=== PATIENT | male | born 1935 | race Caucasian/White ===

== ENCOUNTER → 2019-02-02 06:35 | Outpatient (CLI) | payer MEDICARE, BC, SELFPAY | PROVIDERS: Family Provider Family Medicine; PCP Family Medicine; Referring Provider Family Medicine; Visit Provider Family Medicine | DX: R06.01 Orthopnea (principal); R06.02 Shortness of breath | CPT/HCPCS: 78452; 93017; A9500; A4216; J2785 ==

== ENCOUNTER → 2019-02-24 11:10 | Outpatient (CLI) | payer MEDICARE, BC, SELFPAY ==
[2019-02-24 07:36] VITALS: BMI 23.9
--- NOTE | 2019-02-24 11:17 | RAD_ITS ---
STUDY: X-RAY CHEST REASON FOR EXAM: Male, 83 years old. Chest pain, shortness of breath. TECHNIQUE: PA and lateral views of the chest. COMPARISON: 03/28/2017 FINDINGS: Status post median sternotomy. The lungs are clear and expanded. There is no demonstrated pleural abnormality. Normal size heart. Normal mediastinum and jesus. Normal visualized pulmonary arteries. Normal visualized aortic arch and descending thoracic aorta. Normal visualized thoracic spine. Normal visualized ribs, clavicles, and shoulders. There is no demonstrated abnormality of the visualized soft tissue structures of the upper abdomen. RAD/Chest PA and Lateral IMPRESSION: No active disease. Electronically Signed: Gilles Gaona MD at 9:10 EDT Tel , Service support ,
[2019-02-24 11:47] LABS: Absolute Lymphocyte Count 2.16 X10^3/uL (0.83-4.51); Absolute Neutrophil Count 3.7 X10^3/uL (2.0-7.7); Basophil# 0.05 X10^3/uL; Basophil% 0.8 % (0-1); Eosinophil# 0.22 X10^3/uL; Eosinophils% 3.3 % (0-5); Hematocrit 40.4 % (40-54); Hemoglobin 13.2 g/dL (13.0-16.5); Lymphocyte # 2.16 X10^3/ul (4.0); Lymphocyte % 32.8 % (19-41); Mean Corp Hgb Conc 32.7 g/dL (32-36); Mean Corpuscular Hgb 30.2 pg (27.0-32.0); Mean Corpuscular Volume 92.4 fL (80-94); Mean Platelet Vol. 9.7 fl (6.2-12.0); Monocyte# 0.45 X10^3/uL; Monocyte% 6.8 % (0-10); NRBC Flagged by Analyzer 0 % (0-5); Neutrophil # 3.67 X10^3/uL (2.7-7.7); Neutrophil % 55.8 % (47-70); Platelet Count 213 K/mm3 (150-450); RBC Distribution Width CV 13.6 % (11.6-14.6); RBC Distribution Width SD 46.4 fl (35.1-43.9); Red Blood Count 4.37 M/mm3 (4.6-6.2); White Blood Count 6.6 K/mm3 (4.4-11.0)
[2019-02-24 12:06] LABS: Anion Gap 5 (5-15); BUN 23 mg/dL (7-18); BUN/Creat Ratio 20.7 RATIO (10-20); Calcium,Total 9.1 mg/dL (8.5-10.1); Chloride 104 mmol/L (98-107); Creatinine, Serum 1.11 mg/dL (0.70-1.30); EST Glomerular Filtration Rate 68 mL/min (>60); Est Glom Filt Rate - Afr Amer 82 mL/min (>60); Glucose 120 mg/dL (74-106); Potassium 3.8 mmol/L (3.5-5.1); Sodium Level 139 mmol/L (136-145)
== END ==
PROVIDERS: Family Provider Family Medicine; PCP Family Medicine; Referring Provider Internal Medicine Cardiovascular Disease; Visit Provider Internal Medicine Cardiovascular Disease
DX: Z95.1 Presence of aortocoronary bypass graft (principal); I25.709 Atherosclerosis of coronary artery bypass graft(s), unspecified, with unspecified angina pectoris; I49.3 Ventricular premature depolarization; I10 Essential (primary) hypertension; E78.5 Hyperlipidemia, unspecified; Z95.5 Presence of coronary angioplasty implant and graft
CPT/HCPCS: 36415; 71046; 80048; 85025

== ENCOUNTER 2019-03-01 07:34 | Day surgery (SDC) | payer MEDICARE, BC, SELFPAY ==
[2019-02-24 07:36] VITALS: BMI 23.9
[2019-03-01 07:59] VITALS: BMI 21.7
--- NOTE | 2019-03-11 09:58 | CL.D_ITS ---
Patient Name: RONALD RIVERS Study Date: 03/01/2019 Performing: Dakota Correa MD Ht: 71 inches 180.34 cm : 1935 Wt: 147.69 lbs 66.99 kg Age: 83 Gender: male BSA: 1.85 PROCEDURE(S) PERFORMED [id number]/COR/LV/CABG CLINICAL PROFILE AND INDICATIONS Indications: Suspected CAD Heart Failure: None Stress/Imaging Date: 02/02/19Stress Test with SPECT MPI: Positive Low Risk CAD Presentations: Unstable angina. CONCLUSIONS Patent left internal mammary artery to the left anterior descending artery, sequential saphenous vein graft to the diagonal branch, obtuse marginal branch 1 and 2, are noted to be patent, and the previo usly stented right coronary artery is noted to be patent. RECOMMENDATIONS Medical therapy DESCRIPTION OF PROCEDURE The patient arrived to the procedure lab. The risks and benefits of the procedure as well as a full d escription of our services here and current unavailability of surgical backup were fully explained to the patient and/or their significant other prior to the catheterization. The Timeout was completed, verifying the correct patient and procedure. The patient's procedural site was prepped and draped in the usual fashion. Local anesthetic was given subcutaneously to right groin region with Lidocaine 2%. Using a modified Seldinger technique, arterial access was obtained via the right femoral artery, a 5 Fr sheath was inserted. Left Coronary Artery selective angiography was performed in multiple views u sing a 5 Fr. JL4 catheter. Saphenous Vein graft to the DIAG and om sequential selective angiography was performed in multiple views using a 5 Fr. 3DRC (Kee) catheter. Left internal mammary artery graft to the LAD selective angiography was performed in multiple views using a 5 Fr. 3DRC (Kee) catheter. Right Coronary Artery selective angiography was then performed in multiple views using a 5 Fr. 3DRC (Kee) catheter. Left Ventriculography was performed in ROJAS projection using a 5 Fr. Pigtail catheter. LV to AO pullback pressures were then recorded.Contrast was injected throug h the sheath and the Right Iliac and Femoral artery were assessed for possible closure device.The art erial sheath was pulled and a Mynx closure device was deployed for hemostasis CORONARY ANGIOGRAPHY DOMINANCE: Right Dominant LEFT HEART ASSESSMENT Left Ventricular Ejection Fraction: by LV Gram 60 % Normal LV wall motion Normal Left Ventricular systolic function LEFT MAIN: 40 % Stenosis LEFT ANTERIOR DESCENDING ARTERY: PROX LAD: is occluded CIRCUMFLEX ARTERY: Mild luminal irregularities less than 30% RIGHT CORONARY ARTERY: Previously placed stent is patent GRAFTS: Sequential graft to the Sequential to the diagonal branch, first obtuse and second obtuse marginal b ranch is noted to be patent. DE LA CRUZ graft to the Mid LAD is patent COMPLICATIONS No Complications PROCEDURE MEDICATIONS Versed 1 mg IV Oxygen: 2 L/min via nasal cannula Baby Aspirin (81mg) 1 Tabs PO @ 03/01/2019 08:17:58 SUMMARY OF HEMODYNAMIC DATA Time AIR REST ECG 08:08:18 AO 130/57 (84) SA 11:10:06 LV 99/-9, 3 11:20:44 LV 100/-9, 3 11:20:50 LV 90/-9, -6 11:21:57 LV 95/-6, -2 11:22:04 LVp 88/-6, -4 11:22:09 AOp 93/39 (57) 11:22:15 Signed By Dakota Correa MD On 03/01/2019 11:37:07 AM Dakota Correa MD
== END 2019-03-01 14:46 | disposition home or self-care (01) ==
LOC: CLSP 07:36
PROVIDERS: Family Provider Family Medicine; PCP Family Medicine; Referring Provider Internal Medicine Cardiovascular Disease; Visit Provider Internal Medicine Cardiovascular Disease
DX: I25.709 Atherosclerosis of coronary artery bypass graft(s), unspecified, with unspecified angina pectoris (principal); I49.3 Ventricular premature depolarization; I10 Essential (primary) hypertension; E78.5 Hyperlipidemia, unspecified; Z95.1 Presence of aortocoronary bypass graft; Z95.5 Presence of coronary angioplasty implant and graft; Z79.82 Long term (current) use of aspirin; Z79.899 Other long term (current) drug therapy
CPT/HCPCS: 93459; 99152; 99153; C1760; J7040; C1769; Q9967

== ENCOUNTER → 2019-08-12 09:44 | Outpatient (CLI) | payer MEDICARE, BC, SELFPAY ==
[2019-08-04 13:24] VITALS: BMI 22.7
--- NOTE | 2019-08-12 09:45 | CDU_ITS ---
Reason For Study: Carotid bruit Rt. Velocities/BP Lt. Velocities/BP Prox CCA 114.7/18.2 cm/sec. Prox CCA 100.9/18.8 cm/sec. Mid CCA 113.8/18.8 cm/sec. Mid CCA 88.1/24.3 cm/sec. Dist CCA 112/22.5 cm/sec. Dist CCA 69.9/17 cm/sec. Prox ICA 63/12.6 cm/sec. Prox ICA 130.1/46.7 cm/sec. Mid ICA 76.5/32.3 cm/sec. Mid ICA 138.9/18.2 cm/sec. Dist ICA 94.9/39.7 cm/sec. Dist ICA 81.4/29.8 cm/sec. Rt. ICA/CCA = 0.8. Lt. ICA/CCA = 1.6. Prox ECA 91.2/7.7 cm/sec. Prox ECA 117.3/11.5 cm/sec. Rt. Vert. 47.5/15.4 cm/sec. Lt. Vert. 67.9/20 cm/sec. Right Extracranial There is intimal thickening but no significant atherosclerotic plaque noted in the right common carotid artery. There is heterogeneous, smooth atherosclerotic plaque noted in the right internal carotid artery. There is intimal thickening but no significant atherosclerotic plaque noted in the right external carotid artery. Antegrade flow is noted in the right vertebral artery. Left Extracranial There is intimal thickening but no significant atherosclerotic plaque noted in the left common carotid artery. There is heterogeneous, irregular atherosclerotic plaque noted in the left internal carotid artery. There is intimal thickening but no significant atherosclerotic plaque noted in the left external carotid artery. Antegrade flow is noted in the left vertebral artery. Procedure Carotid Duplex 78834. Exam performed in department. Interpretation Summary Smooth plague at the proximal right internal carotid with <50% stenosis <50% stenosis right external carotid Calcific plague with shadowing distal left common carotid and proximal left internal carotid and external carotid arteries 50-69% stenosis left internal carotid <50% stenosis left external carotid Patent, antegrade vertebrals bilaterally Ordering Physician: Katerin Rodriguez Referring Physician: Aries Chaudhary Performed By: Alberta Santiago RVT
== END ==
PROVIDERS: PCP Family Medicine; Referring Provider Physician Assistant Medical; Visit Provider Physician Assistant Medical
DX: R09.89 Other specified symptoms and signs involving the circulatory and respiratory systems (principal)
CPT/HCPCS: 93880

== ENCOUNTER → 2020-10-23 12:37 | Outpatient (CLI) | payer MEDICARE, BC, SELFPAY ==
[2020-10-23 11:51] VITALS: BMI 22.1
[2020-10-23 13:02] LABS: Absolute Lymphocyte Count 2.38 X10^3/uL (0.83-4.51); Absolute Neutrophil Count 3.4 X10^3/uL (2.0-7.7); Basophil# 0.06 X10^3/uL; Basophil% 0.9 % (0-1); Eosinophil# 0.14 X10^3/uL; Eosinophils% 2.2 % (0-5); Hematocrit 39.4 % (40-54); Hemoglobin 13.1 g/dL (13.0-16.5); Lymphocyte # 2.38 X10^3/ul (0.83-4.51); Lymphocyte % 37.4 % (19-41); Mean Corp Hgb Conc 33.2 g/dL (32-36); Mean Corpuscular Hgb 30.8 pg (27.0-32.0); Mean Corpuscular Volume 92.7 fL (80-94); Mean Platelet Vol. 9.2 fl (6.2-12.0); Monocyte# 0.34 X10^3/uL; Monocyte% 5.3 % (0-10); NRBC Flagged by Analyzer 0 % (0-5); Neutrophil # 3.44 X10^3/uL (2.7-7.7); Platelet Count 301 K/mm3 (150-450); RBC Distribution Width CV 12.9 % (11.6-14.6); RBC Distribution Width SD 43.7 fl (35.1-43.9); Red Blood Count 4.25 M/mm3 (4.6-6.2); White Blood Count 6.4 K/mm3 (4.4-11.0)
[2020-10-23 14:20] LABS: BNP,B-Type NATRIURETIC PEPTIDE 142.6 pg/mL (0-100)
[2020-10-23 14:23] LABS: Anion Gap 5 (5-15); BUN 20 mg/dL (7-18); Calcium,Total 9.6 mg/dL (8.5-10.1); Chloride 101 mmol/L (98-107); Creatinine, Serum 0.95 mg/dL (0.70-1.30); EST Glomerular Filtration Rate 80 mL/min (>60); Est Glom Filt Rate - Afr Amer 97 mL/min (>60); Glucose 104 mg/dL (74-106); Magnesium 2.5 mg/dL (1.6-2.6); Potassium 3.8 mmol/L (3.5-5.1); Sodium Level 136 mmol/L (136-145)
== END ==
PROVIDERS: PCP Family Medicine; Referring Provider Nurse Practitioner Family; Visit Provider Nurse Practitioner Family
DX: E78.5 Hyperlipidemia, unspecified (principal); I25.709 Atherosclerosis of coronary artery bypass graft(s), unspecified, with unspecified angina pectoris; I10 Essential (primary) hypertension; R06.00 Dyspnea, unspecified; Z95.1 Presence of aortocoronary bypass graft; Z95.5 Presence of coronary angioplasty implant and graft
CPT/HCPCS: 36415; 80048; 83735; 83880; 85025

== ENCOUNTER → 2020-11-23 08:43 | Outpatient (CLI) | payer MEDICARE, BC, SELFPAY ==
[2020-11-14 15:00] VITALS: BMI 22.1
[2020-11-15 11:25] VITALS: BMI 22.1
--- NOTE | 2020-11-23 08:47 | CDU_ITS ---
Reason For Study: Carotid stenosis Rt. Velocities/BP Lt. Velocities/BP Prox CCA 123.5/23 cm/sec. Prox CCA 141.8/36.4 cm/sec. Mid CCA 77.8/13.9 cm/sec. Mid CCA 103.4/23 cm/sec. Dist CCA 127.1/21.2 cm/sec. Dist CCA 80.6/15.5 cm/sec. Prox ICA 51.1/12.7 cm/sec. Prox ICA 130.2/44.4 cm/sec. Mid ICA 72.1/30.2 cm/sec. Mid ICA 137.5/24.3 cm/sec. Dist ICA 86.3/28.1 cm/sec. Dist ICA 80.2/23.7 cm/sec. Rt. ICA/CCA = 0.70. Lt. ICA/CCA = 1.33. Prox ECA 101.6/12.1 cm/sec. Prox ECA 109.4/5.3 cm/sec. Rt. Vert. 42.4/14.7 cm/sec. Lt. Vert. 53.8/16.9 cm/sec. Right Extracranial There is intimal thickening but no significant atherosclerotic plaque noted in the right common carotid artery. There is homogeneous, smooth atherosclerotic plaque noted in the right internal carotid artery. There is intimal thickening but no significant atherosclerotic plaque noted in the right external carotid artery. Antegrade flow is noted in the right vertebral artery. Left Extracranial There is intimal thickening but no significant atherosclerotic plaque noted in the left common carotid artery. There is heterogeneous, irregular atherosclerotic plaque noted in the left internal carotid artery. There is intimal thickening but no significant atherosclerotic plaque noted in the left external carotid artery. Antegrade flow is noted in the left vertebral artery. Procedure Carotid Duplex 22794. This is a Carotid Duplex examination using B-mode, color flow and specral Doppler. Exam performed in department. VL/Carotid Duplex Ultrasound Interpretation Summary Smooth plaque within the right common carotid and internal carotid artery with less than 50% stenosis of the internal carotid artery Less than 50% stenosis right external carotid artery Calcific plaque with shadowing at the proximal left internal carotid artery wit h 50 to 69% stenosis. Less than 50% stenosis left external carotid artery Patent and antegrade vertebral arteries bilaterally No change from the previous examination of August 12, 2019 Ordering Physician: Dom Garcia Referring Physician: Aries Chaudhary Performed By: Alberta Santiago RVT and Student
== END ==
PROVIDERS: PCP Family Medicine; Referring Provider Surgery; Visit Provider Surgery
DX: I65.23 Occlusion and stenosis of bilateral carotid arteries (principal)
CPT/HCPCS: 93880

== ENCOUNTER 2020-11-27 05:16 | Day surgery (SDC) | payer MEDICARE, BC, SELFPAY ==
[2020-11-14 15:00] VITALS: BMI 22.1
[2020-11-15 11:25] VITALS: BMI 22.1
[2020-11-27] VITALS (7 sets, daily range): BP systolic 94–141; BP diastolic 53–89; PULSE 64–84; RESP 16; TEMP 36.1–36.6; O2SAT 96–100; BMI 22.6
--- NOTE | 2020-11-27 | GASB_PTH ---
PATIENT: RONALD RIVERS LOC: EN U#:[id number] AGE/SX: 85/M ROOM: RE11/27/[address]: Dr. Dom Garcia MD : 1935 BED: DIS: 11/27/2020 SPEC #: [id number] RECD: 11/27/20 07:11 STATUS: TRANG WILLINGHAMYovany #: [id number] HANNAH: 11/27/20 00:[address]: Dom Garcia DEPT: SURGICAL PATHOLOGY RECD BY: Fabiano Schmitz ENTERED: 11/27/20 09:50 SP TYPE: Gastric Bx OTHR DR: Dr. Aries Chaudhary MD Tissues: A - Gastric mucous membrane B - Gastric mucous membrane C - Esophageal mucous membrane D - Esophageal mucous membrane Procedures: Special Stain Group I Surgery Specimen Level IV GMS Stain (control) HEADER OPERATION: EGD (MAC), possible dilatation PRE-OP DIAGNOSIS: History of esophageal stricture TISSUE SUBMITTED: A - Duodenum biopsy, B - Antrum biopsy for H. pylori and path, C - Distal esophagus biopsy, D - Mid esophagus biopsy MICROSCOPIC DIAGNOSIS A. Duodenum, biopsy: Minimal nonspecific chronic inflammation. B. Gastric antrum, biopsy: Minimal chronic inflammation. See comment. C. Distal esophagus, biopsy: Focal changes of reflux. D. Mid esophagus, biopsy: Focal acute inflammation. Negative for fungal organisms. See comment. AM:brandi 11/28/2020 COMMENT B. The results of immunohistochemistry for Helicobacter pylori will be reported separately ([id number]). D. GMS stain with matched control was used in the evaluation of this case. MICROSCOPIC DESCRIPTION Slides are reviewed. GROSS DESCRIPTION A - Received in fixative is one container labeled with the patient's name and designated duodenum biopsy. The specimen consists of one irregular fragment of light florence soft tissue that measures 0.6 x 0.2 x 0.1 cm. The specimen is totally submitted in one cassette. B - Received in fixative is one container labeled with the patient's name and designated antrum biopsy. The specimen consists of one irregular fragment of light florence soft tissue that measures 0.4 x 0.2 x 0.1 cm. The specimen is totally submitted in one cassette. C - Received in fixative is one container labeled with the patient's name and designated distal esophagus biopsy. The specimen consists of two irregular fragments of light florence soft tissue that in aggregate measure 0.4 x 0.2 x 0.1 cm. The specimen is totally submitted in one cassette. D - Received in fixative is one container labeled with the patient's name and designated mid esophagus biopsy. The specimen consists of one irregular fragment of light florence soft tissue that measures 0.6 x 0.3 x 0.1 cm. The specimen is totally submitted in one cassette. / SJ:rg 11/28/2020 TC:2 CPT: 56875 x4, 84295
--- NOTE | 2020-11-27 05:43 | PCM.HP.BLA ---
History and Physical Date of Admission: 11/27/20 November 23, 2020 Reason For Study: Carotid stenosis Rt. Velocities/BP Lt. Velocities/BP Prox CCA 123.5/23 cm/sec. Prox CCA 141.8/36.4 cm/sec. Mid CCA 77.8/13.9 cm/sec. Mid CCA 103.4/23 cm/sec. Dist CCA 127.1/21.2 cm/sec. Dist CCA 80.6/15.5 cm/sec. Prox ICA 51.1/12.7 cm/sec. Prox ICA 130.2/44.4 cm/sec. Mid ICA 72.1/30.2 cm/sec. Mid ICA 137.5/24.3 cm/sec. Dist ICA 86.3/28.1 cm/sec. Dist ICA 80.2/23.7 cm/sec. Rt. ICA/CCA = 0.70. Lt. ICA/CCA = 1.33. Prox ECA 101.6/12.1 cm/sec. Prox ECA 109.4/5.3 cm/sec. Rt. Vert. 42.4/14.7 cm/sec. Lt. Vert. 53.8/16.9 cm/sec. Right Extracranial There is intimal thickening but no significant atherosclerotic plaque noted in the right common carotid artery. There is homogeneous, smooth atherosclerotic plaque noted in the right internal carotid artery. There is intimal thickening but no significant atherosclerotic plaque noted in the right external carotid artery. Antegrade flow is noted in the right vertebral artery. Left Extracranial There is intimal thickening but no significant atherosclerotic plaque noted in the left common carotid artery. There is heterogeneous, irregular atherosclerotic plaque noted in the left internal carotid artery. There is intimal thickening but no significant atherosclerotic plaque noted in the left external carotid artery. Antegrade flow is noted in the left vertebral artery. Procedure Carotid Duplex 06814. This is a Carotid Duplex examination using B-mode, color flow and specral Doppler. Exam performed in department. VL/Carotid Duplex Ultrasound Interpretation Summary Smooth plaque within the right common carotid and internal carotid artery with less than 50% stenosis of the internal carotid artery Less than 50% stenosis right external carotid artery Calcific plaque with shadowing at the proximal left internal carotid artery with 50 to 69% stenosis. Less than 50% stenosis left external carotid artery Patent and antegrade vertebral arteries bilaterally No change from the previous examination of August 12, 2019 Ordering Physician: Dom Garcia Referring Physician: Aries Chaudhary Performed By: Alberta Santiago RVT and Student Intake Visit Reasons: Esophagogastroduodenoscopy Chief Complaint: pain/burning frequent urinary Rodeo Clown Required: No Is patient in pain?: No Allergies codeine Adverse Reaction (Verified 11/14/20 14:59) Unknown Dgxekbf-Nfp-Pxo Reductase Inhibitor Adverse Reaction (Verified 11/14/20 14:59) myalgias Medications ascorbic acid (vitamin C) 500 mg PO DAILY@0800 04/09/15 [History Confirmed 11/14/20] cod liver oil 1 ea PO DAILY 04/09/15 [History Confirmed 11/14/20] glucosam mensah rqd-ywbaizbvw-O-Mn 1 ea PO DAILY 04/09/15 [History Confirmed 11/14/20] tamsulosin 0.4 cap PO DAILY 04/09/15 [History Confirmed 11/14/20] aspirin 81 mg PO DAILY@0800 04/11/15 [History Confirmed 11/14/20] amlodipine 5 mg tablet 5 mg PO DAILY 02/16/19 [History Confirmed 11/14/20] rosuvastatin 10 mg tablet 10 mg PO QWEEK #14 tab 09/14/19 [Rx Confirmed 11/14/20] metoprolol succinate 25 mg tablet,extended release 24 hr 25 mg PO DAILY #90 tab 12/02/19 [Rx Confirmed 11/14/20] lisinopril 20 mg tablet 20 mg PO DAILY #90 tab 04/21/20 [Rx Confirmed 11/14/20] famotidine 40 mg tablet 40 mg PO BID tab 10/23/20 [History Confirmed 11/14/20] nitroglycerin 0.4 mg sublingual tablet 0.4 mg SUBLINGUAL Q5-15M PRN 10/23/20 [History Confirmed 11/14/20] vitamin E (dl, acetate) 90 mg (200 unit) capsule 200 unit PO DAILY 10/23/20 [History Confirmed 11/14/20] hydrochlorothiazide 25 mg tablet 25 mg PO DAILY tab 10/26/20 [History Confirmed 11/14/20] PFSH Medical History 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 Bilateral carotid artery stenosis Essential (primary) hypertension Glaucoma History of esophageal stricture Hyperlipidemia Premature ventricular contractions Prostate cancer Secondary pulmonary arterial hypertension Stenosis of left carotid artery Surgical History H/O coronary artery bypass surgery (11/09/02) History of coronary artery stent placement (07/22/12) History of esophageal dilatation History of left heart catheterization (03/01/19) History of spinal fusion Social History Smoking Status: Never smoker alcohol intake: never substance use type: does not use caffeine: No HPI HPI HPI: RONALD RIVERS, is a 85 M who presents to the office today for surgical consultation potential treatment for esophageal dysphagia and known esophageal stricture. The patient's primary care physician is Dr. Chaudhary. His toll line inspector is Dr. Dakota Correa. The patient has had a long-term history of esophageal strictures. His most recent upper endoscopy was February 23, [address] Hong Kim. Benign appearing esophageal stenosis was identified. There were rings of esophagus suspicious for eosinophilic esophagitis in the mid esophagus but biopsies proved just to find inflammatory tissue. The stenosis that was identified was mildly severe and dilated to 20 mm with a 18 1920 mm balloon. It is of note that previously April 07, [address] Hong Kim an upper endoscopy was performed at that time as well. At that point maximum dilatation was performed to 18 mm. Again 1 stenosis was identified. The location of the stenosis not clarified in either of those 2 notes[address] Prior to that Dr. Vik Cantu performed an upper endoscopy January 29, 2013. There was a benign-appearing stricture found at the GE junction. That was dilated to 18 mm at that time. Small hiatal hernia was identified. It is of note that the patient has been on famotidine 40 mg twice daily. Neither he nor his thinks that he is ever been on a proton pump inhibitor. The patient does have atherosclerotic coronary vascular disease. In 2002 had coronary bypass grafting x5. June 2009 he had a drug-eluting stent placed in the right coronary. 2012 he had a drug-eluting stent placed in the proximal right coronary artery. In January 2019 he had a abnormal stress test and had cardiac catheterization which apparently did not demonstrate any new disease. He is not currently on any clopidogrel. He is managed with fish oil and low-dose aspirin. He has symptoms where repetitively meat boluses and bread will get stuck. He has to drink hot water with his meals to help dilate his esophagus. He has to use Coca-Cola to help dislodge frequent episodes of partial obstruction. ROS General General: Yes fatigue; No weight change, appetite, colon cancer, breast cancer or weakness HEENT HEENT: Yes difficulty swallowing and swollen glands; No eye injury, eye surgery or hoarseness Endo Endocrine: No thyroid disease, diabetes mellitus, thyroid cancer, Hair loss, heat intolerance or cold intolerance Skin Skin: No rash or changing moles Breast Breast: No left breast lump, right breast lump, nipple discharge, breast pain, abnormal mammogram, abnormal US or breast enlargement Musc Musculoskeletal: Yes arthritis; No back problems, rheumatoid arthritis, gout or joint pain Cardio Cardiovascular: Yes heart disease, high blood pressure, heart attack and heart stent; No murmur, pacemaker, atrial fibrillation, palpitations, shortness of breat with exertion or chest pain Psych Psychiatric: No depression, anxiety or hearing voices Resp Respiratory: Yes shortness of breath, No sleep apnea, Yes cough, No COPD, No asthma, No emphysema and No wheezing Gastro Gastrointestinal: No abdominal pain, No nausea or vomiting, No diarrhea, No constipation, No blood in stool, Yes acid reflux, No hemorrhoids, No ulcers, No gallbladder problem and No black,tarry stools Paul Hematologic: No blood thinners, No blood disorders, No bleeding, No anemia and No blood clots Neuro Neurologic: No system reviewed and no additional complaints, except as documented, No as per HPI, No abnormal gait, No abnormal hearing, No abnormal movements, No abnormal speech, No behavioral changes, No burning sensations, No confusion, No convulsions, No disequilibrium, No dizziness, No localized weakness, No frequent falls, No headache(s), No lack of coordination, No loss of vision, No memory loss, Yes numbness, No other visual disturbances, No radicular pain, No restless legs, No sensory deficit, No syncope, Yes tingling, No tremor(s), No weakness and No other Exam Const General: cooperative, healthy appearing, comfortable and no acute distress [facility] Head: normal to inspection Eyes General: appearance normal, both eyes and all related structures Neck Carotids: normal carotid upstroke and no bruits Chest Chest palpation & inspection: normal inspection of the chest Resp Effort & Inspection: normal respiratory effort Auscultation: clear to auscultation bilaterally Cardio Rhythm: regular rhythm GI Palpation: soft and no hepatosplenomegaly Auscultation: normal bowel sounds Skin General: no rashes or lesions noted Extrem General: normal to inspection Psych Thought Content: normal Assessment and Plan Assessment and Plan (1) History of esophageal stricture: Status: Chronic (2) H/O coronary artery bypass surgery: Status: Resolved Comment: CABG x 5 DE LA CRUZ-LAD, Sequential SVG-D1, OM1, OM2, SVG-RPDA, 11/09/2002 (3) Stenosis of left carotid artery: Status: Chronic Orders: Orders: Carotid Duplex Ultrasound Today Plan Details Additional Comments: 85-year-old gentleman. Has had repetitive episodes of esophageal stricturing. He is managed with H2 haven famotidine 40 mg twice daily. By his report he has never been on a PPI. He is not on any anticoagulation other than fish oil and aspirin. We will have him hold that temporarily preprocedure. It may be a strong indication to place him on a PPI post procedure. As previously careful inspection for possible eosinophilic esophagitis will be pursued. We will also be checking for H. pylori. The patient's had a history of carotid stenosis. He has not had an updated carotid duplex exam. I do not detect a carotid bruit but certainly recommend pursuing repeat examination. The patient has not had COVID-19. Neither he nor his have been vaccinated. I did briefly discuss with them risk benefit of the Covid vaccine vaccination. I believe that this patient is at increased risk based upon his reflux disease and esophageal stricturing and coronary artery disease. He states that he will discuss that at his cardiology appointment tomorrow. I appreciate the opportunity of assisting with surgical care. We will pursue carotid duplex imaging and we will schedule him for a esophagogastroduodenoscopy with anticipated biopsy and distal esophageal dilatation. I anticipate this will be a mouabgi-cum-abwgf procedure. He is well aware of the potential risk of esophageal tearing or injury. We will have him hold his fish oil and aspirin preprocedure in hopes of limiting risk of bleeding. Copy: Dr. Aries Chaudhary and Dr. Dakota Correa and Forrest sims, MARCELLO Garcia M.D., F.A.C.S. Coding Level of Care Code Off vis,new,level 3 Diagnoses History of esophageal stricture Z87.19 H/O coronary artery bypass surgery Z95.1 Stenosis of left carotid artery I65.22 I have re-examined the patient. There are no clinical changes since date of exam.
[2020-11-27] MEDS: Lactated Ringers 1,000 ML 100 ML IV (05:59)
--- NOTE | 2020-11-27 06:30 | IMM_PTH ---
PATIENT: RONALD RIVERS LOC: EN U#:[id number] AGE/SX: 85/M ROOM: RE11/27/[address]: Dr. Dom Garica MD : 1935 BED: DIS: 11/27/2020 SPEC #: [id number] RECD: 11/27/20 09:12 STATUS: TRANG REYovany #: [id number] HANNAH: 11/27/20 06:[address]: Dom Garcia DEPT: IMMUNOHISTOCHEMISTRY RECD BY: Sandra Ramos ENTERED: 11/27/20 09:13 SP TYPE: IMMUNO OTHR DR: Dr. Aries Chaudhary MD Tissues: B - Stomach, NOS Procedures: H Pylori (initial) PHYSICIAN & INSTITUTION [place] [address] SPECIMEN INFORMATION: Tissue Source: B ? Antrum biopsy Clinical Info: Esophageal stricture Specimen Number: [id number] CPT code: 53771 METHODOLOGY: Deparaffinized sections of prefer/formalin-fixed tissue or PAP/DQ stained slides are incubated with monoclonal/polyclonal antibodies/oligonucleotide probes. Localization is made via biotin free immunoperoxidase method. Appropriate controls are performed and reacted as expected. Results on target cell population are indicated in the following table: RESULTS: ANTIBODY / CLONE RESULT Block B H Pylori (polyclonal) negative These tests were developed and their performance characteristics determined by [facility]. They may not have been cleared or approved by the U.[place]. Food and Drug Administration. The FDA has determined that such clearance or approval is not necessary. INTERPRETATION: B. Antrum, biopsy: Negative for Helicobacter pylori organisms. AM:brandi 11/28/2020
--- NOTE | 2020-11-27 06:30 | IMM_PTH ---
PATIENT: RONALD RIVERS LOC: EN U#:[id number] AGE/SX: 85/M ROOM: RE11/27/[address]: Dr. Dom Garcia MD : 1935 BED: DIS: 11/27/2020 SPEC #: [id number] RECD: 11/27/20 09:12 STATUS: TRANG REYovany #: [id number] HANNAH: 11/27/20 06:[address]: Dom Garcia DEPT: IMMUNOHISTOCHEMISTRY RECD BY: Sandra Ramos ENTERED: 11/27/20 09:13 SP TYPE: IMMUNO OTHR DR: Dr. Aries Chaudhary MD Tissues: B - Stomach, NOS Procedures: H Pylori (initial) PHYSICIAN & INSTITUTION [place] [id number] SPECIMEN INFORMATION: Tissue Source: B ? Antrum biopsy Clinical Info: Esophageal stricture Specimen Number: [id number] CPT code: 22115 METHODOLOGY: Deparaffinized sections of prefer/formalin-fixed tissue or PAP/DQ stained slides are incubated with monoclonal/polyclonal antibodies/oligonucleotide probes. Localization is made via biotin free immunoperoxidase method. Appropriate controls are performed and reacted as expected. Results on target cell population are indicated in the following table: RESULTS: ANTIBODY / CLONE RESULT Block B H Pylori (polyclonal) negative These tests were developed and their performance characteristics determined by [facility]. They may not have been cleared or approved by the U.S. Food and Drug Administration. The FDA has determined that such clearance or approval is not necessary. INTERPRETATION: B. Antrum, biopsy: Negative for Helicobacter pylori organisms. AM:brandi 11/27/2020
--- NOTE | 2020-11-27 07:04 | OP.CCLET_ITS ---
11/27/2020 Aries Chaudhary Re : Upper GI endoscopy procedure for Wade Carter Neena This procedure was performed on Friday, November 27, 2020. My impressions and recommendations are as follows: Impressions : - Z-line irregular, 40 cm from the incisors. - Benign-appearing esophageal stenosis. Dilated. - LA Grade A reflux esophagitis. Biopsied. - Medium-sized hiatal hernia. - Normal stomach. Biopsied. - Normal examined duodenum. Biopsied. - Normal middle third of esophagus. Biopsied. Recommendations : - Discharge patient to home. - Resume previous diet. - Continue present medications. - Return to my office in 10 days. My findings are described in the full procedure note, which is enclosed. If I can be of further assistance, please feel free to contact me at Doctor phone number(s): Work: . Sincerely, Dom Garcia MD 11/27/2020 7:03:38 AM This report has been signed electronically.
--- NOTE | 2020-11-27 07:04 | OP.EGD_ITS ---
Patient Name: Wade Myles Procedure Date: 11/27/2020 6:11 AM Date of : 1935 Age: 85 Procedure: Upper GI endoscopy Indications: Dysphagia Providers: Dom Garcia MD Referring MD: Dom Garcia MD Medicines: See the Anesthesia note for documentation of the administered medications Complications: No immediate complications. Procedure: Pre-Anesthesia Assessment: - Prior to the procedure, a History and Physical was performed, and patient medications and allergies were reviewed. The patient's tolerance of previous anesthesia was also reviewed. The risks and benefits of the procedure and the sedation options and risks were discussed with the patient. All questions were answered, and informed consent was obtained. Prior Anticoagulants: The patient has taken no previous anticoagulant or antiplatelet agents. ASA Grade Assessment: II - A patient with mild systemic disease. After reviewing the risks and benefits, the patient was deemed in satisfactory condition to undergo the procedure. After obtaining informed consent, the endoscope was passed under direct vision. Throughout the procedure, the patient's blood pressure, pulse, and oxygen saturations were monitored continuously. The Endoscope was introduced through the mouth, and advanced to the second part of duodenum. The upper GI endoscopy was accomplished without difficulty. The patient tolerated the procedure well. Scope In: 6:34:29 AM Scope Out: 6:48:30 AM Total Procedure Duration Time 0 hours 14 minutes 1 second Findings: The Z-line was irregular and was found 40 cm from the incisors. One benign-appearing, intrinsic stenosis was found 40 cm from the incisors. This stenosis was moderately severe and. The stenosis was traversed. A TTS dilator was passed through the scope. Dilation with an 18-19-20 mm balloon dilator was performed to 20 mm. The dilation site was examined following endoscope reinsertion and showed moderate improvement in luminal narrowing. Estimated blood loss was minimal. LA Grade A (one or more mucosal breaks less than 5 mm, not extending between tops of 2 mucosal folds) esophagitis with no bleeding was found 40 cm from the incisors. Biopsies were taken with a cold forceps for histology. A medium-sized hiatal hernia was present. The entire examined stomach was normal. Biopsies were taken with a cold forceps for histology. The examined duodenum was normal. Biopsies were taken with a cold forceps for histology. The middle third of the esophagus was normal. Biopsies were taken with a cold forceps for histology. Impression: - Z-line irregular, 40 cm from the incisors. - Benign-appearing esophageal stenosis. Dilated. - LA Grade A reflux esophagitis. Biopsied. - Medium-sized hiatal hernia. - Normal stomach. Biopsied. - Normal examined duodenum. Biopsied. - Normal middle third of esophagus. Biopsied. Recommendation: - Discharge patient to home. - Resume previous diet. - Continue present medications. - Return to my office in 10 days. Procedure Code(s): --- Professional --- 24553, Esophagogastroduodenoscopy, flexible, transoral; with transendoscopic balloon dilation of esophagus (less than 30 mm diameter) 35596, 59, Esophagogastroduodenoscopy, flexible, transoral; with biopsy, single or multiple Diagnosis Code(s): --- Professional --- K22.8, Other specified diseases of esophagus K22.2, Esophageal obstruction K21.0, Gastro-esophageal reflux disease with esophagitis K44.9, Diaphragmatic hernia without obstruction or gangrene R13.10, Dysphagia, unspecified CPT copyright 2017 [employer]. All rights reserved. The codes documented in this report are preliminary and upon medical records coder review may be revised to meet current compliance requirements. Dom Garcia MD 11/27/2020 7:03:38 AM This report has been signed electronically. Number of Addenda: 0 Note Initiated On: 11/27/2020 6:11 AM
== END 2020-11-27 07:56 ==
LOC: EN 05:17 → AC 05:18
PROVIDERS: PCP Family Medicine; Referring Provider Family Medicine; Visit Provider Surgery
PROC: 0DJ08ZZ Inspection of Upper Intestinal Tract, Via Natural or Artificial Opening Endoscopic (ICD-10-PCS; CPT 43235; principal; 2020-11-27 06:25)
DX: K22.2 Esophageal obstruction (principal); K22.8 Other specified diseases of esophagus; K21.00 Gastro-esophageal reflux disease with esophagitis, without bleeding; K44.9 Diaphragmatic hernia without obstruction or gangrene; I65.23 Occlusion and stenosis of bilateral carotid arteries; Z79.82 Long term (current) use of aspirin; Z95.5 Presence of coronary angioplasty implant and graft; Z20.828 Contact with and (suspected) exposure to other viral communicable diseases
CPT/HCPCS: 43239; 43249; 87426; 88305; 88312; 88342; C9803; J7120; J2405

== ENCOUNTER 2021-08-31 15:41 | Outpatient (CLI) | payer MEDICARE, BC, SELFPAY ==
[2021-08-31 17:36] LABS: AST(SGOT) 31 U/L (15-37); Alanine Aminotransfer ALT/SGPT 25 U/L (16-61); Albumin, Serum 3.3 g/dL (3.2-5.0); Alkaline Phosphatase 75 U/L (45-117); Bilirubin, Direct 0.17 mg/dL (0.00-0.30); Cholesterol 158 mg/dL (200); Globulin 3.4 g/dL (2.2-4.2); High Density Lipoprotein 64 mg/dL; Protein, Total 6.7 g/dL (6.4-8.2); Triglycerides 70 mg/dL; Very Low Density Lipoprotein 14 mg/dL (5-40)
== END 2021-08-31 23:59 | disposition home or self-care (01) ==
LOC: LAB 15:43
PROVIDERS: PCP Family Medicine; Visit Provider Internal Medicine Cardiovascular Disease
DX: E78.5 Hyperlipidemia, unspecified (principal); I25.709 Atherosclerosis of coronary artery bypass graft(s), unspecified, with unspecified angina pectoris
CPT/HCPCS: 36415; 80061; 80076

== ENCOUNTER → 2021-12-06 | Outpatient (CLI) | payer MEDICARE, BC, SELFPAY ==
--- NOTE | 2021-12-06 08:02 | CDU_ITS ---
Reason For Study: carotid stenosis Rt. Velocities/BP Lt. Velocities/BP Prox CCA 99.5/14.7 cm/sec. Prox CCA 110.1/18.8 cm/sec. Mid CCA 113.9/21.3 cm/sec. Mid CCA 99.8/16.3 cm/sec. Dist CCA 66.9/13.4 cm/sec. Dist CCA 71.6/9.0 cm/sec. Prox ICA 59.1/20.0 cm/sec. Prox ICA 144.8/37.1 cm/sec. Mid ICA 64.3/22.6 cm/sec. Mid ICA 96.2/22.5 cm/sec. Dist ICA 85.2/26.5 cm/sec. Dist ICA 87.6/29.8 cm/sec. Rt. ICA/CCA = .7. Lt. ICA/CCA = 1.5. Prox ECA 107.3/8.2 cm/sec. Prox ECA 125.6/7.7 cm/sec. Rt. Vert. 44.3/12.4 cm/sec. Lt. Vert. 40.9/13.9 cm/sec. Right Extracranial There is intimal thickening but no significant atherosclerotic plaque noted in the right common carotid artery. There is heterogeneous, irregular atherosclerotic plaque noted in the right internal carotid artery. There is intimal thickening but no significant atherosclerotic plaque noted in the right external carotid artery. Antegrade flow is noted in the right vertebral artery. Left Extracranial There is intimal thickening but no significant atherosclerotic plaque noted in the left common carotid artery. There is heterogeneous, irregular atherosclerotic plaque noted in the left internal carotid artery. There is intimal thickening but no significant atherosclerotic plaque noted in the left external carotid artery. Antegrade flow is noted in the left vertebral artery. Procedure Carotid Duplex [id number]. This is a Carotid Duplex examination using B-mode, color flow and specral Doppler. The exam was diagnostic. Exam performed in department. VL/Carotid Duplex Ultrasound Interpretation Summary Regular calcific plaque in the proximal right internal carotid artery with less than 50% stenosis Less than 50% stenosis right external carotid artery Minimal calcific plaque with shadowing at the proximal left internal carotid ar katie with 50 to 69% stenosis. Less than 50% stenosis left external carotid artery Patent and antegrade vertebral arteries bilaterally No change from the previous examination of November 23, 2020 Ordering Physician: Dom Garcia Performed By: Bharathi Moscoso RVT
== END | disposition home or self-care (01) ==
LOC: CVS 08:01
PROVIDERS: PCP Family Medicine; Visit Provider Surgery
DX: I65.23 Occlusion and stenosis of bilateral carotid arteries (principal)
CPT/HCPCS: 93880

== ENCOUNTER → 2021-12-24 | Outpatient (CLI) | payer MEDICARE, BC, SELFPAY ==
[2021-12-24 10:51] LABS: Absolute Lymphocyte Count 2.42 X10^3/uL (0.83-4.51); Absolute Neutrophil Count 3.3 X10^3/uL (2.0-7.7); Basophil# 0.05 X10^3/uL; Basophil% 0.8 % (0-1); Eosinophil# 0.11 X10^3/uL; Eosinophils% 1.7 % (0-5); Hematocrit 42.2 % (40-54); Hemoglobin 13.8 g/dL (13.0-16.5); Lymphocyte # 2.42 X10^3/ul (0.83-4.51); Lymphocyte % 38.5 % (19-41); Mean Corp Hgb Conc 32.7 g/dL (32-36); Mean Corpuscular Hgb 30.6 pg (27.0-32.0); Mean Corpuscular Volume 93.6 fL (80-94); Mean Platelet Vol. 9.5 fl (6.2-12.0); Monocyte# 0.44 X10^3/uL; NRBC Flagged by Analyzer 0 % (0-5); Neutrophil # 3.26 X10^3/uL (2.7-7.7); Neutrophil % 51.8 % (47-70); Platelet Count 251 K/mm3 (150-450); RBC Distribution Width CV 13.7 % (11.6-14.6); RBC Distribution Width SD 47.5 fl (35.1-43.9); Red Blood Count 4.51 M/mm3 (4.6-6.2); White Blood Count 6.3 K/mm3 (4.4-11.0)
[2021-12-24 11:18] LABS: Anion Gap 7 (5-15); BUN 28 mg/dL (7-18); BUN/Creat Ratio 30.1 RATIO (10-20); Calcium,Total 9.4 mg/dL (8.5-10.1); Chloride 101 mmol/L (98-107); Creatinine, Serum 0.93 mg/dL (0.70-1.30); EST Glomerular Filtration Rate 82 mL/min (>60); Est Glom Filt Rate - Afr Amer 100 mL/min (>60); Glucose 94 mg/dL (74-106); Magnesium 2.5 mg/dL (1.6-2.6); Potassium 3.9 mmol/L (3.5-5.1); Sodium Level 138 mmol/L (136-145); Thyroid Stim Hormone (TSH) 1.71 uIU/mL (0.358-3.74)
== END | disposition home or self-care (01) ==
LOC: LAB 10:14
PROVIDERS: PCP Family Medicine; Visit Provider Physician Assistant Medical
DX: I25.709 Atherosclerosis of coronary artery bypass graft(s), unspecified, with unspecified angina pectoris (principal); I65.23 Occlusion and stenosis of bilateral carotid arteries; I10 Essential (primary) hypertension; I49.3 Ventricular premature depolarization; E78.5 Hyperlipidemia, unspecified
CPT/HCPCS: 36415; 80048; 83735; 84443; 85025

== ENCOUNTER → 2022-01-01 | Outpatient (CLI) | payer MEDICARE, BC, SELFPAY | END | disposition home or self-care (01) | LOC: PSN 13:30 | PROVIDERS: PCP Family Medicine; Referring Provider Physician Assistant Medical; Visit Provider Physician Assistant Medical | DX: I25.709 Atherosclerosis of coronary artery bypass graft(s), unspecified, with unspecified angina pectoris (principal); I65.23 Occlusion and stenosis of bilateral carotid arteries; I10 Essential (primary) hypertension; I49.3 Ventricular premature depolarization; E78.5 Hyperlipidemia, unspecified | CPT/HCPCS: 93225; 93226 ==

== ENCOUNTER → 2022-01-14 | Outpatient (CLI) | payer MEDICARE, BC, SELFPAY ==
--- NOTE | 2022-01-14 19:20 | STRESSREP ---
Stress Test Report Pharmacologic myocardial perfusion stress test. 86-year-old man with a history of coronary artery disease and CHF. Resting EKG demonstrates sinus rhythm with a rate of 69 bpm frequent premature ventricular complexes noted. 0.4 mg of regadenoson was infused per usual protocol followed by wrap intravenous saline flush injection continuous EKG monitoring was performed. The patient maintained sinus rhythm throughout the recording. At rest there were no ST or T wave changes noted to suggest abnormal flow reserve and at peak infusion nonspecific ST changes were noted with did not meet the criteria for ischemia. The maximum heart rate was 94 bpm which was 69% of max impacted heart rate the maximum workload was 1 metabolic equivalent. Myocardial perfusion protocol. 11.2 mCi of technetium 99m sestamibi was injected. 0.4 mg of regadenoson was infused per usual protocol. At peak infusion 33.0 mCi of technetium 99m sestamibi was injected. Stress images were obtained stress and rest images were reconstructed in comparing the short axis vertical long and horizontal long axis. Gated images were unable to be obtained. Perfusion SPECT analysis: Review of the stress images demonstrate normal uptake of tracer noted in all areas of the myocardium. The resting images similarly demonstrate normal uptake of tracer noted in all areas of the myocardium. No areas of reversibility are noted to suggest ischemia and no previous infarct is noted. Conclusion: Normal pharmacologic myocardial perfusion stress test.
== END | disposition home or self-care (01) ==
PROVIDERS: PCP Family Medicine; Referring Provider Physician Assistant Medical; Visit Provider Physician Assistant Medical
DX: I25.709 Atherosclerosis of coronary artery bypass graft(s), unspecified, with unspecified angina pectoris (principal); I65.23 Occlusion and stenosis of bilateral carotid arteries; I10 Essential (primary) hypertension; I49.3 Ventricular premature depolarization; E78.5 Hyperlipidemia, unspecified
CPT/HCPCS: 78452; 93017; A9500; A4216; J2785

== ENCOUNTER → 2022-02-07 | Outpatient (CLI) | payer MEDICARE, BC, SELFPAY | END | disposition home or self-care (01) | LOC: PSN 09:04 | PROVIDERS: PCP Family Medicine; Referring Provider Physician Assistant Medical; Visit Provider Physician Assistant Medical | DX: I49.3 Ventricular premature depolarization (principal) | CPT/HCPCS: 93225; 93226 ==

== ENCOUNTER → 2022-03-26 | Outpatient (CLI) | payer MEDICARE, BC, SELFPAY | END | disposition home or self-care (01) | LOC: PSN 08:30 | PROVIDERS: PCP Family Medicine; Referring Provider Physician Assistant Medical; Visit Provider Physician Assistant Medical | DX: I49.3 Ventricular premature depolarization (principal) | CPT/HCPCS: 93225; 93226 ==

== ENCOUNTER → 2022-06-03 | Outpatient (CLI) | payer MEDICARE, BC, SELFPAY ==
[2022-06-03 13:04] LABS: AST(SGOT) 35 U/L (15-37); Alanine Aminotransfer ALT/SGPT 45 U/L (16-61); Albumin, Serum 3.4 g/dL (3.2-5.0); Alkaline Phosphatase 73 U/L (45-117); Bilirubin, Direct 0.27 mg/dL (0.00-0.30); Cholesterol 158 mg/dL (200); Globulin 3.8 g/dL (2.2-4.2); High Density Lipoprotein 67 mg/dL; Protein, Total 7.2 g/dL (6.4-8.2); Triglycerides 62 mg/dL; Very Low Density Lipoprotein 12 mg/dL (5-40)
== END | disposition home or self-care (01) ==
LOC: LAB 11:56
PROVIDERS: Internal Medicine Cardiovascular Disease; PCP Family Medicine; Referring Provider Urology; Visit Provider Urology
DX: C61 Malignant neoplasm of prostate (principal); E78.5 Hyperlipidemia, unspecified
CPT/HCPCS: 36415; 80061; 80076; 84153

== ENCOUNTER 2022-08-08 08:10 | Emergency (ER) | payer MEDICARE, BC, SELFPAY ==
[2022-08-08] VITALS (7 sets, daily range): BP systolic 122–146; BP diastolic 50–75; PULSE 38–82; RESP 14–16; TEMP 36.5; O2SAT 97–99; BMI 10.1
--- NOTE | 2022-08-08 08:35 | RAD_ITS ---
STUDY: X-RAY CHEST REASON FOR EXAM: Male, 86 years old. Chest pain TECHNIQUE: Single AP portable view of the chest. COMPARISON: Comparison is made with prior study dated 02/24/2019. FINDINGS: EKG lines are seen. Hyperinflation. Scattered calcified granulomas. There is no demonstrated pleural abnormality. Sternal cerclage wires and vascular clips are present from a prior sternotomy and coronary artery bypass graft procedure (CABG). Normal mediastinum and jesus. Normal visualized pulmonary arteries. There is atherosclerotic calcification of the aortic arch with tortuosity. There are degenerative changes of the visualized thoracic spine. Mild dextroscoliosis. Normal visualized ribs, clavicles, and shoulders. There is no demonstrated abnormality of the visualized soft tissue structures of the upper abdomen. RAD/Chest 1 View (Portable) IMPRESSION: Hyperinflation. The lungs are clear. Electronically Signed: Joe Palomares MD at 9:03 EST ,
--- NOTE | 2022-08-08 08:45 | EKG12_ITS ---
Test Reason : CP Blood Pressure : / mmHG Vent. Rate : 078 BPM Atrial Rate : 078 BPM P-R Int : 132 ms QRS Dur : 086 ms QT Int : 392 ms P-R-T Axes : 064 052 066 degrees QTc Int : 446 ms Sinus rhythm with frequent Premature ventricular complexes Nonspecific ST abnormality Abnormal ECG Confirmed by TEE MELENDEZ, JUDY ([id number]), editor producer JULIO MUNOZ ([id number]) on 08/09/2022 12:42:56 PM Referred By: RONY Confirmed By:JUDY OLIVEIRA MD
[2022-08-08] MEDS: Aspirin 81 MG TAB.CHEW 324 MG PO (08:50)
[2022-08-08 08:57] LABS: Absolute Lymphocyte Count 2.36 X10^3/uL (0.83-4.51); Absolute Neutrophil Count 4.3 X10^3/uL (2.0-7.7); Basophil# 0.05 X10^3/uL; Basophil% 0.7 % (0-1); Eosinophil# 0.14 X10^3/uL; Eosinophils% 1.9 % (0-5); Hematocrit 41.7 % (40-54); Hemoglobin 13.7 g/dL (13.0-16.5); Lymphocyte # 2.36 X10^3/ul (0.83-4.51); Mean Corp Hgb Conc 32.9 g/dL (32-36); Mean Corpuscular Hgb 31.3 pg (27.0-32.0); Mean Corpuscular Volume 95.2 fL (80-94); Mean Platelet Vol. 9.6 fl (6.2-12.0); Monocyte# 0.52 X10^3/uL; Monocyte% 7.1 % (0-10); NRBC Flagged by Analyzer 0 % (0-5); Neutrophil # 4.27 X10^3/uL (2.7-7.7); Neutrophil % 57.9 % (47-70); Platelet Count 243 K/mm3 (150-450); RBC Distribution Width CV 12.8 % (11.6-14.6); RBC Distribution Width SD 44.8 fl (35.1-43.9); Red Blood Count 4.38 M/mm3 (4.6-6.2); White Blood Count 7.4 K/mm3 (4.4-11.0)
[2022-08-08 09:10] LABS: Anion Gap 6 (5-15); BUN 25 mg/dL (7-18); BUN/Creat Ratio 23.4 RATIO (10-20); Calcium,Total 9.6 mg/dL (8.5-10.1); Chloride 103 mmol/L (98-107); Creatinine, Serum 1.07 mg/dL (0.70-1.30); EST Glomerular Filtration Rate 70 mL/min (>60); Est Glom Filt Rate - Afr Amer 85 mL/min (>60); Estimated Creatinine Clearance 22.09 ml/min; Glucose 116 mg/dL (74-106); Sodium Level 138 mmol/L (136-145); Troponin-I HS (w/2H Reflex) 8 pg/mL (3.0-78.0)
[2022-08-08 09:24] LABS: D-Dimer Quantitative (DVT/PE) 5.48 FEU/ug/m (0.27-0.49)
--- NOTE | 2022-08-08 09:31 | CT_ITS ---
STUDY: CTA CHEST REASON FOR EXAM: Male, 86 years old. Elevated D-dimer. History of prostate cancer. Esophageal stricture. RADIATION DOSAGE (If Supplied By Facility): CTDIvol = ( 7.68 ) mGy, DLP = ( 214.32 ) mGycm TECHNIQUE: The examination was performed with the intravenous administration of IV 100mL Isovue-370. Post-processing of the angiographic images was performed, with multiplanar reformation and 3D reconstruction. Individualized dose optimization techniques were used for this CT. COMPARISON: None. FINDINGS: Normal enhancement of the main pulmonary artery and right and left pulmonary arteries. Normal enhancement of the bilateral peripheral pulmonary arteries. There is no demonstrated pulmonary embolism. There is atherosclerotic calcification of the aortic arch with tortuosity. There is no demonstrated aortic dissection. Sternal cerclage wires and vascular clips are present from a prior sternotomy and coronary artery bypass graft procedure (CABG). There are calcifications of the coronary arteries. Normal mediastinum. Calcified left hilar lymph nodes. Normal visualized trachea and bronchi. The lungs are well expanded. Calcified granuloma in the lateral aspect of the right middle lobe. Mild increased markings in the posterior medial aspect of the left lower lobe suggestive of a scarring. Normal pleura. Normal chest wall structures. There are degenerative changes of thoracic spine. Small hiatal hernia with thickening of the wall. CT/CTA Chest W/WO Contrast IMPRESSION: No evidence of pulmonary embolism. Mild degree of scarring in the posterior segment of the left lower lobe. Electronically Signed: Joe Palomares MD at 10:27 EST ,
--- NOTE | 2022-08-08 09:59 | ED.VIS.CHEST ---
HPI History of Present Illness Chief Complaint: Chest Pain Informant: patient Onset/Context/Timing Onset: Today Activity at onset: sudden Timing: Continuous Quality: Positive for Sharp Location: Left Chest and - (Left scapula) Worsened By: Breathing (Deep breathing) Relieved By: Nothing Associated Symptoms: Negative for Nausea, Vomiting, Diaphoresis, Dyspnea, Cough, Fever, Lightheadedness, Acid Reflux or Palpitations Narrative Narrative: Patient presents with chest pain that began approximately 3 hours prior to arrival. Patient states he woke up with the pain. Patient states the pain is sharp. Patient states pain is over the left side of his chest. Patient states the pain is worse with deep breathing. Patient states nothing seems to help with his pain. Patient denies any nausea or vomiting. Patient denies any cough or shortness of breath. Patient denies any palpitations. Patient states his pain does radiate into his back to his left scapular area. CVD Risk Factors: Positive for Hypertension and Hypercholesterolemia; Negative for Diabetes, Family History 1' </=55 or Smoking PE Risk Factors: Positive for Cancer; Negative for Recent Travel/Surgery, Recent Immobilization, Prior DVT or PE or OCP + Smoking + >/=35 [facility] Medical History Arthritis Atherosclerosis of coronary artery bypass graft of [place] heart with angina pectoris Bilateral carotid artery stenosis Cancer Difficulty swallowing Essential (primary) hypertension Glaucoma High cholesterol History of edema History of esophageal stricture History of heart attack History of hiatal hernia History of irregular heartbeat History of stress test Hyperlipidemia Injury of back Non-smoker Premature ventricular contractions Prostate cancer Prostate disease Secondary pulmonary arterial hypertension Stenosis of left carotid artery Wears dentures Wears glasses Wears partial dentures Home Medications ascorbic acid (vitamin C) 500 mg tablet 500 mg PO DAILY@0800 04/09/15 [History Last Taken 03/27/17] cod liver oil 1 ea PO DAILY 04/09/15 [History Last Taken 03/27/17] glucosamine mensah dipot-chond mensah sod-C-Mn 500 mg-400 mg-66 mg-3 mg cap 1 ea PO DAILY 04/09/15 [History Last Taken 03/27/17] tamsulosin 0.4 mg capsule 0.4 cap PO QHS 04/09/15 [History Last Taken 03/27/17] aspirin 81 mg chewable tablet 81 mg PO QHS 04/11/15 [History Last Taken 03/01/19] amlodipine 5 mg tablet 5 mg PO DAILY 02/16/19 [History Last Taken 03/01/19] rosuvastatin 10 mg tablet 10 mg PO QWEEK #14 tabs 09/14/19 [Rx Last Taken Unknown] nitroglycerin 0.4 mg sublingual tablet 0.4 mg sublingual Q5-15M PRN Chest Pain 10/23/20 [History Last Taken 08/08/22] Handicap placard #1 ea 08/31/21 [Rx Last Taken Unknown] hydrochlorothiazide 25 mg tablet 25 mg PO 4XW 08/31/21 [History Last Taken Unknown] flaxseed oil 1,000 mg capsule 1,000 mg PO DAILY 12/25/21 [History Last Taken Unknown] jupygcx-uycovagof-jdeu 333 mg-133 mg-5 mg tablet tab PO 03/05/22 [History Last Taken Unknown] cholecalciferol (vitamin D3) 25 mcg (1,000 unit) tablet 25 mcg PO DAILY 03/05/22 [History Last Taken Unknown] coenzyme Q10 200 mg capsule 200 mg PO DAILY 03/05/22 [History Last Taken Unknown] cyanocobalamin (vitamin B-12) 500 mcg tablet (Vitamin B-12) 500 mcg PO DAILY 03/05/22 [History Last Taken Unknown] multivitamin 1 tab PO DAILY 03/05/22 [History Last Taken Unknown] omega-3 fatty acids 1,000 mg capsule 1,000 mg PO DAILY 03/05/22 [History Last Taken Unknown] omeprazole 20 mg capsule,delayed release 20 mg PO DAILY 03/05/22 [History Last Taken Unknown] pyridoxine (vitamin B6) 100 mg tablet 100 mg PO DAILY 03/05/22 [History Last Taken Unknown] saw palmetto 450 mg capsule 450 mg PO DAILY 03/05/22 [History Last Taken Unknown] sour adrian extract 1,000 mg capsule (Tart Adrian Extract) mg PO 03/05/22 [History Last Taken Unknown] vitamin E (dl, acetate) 180 mg (400 unit) capsule 180 mg PO DAILY 03/05/22 [History Last Taken Unknown] lisinopril 20 mg tablet 20 mg PO DAILY #90 tabs 05/06/22 [Rx Last Taken Unknown] amiodarone 200 mg tablet 100 mg PO DAILY #90 tabs 07/24/22 [Rx Last Taken Unknown] metoprolol succinate 25 mg tablet,extended release 24 hr (Toprol XL) 25 mg PO DAILY 08/08/22 [History Last Taken Unknown] Allergy/AdvReac Type Severity Reaction Status Date / Time codeine AdvReac Unknown Verified 03/05/22 14:36 Ltkkvob-SAN-ZvG Reductase AdvReac myalgias Verified 03/05/22 14:36 Inhibitor [Sfhtuee-Lip-Tqj Reductase Inhibitor] Family History Brother Cancer prostate Diabetes Heart disease Daughter Breast cancer Father Heart disease Mother Cancer skin Hypertension Sister Cancer lung Hypertension Surgical History H/O coronary artery bypass surgery (11/09/02) History of coronary artery stent placement (07/22/12) History of esophageal dilatation History of esophagogastroduodenoscopy (EGD) (~10/2020) History of left heart catheterization (03/01/19) History of spinal fusion Social History Smoking Status: Never smoker alcohol intake: never substance use type: does not use caffeine: No ROS ROS ED Constitutional Constitutional ED: Denies chills or fever(s) Eyes Eyes: Denies blurry vision or change in vision ENT ENT ED: Denies rhinorrhea or sore throat Cardiovascular Cardiovascular: Reports chest pain; Denies palpitations Respiratory/Chest Respiratory/Chest: Denies cough or dyspnea Gastrointestinal Gastrointestinal: Denies abdominal pain, nausea or vomiting Genitourinary Genitourinary ED: Denies dysuria or hematuria Musculoskeletal Musculoskeletal: Reports back pain; Denies neck pain Integumentary Denies abscess or rash Neurologic Neurologic: Denies headache(s) or weakness Allergic/Immunologic Allergic/Immunologic ED: Denies mouth swelling or urticaria EXAM Physical Exam Const Vital Signs: 08/08/22 08:11 08/08/22 08:18 08/08/22 08:19 Temperature 97.7 F L Temperature Source Temporal Pulse Rate 38 L 82 Respiratory Rate 16 15 Respiratory Effort Normal Non-Labored Blood Pressure 146/65 H Blood Pressure Mean 92 Pulse Ox 99 99 Oxygen Delivery Method Room Air Room Air 08/08/22 08:47 08/08/22 09:16 08/08/22 10:14 Temperature Temperature Source Pulse Rate 65 60 Respiratory Rate 16 16 Respiratory Effort Blood Pressure 122/75 H 129/50 H Blood Pressure Mean 90 76 Pulse Ox 97 98 98 Oxygen Delivery Method Room Air Room Air Room Air 08/08/22 11:07 Temperature Temperature Source Pulse Rate 58 L Respiratory Rate 16 Respiratory Effort Blood Pressure 122/58 H Blood Pressure Mean 79 Pulse Ox 97 Oxygen Delivery Method Room Air Positive well nourished and well developed General Appearance ED: well developed and NAD HEENT normocephalic and atraumatic Eyes PERRL and EOMs intact bilaterally Neck supple and no JVD Chest Wall palpation of chest normal Resp normal respiratory effort and clear to auscultation bilaterally Effort and Inspection: Negative for respiratory distress Cardio regular rate, regular rhythm and no murmurs GI normal to inspection, nondistended, normoactive bowel sounds, soft to palpation, non-tender and non-distended Extremity normal to inspection General Extremety ED: Negative for edema or tenderness General Extremity: Negative for edema Neuro oriented x3, CN's II-XII intact bilaterally and no sensory deficits noted Sensorium / Orientation: awake and alert Motor Exam: strength 5/5 throughout Psych mental status grossly normal Heart Score History: Slightly/Non-Suspicious ECG: Nonspecific Repolarization Age: >/= 65 years Risk Factors: 1 or 2 Risk Factors Troponin: </= Normal Limit Score: 4 MDM MDM MDM Narrative Medical decision making narrative: Differential diagnosis includes cardiac ischemia, cardiac dysrhythmia, pulmonary embolism, pneumonia, pneumothorax, and gastroesophageal reflux disease. CBC will be obtained to assess for anemia and leukocytosis. Basic metabolic profile will be obtained to assess for renal function and electrolyte abnormality. High-sensitivity troponin will be obtained to assess for cardiac ischemia. D-dimer will be obtained to assess for pulmonary embolism. EKG will be obtained to assess for cardiac ischemia and cardiac dysrhythmia. Chest x-ray will be obtained to assess for pneumonia and congestive heart failure. Lab Data Lab results narrative: CBC was reviewed and was within normal limits. Basic metabolic profile was reviewed and was within normal limits. High-sensitivity troponin was reviewed and was normal at 8. D-dimer was reviewed and was elevated at 5.48. Labs: Laboratory Results - last 24 hr 08/08/22 08/08/22 08/08/22 08:20 08:20 08:20 WBC 7.4 RBC 4.38 L Hgb 13.7 Hct 41.7 MCV 95.2 H MCH 31.3 MCHC 32.9 RDW Std Deviation 44.8 H RDW Coeff of Susan 12.8 Plt Count 243 MPV 9.6 Immature Gran % (Auto) 0.400 Neut % (Auto) 57.9 Lymph % (Auto) 32.0 [place] % (Auto) 7.1 Eos % (Auto) 1.9 Baso % (Auto) 0.7 Absolute Neuts (auto) 4.3 Absolute Lymphs (auto) 2.36 Nucleated RBC % 0 D-Dimer Quant (PE/DVT) 5.48 H* Sodium 138 Potassium 4.0 Chloride 103 Carbon Dioxide 29.0 Anion Gap 6 BUN 25 H Creatinine 1.07 Estim Creat Clear Calc 22.09 Est GFR (MDRD) Af Amer 85 Est GFR (MDRD) Non-Af 70 BUN/Creatinine Ratio 23.4 H Glucose 116 H Calcium 9.6 Troponin I High Sens 8 08/08/22 11:00 WBC RBC Hgb Hct MCV MCH MCHC RDW Std Deviation RDW Coeff of Susan Plt Count MPV Immature Gran % (Auto) Neut % (Auto) Lymph % (Auto) [place] % (Auto) Eos % (Auto) Baso % (Auto) Absolute Neuts (auto) Absolute Lymphs (auto) Nucleated RBC % D-Dimer Quant (PE/DVT) Sodium Potassium Chloride Carbon Dioxide Anion Gap BUN Creatinine Estim Creat Clear Calc Est GFR (MDRD) Af Amer Est GFR (MDRD) Non-Af BUN/Creatinine Ratio Glucose Calcium Troponin I High Sens 8 Radiography Diagnostic Testing: Clinical Impression(s) from Imaging Studies Chest X-Ray 08/08/22 08:35 IMPRESSION: Hyperinflation. The lungs are clear. Electronically Signed: Joe Palomares MD at 9:03 EST , Chest CTA 08/08/22 09:31 IMPRESSION: No evidence of pulmonary embolism. Mild degree of scarring in the posterior segment of the left lower lobe. Electronically Signed: Joe Palomares MD at 10:27 EST , Portable 1 view chest x-ray was obtained. On my independent interpretation, lung pérez are clear. There is normal cardiac silhouette. Bony thorax is normal. There is no acute process noted. Radiologist also interpreted the x-ray and agrees. Because of the elevated D-dimer, CTA of the chest was obtained. There is no evidence of pulmonary embolism or aortic dissection. There is mild degree of scarring in the posterior segment of the left lower lobe. This was interpreted by the radiologist and was also independently reviewed by myself. EKG Initial EKG: Attestation: I personally reviewed and interpreted this EKG as follows: Interpretation: Sinus Rhythm (With frequent PVCs with a rate of 78) and Non-Specific ST Changes Comments: EKG was obtained. On my interpretation, there is a normal sinus rhythm with frequent premature ventricular contractions with a rate of 78. MO interval was within normal limits. QRS interval was normal. QTc interval was normal. There are nonspecific ST-T wave changes. Prior EKG tracings: available for review Prior: Unchanged (03/28/2017) Treatment and Re-Evaluation Narrative: Patient was advised of his findings. Patient has a HEART score of 4. Prior records were reviewed. Patient had a normal stress test done in January of last year. Given his normal recent stress test and 2 troponins which were normal, I feel the patient is safe to be discharged home. 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 Patient understands and was agreeable with the plan. All questions were answered. Discharge Plan Triage Chief Complaint: Chest Pain ED Provider: Devon Gross Dx/Rx/DC Orders Clinical Impression: Chest pain, Essential (primary) hypertension Instructions: ED Chest Pain, Uncertain Cause Prescriptions: No Action amlodipine 5 mg tablet 5 mg PO DAILY rosuvastatin 10 mg tablet 10 mg PO QWEEK Qty: 14 4RF nitroglycerin 0.4 mg tablet, sublingual 0.4 mg sublingual Q5-15M PRN (Reason: Chest Pain) Rx Instructions: do not exceed 3 doses per episode hydrochlorothiazide 25 mg tablet 25 mg PO 4XW Label Comments: blood pressure (DME) Handicap placard See Rx Instructions .Route .MEDSUPPLY Qty: 1 0RF Rx Instructions: lifetime multivitamin Tablet 1 tab PO DAILY omega-3 fatty acids 1,000 mg capsule 1,000 mg PO DAILY cyanocobalamin (vitamin B-12) [Vitamin B-12] 500 mcg tablet 500 mcg PO DAILY omeprazole 20 mg capsule,delayed release(DR/EC) 20 mg PO DAILY Label Comments: TAKE 1 CAPSULE BY MOUTH EVERY DAY pyridoxine (vitamin B6) 100 mg tablet 100 mg PO DAILY gjqeicy-yqbyrbfty-zyji 333-133-5 mg tablet PO coenzyme Q10 200 mg capsule 200 mg PO DAILY saw palmetto 450 mg capsule 450 mg PO DAILY Rx Instructions: give with food (meal/snack) cholecalciferol (vitamin D3) 25 mcg (1,000 unit) tablet 25 mcg PO DAILY vitamin E (dl, acetate) 180 mg (400 unit) capsule 180 mg PO DAILY Tart Adrian Extract 1,000 mg capsule PO flaxseed oil 1,000 mg capsule 1,000 mg PO DAILY Rx Instructions: administer with a meal cod liver oil 1 EACH capsule 1 ea PO DAILY Label Comments: supplement ascorbic acid (vitamin C) 500 MG tablet 500 mg PO DAILY@0800 Label Comments: supplement tamsulosin 0.4 MG capsule 0.4 cap PO QHS Label Comments: prostate/ urination glucosam mensah aae-ylegdxjbe-E-Mn 1 EACH capsule 1 ea PO DAILY Label Comments: bone supplement aspirin 81 MG tablet,chewable 81 mg PO QHS Label Comments: instructed by Dr Garcia to stop on 11/24 metoprolol succinate [Toprol XL] 25 mg Tablet Extended Release 24 Hr 25 mg PO DAILY lisinopril 20 mg tablet 20 mg PO DAILY Qty: 90 3RF amiodarone 200 mg tablet 100 mg PO DAILY Qty: 90 3RF Primary Care Provider: Aries Chaudhary Referrals: Dakota Correa MD [Med Staff - Active Staff] - 3-5 Days Aries Chaudhary MD [Primary Care Provider] - 3-5 Days Disposition Disposition: Home, Self Care
[2022-08-08 10:50] LABS: Reflex Troponin-HS? (from REC) Y
[2022-08-08 11:26] LABS: Troponin-I HS 8 pg/mL (3.0-78.0)
== END 2022-08-08 12:05 | disposition home or self-care (01) ==
PROVIDERS: Emergency Provider Emergency Medicine; PCP Family Medicine; Visit Provider Emergency Medicine
DX: R07.9 Chest pain, unspecified (principal); I10 Essential (primary) hypertension; I25.10 Atherosclerotic heart disease of native coronary artery without angina pectoris; I25.2 Old myocardial infarction; Z95.1 Presence of aortocoronary bypass graft; Z95.5 Presence of coronary angioplasty implant and graft
CPT/HCPCS: 71045; 71275; 80048; 84484; 85025; 85379; 93005; 99284; Q9967; A4216

== ENCOUNTER → 2022-10-03 | Outpatient (CLI) | payer MEDICARE, BC, SELFPAY | END | disposition home or self-care (01) | LOC: LAB 10:10 | PROVIDERS: PCP Family Medicine; Referring Provider Urology; Visit Provider Urology | DX: C61 Malignant neoplasm of prostate (principal) | CPT/HCPCS: 36415; 84153 ==

== ENCOUNTER → 2022-12-19 | Outpatient (CLI) | payer MEDICARE, BC, SELFPAY ==
--- NOTE | 2022-12-19 09:50 | CDU_ITS ---
Reason For Study: Lt Carotid Stenosis Rt. Velocities/BP Lt. Velocities/BP Prox CCA 75.5/12.2 cm/sec. Prox CCA 112.5/15.7 cm/sec. Mid CCA 90.6/13.9 cm/sec. Mid CCA 103.4/17.5 cm/sec. Dist CCA 92.4/17.5 cm/sec. Dist CCA 72.3/15.7 cm/sec. Prox ICA 94.2/21.2 cm/sec. Prox ICA 143.6/44.9 cm/sec. Mid ICA 62.2/22.6 cm/sec. Mid ICA 79.8/27.0 cm/sec. Dist ICA 74.3/27.0 cm/sec. Dist ICA 73.2/23.7 cm/sec. Rt. ICA/CCA = 1.0. Lt. ICA/CCA = 1.4. Prox ECA 114.3 cm/sec. Prox ECA 130.8/4.7 cm/sec. Rt. Vert. 36.7/11.8 cm/sec. Lt. Vert. 49.0/14.9 cm/sec. Right Extracranial There is intimal thickening but no significant atherosclerotic plaque noted in the right common carotid artery. There is heterogeneous, irregular atherosclerotic plaque noted in the right internal carotid artery. There is intimal thickening but no significant atherosclerotic plaque noted in the right external carotid artery. Antegrade flow is noted in the right vertebral artery. Left Extracranial There is intimal thickening but no significant atherosclerotic plaque noted in the left common carotid artery. There is heterogeneous, irregular atherosclerotic plaque noted in the left internal carotid artery. There is intimal thickening but no significant atherosclerotic plaque noted in the left external carotid artery. Antegrade flow is noted in the left vertebral artery. Procedure Carotid Duplex [id number]. This is a Carotid Duplex examination using B-mode, color flow and specral Doppler. The exam was diagnostic. Exam performed in department. VL/Carotid Duplex Ultrasound Interpretation Summary Irregular calcific plaque at the proximal right internal carotid artery with le ss than 50% stenosis Less than 50% stenosis right external carotid artery Irregular calcific plaque at the proximal left internal carotid artery with 50 to 69% stenosis Less than 50% stenosis left external carotid artery Patent antegrade vertebral arteries bilaterally No change from the previous examination of December 06, 2021 Ordering Physician: Dom Garcia MD Referring Physician: Dom Garcia Performed By: Danny Arnold RVT
== END | disposition home or self-care (01) ==
LOC: CVS 09:50
PROVIDERS: PCP Family Medicine; Referring Provider Surgery; Visit Provider Surgery
DX: I65.22 Occlusion and stenosis of left carotid artery (principal)
CPT/HCPCS: 93880

== ENCOUNTER → 2023-01-06 | Outpatient (CLI) | payer MEDICARE, BC, SELFPAY ==
[2023-01-06 14:52] LABS: PSA,Total- Diagnostic 0.42 ng/mL (0.0-4.0)
== END | disposition home or self-care (01) ==
LOC: LAB 13:34
PROVIDERS: PCP Family Medicine; Referring Provider Registered Nurse; Visit Provider Registered Nurse
DX: C61 Malignant neoplasm of prostate (principal)
CPT/HCPCS: 36415; 84153

== ENCOUNTER → 2023-07-10 | Outpatient (CLI) | payer MEDICARE, BC, SELFPAY ==
--- OUTSIDE RECORDS SUMMARY | 2023-07-10 11:25 | XMS RPT_ITS | CCD ---
Author Name Unknown Address [address] [place] [address] Organization [facility] Care Team Providers Care Gift Basket Packer Name Role Phone ESTEFANIA FERGUSON Unavailable Unavailable ARIES CHAUDHARY Unavailable Unavailable ESTEFANIA FERGUSON Unavailable Unavailable ARIES CHAUDHARY Unavailable Unavailable ESTEFANIA FERGUSON Unavailable Unavailable Radha, Aries Unavailable Unavailable OBIE FERGUSONNETH Unavailable Unavailable [employer], Aries Unavailable Unavailable [employer], Aries Unavailable Unavailable MARTY ESTEFANIA Unavailable Unavailable OBIE FERGUSONNETH Unavailable Unavailable [employer], Aries Unavailable Unavailable Aries Chaudhary MD Primary Care Provider Aries Chaudhary MD Primary Care Provider Aries Chaudhary MD Primary Care Provider RADHA, ARIES Primary Care Unavailable BRIAN COY Attending Unavailable RADHA, ARIES Primary Care Unavailable SCOTT APARICIO Referring Unavailable RADHA, ARIES Primary Care Unavailable ASHLI APARICIOLEY Referring Unavailable JESSIEBK Attending Unavailable RADHA, ARIES Primary Care Unavailable APARICIO, SCOTT Referring Unavailable JESSIE, BK Attending Unavailable RADHA, ARIES Primary Care Unavailable APARICIO, SCOTT Referring Unavailable JESSIE, BK Attending Unavailable APARICIO SCOTT Referring Unavailable JESSIE, BK Attending Unavailable RADHA, ARIES Primary Care Unavailable RADHA, ARIES Primary Care Unavailable APARICIO, SCOTT Referring Unavailable JESSIE, BK Attending Unavailable APARICIO, SCOTT Referring Unavailable JESSIE, BK Attending Unavailable RADHA, ARIES Primary Care Unavailable RAHDA, ARIES Primary Care Unavailable APARICIO, SCOTT Attending Unavailable APARICIO, SCOTT Referring Unavailable RADHA, ARIES Primary Care Unavailable APARICIO, SCOTT Referring Unavailable JESSIE, BK Attending Unavailable RADHA, ARIES Primary Care Unavailable JESSIE, BK Attending Unavailable APARICIO, SCOTT Referring Unavailable RADHA, ARIES Primary Care Unavailable APARICIO, SCOTT Referring Unavailable JESSIE, BK Attending Unavailable RADHA, ARIES Primary Care Unavailable APARICIO, SCOTT Referring Unavailable BK ROMAN Attending Unavailable RADHA, ARIES Primary Care Unavailable SCOTT APARICIO Referring Unavailable BK ROMAN Attending Unavailable SCOTT APARICIO Referring Unavailable RADHA, ARIES Primary Care Unavailable BK ROMAN Attending Unavailable RADHA, ARIES Primary Care Unavailable SCOTT APARICIO Referring Unavailable BK ROMAN Attending Unavailable RADHA, ARIES Primary Care Unavailable ADRIANA GAONA Attending Unavailabl e RADHA, ARIES Primary Care Unavailable SCOTT APARICIO Attending Unavailable RADHA, ARIES Attending Unavailable RADHA, ARIES Primary Care Unavailable RADHA, ARIES Primary Care Unavailable ADRIANA GAONA Referring Unavailabl e TASIA GAONA II Attending Unavailabl e RADHA, ARIES Primary Care Unavailable SCOTT APARICIO Attending Unavailable RADHA, ARIES Primary Care Unavailable William ZABALA Attending Unavailable RADHA, ARIES Primary Care Unavailable VETOVITZ, KANDY Referring Unavailable VETOHUMA, KANDY Attending Unavailable RADHA, ARIES Primary Care Unavailable VETOVITZ, KANDY Referring Unavailable VETOVITZ, KANDY Attending Unavailable SCOTT APARICIO Attending Unavailable SCOTT APARICIO Referring Unavailable RADHA, ARIES Primary Care Unavailable RADHA, ARIES Referring Unavailable RADHA, ARIES Primary Care Unavailable RADHA, ARIES Attending Unavailable RADHA, [facility] Primary Care Unavailable Allergies Allergy Classification Reported Allergen(s) Allergy Type Date of Onset Reaction(s) Facility (20 sources) codeine; Translations: [CODEINE] Drug Allergy 05-16-2005 [facility] Repository Medications Current Medications Medication Drug Class(es) Dates Sig (Normalized) Sig (Original) benoxinate hydrochloride 4 mg/ml / fluorescein sodium 2.5 mg/ml ophthalmic solution (1 source) Diagnostic Dye Start: 02-05-2023 End: 02-05-2023 fluorescein-benox inate 0.25-0.4 % 1 Drop (FLURESS) clindamycin 150 mg oral capsule (3 sources) Lincosamide Antibacterial Start: 09-10-2022 End: 09-20-2022 take 1 capsule by mouth four times daily clindamycin (CLEOCIN) 150 mg capsule Indications: Cat scratch , Cellulitis of skin Take 1 capsule by mouth four times daily for 10 days. 40 capsule 0 09/10/2022 09/20/2022 Active Completed/Discontinued Medications Medication Drug Class(es) Dates Sig (Normalized) Sig (Original) amiodarone hydrochloride 200 mg oral tablet (20 sources) Antiarrhythmic Start: 06-24-2022 amiodarone (PACERONE) 200 mg tablet Take 100 mg by mouth once daily. 0 06/24/2022 Active Problems Active Problems Problem Classification Problem Date Documented Date Episodic/Chronic Cancer of prostate (20 sources) Malignant tumor of prostate; Translations: [Malignant neoplasm of prostate] Onset: 12-26-2006 06-11-2021 Chronic Cardiac dysrhythmias (20 sources) Cardiac arrhythmia, unspecified; Translations: [Ventricular premature beats] Onset: 09-10-2013 09-10-2013 Chronic Cataract (20 sources) Senile cataract; Translations: [Other age-related cataract] Onset: 07-28-2014 11-04-2016 Chronic Coagulation and hemorrhagic disorders (2 sources) Thrombocytopenic disorder; Translations: [Thrombocytopenia, unspecified] Onset: 09-10-2022 Chronic Coronary atherosclerosis and other heart disease (20 sources) Atherosclerotic heart disease of [place] coronary artery without angina pectoris; Translations: [Coronary atherosclerosis] Onset: 05-16-2005 12-31-2017 Chronic Delirium, dementia, and amnestic and other cognitive disorders (20 sources) Primary degenerative dementia of the Alzheimer type, senile onset; Translations: [Alzheimer's disease with late onset] Onset: 10-23-2021 Chronic Diseases of mouth; excluding dental (1 source) Glossitis; Translations: [Glossitis] Onset: 05-06-2023 Episodic Disorders of lipid metabolism (20 sources) Hyperlipidemia; Translations: [Hyperlipidemia, unspecified] Onset: 05-16-2005 08-25-2015 Chronic Esophageal disorders (20 sources) Gastroesophageal reflux disease; Translations: [Gastro-esophageal reflux disease without esophagitis] 08-16-2014 Chronic Essential hypertension (20 sources) Essential (primary) hypertension; Translations: [Essential hypertension] Onset: 03-21-2016 03-21-2016 Chronic Glaucoma (20 sources) 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; Translations: [Anatomical narrow angle, bilateral] Onset: 07-28-2014 11-04-2016 Chronic Hyperplasia of prostate (4 sources) Benign prostatic hypertrophy with outflow obstruction; Translations: [Benign prostatic hyperplasia with lower urinary tract symptoms] Chronic Occlusion or stenosis of precerebral arteries (20 sources) Asymptomatic carotid artery stenosis; Translations: [Occlusion and stenosis of unspecified carotid artery] Onset: 10-21-2012 02-25-2020 Chronic Osteoarthritis (20 sources) Osteoarthritis; Translations: [Osteoarthrosis, unspecified whether generalized or localized, lower leg] Onset: 09-11-2010 09-11-2010 Chronic Other aftercare (1 source) Patient encounter status; Translations: [Encounter for therapeutic drug level monitoring] Episodic Other and unspecified benign neoplasm (20 sources) History of polyp of colon; Translations: [Personal history of colonic polyps] 08-16-2014 Episodic Other endocrine disorders (20 sources) Hypoglycemia; Translations: [Hypoglycemia, unspecified] 05-16-2005 Chronic Other hereditary and degenerative nervous system conditions (1 source) Impaired cognition; Translations: [Mild cognitive impairment, so stated] Chronic Other male genital disorders (4 sources) Hypertrophy of testis; Translations: [Other noninflammatory disorders of the testis] Episodic Other nervous system disorders (2 sources) Other chronic pain; Translations: [Elbow pain, chronic, right] Onset: 08-16-2022 Chronic Other non-traumatic joint disorders (1 source) Pain in right elbow; Translations: [Elbow pain, chronic, right] Onset: 05-06-2023 Episodic Other upper respiratory disease (20 sources) Chronic rhinitis; Translations: [Chronic rhinitis] Onset: 02-12-2010 02-12-2010 Chronic Residual codes; unclassified (20 sources) Insomnia co-occurrent and due to medical condition; Translations: [Insomnia due to medical condition] Onset: 05-16-2005 05-16-2005 Chronic Retinal detachments; defects; vascular occlusion; and retinopathy (20 sources) Bilateral age-related nonexudative macular degeneration; Translations: [Nonexudative age-related macular degeneration, bilateral, stage unspecified] Onset: 11-04-2016 11-04-2016 Chronic Spondylosis; intervertebral disc disorders; other back problems (20 sources) Degeneration of cervical intervertebral disc; Translations: [Other cervical disc degeneration, unspecified cervical region] Onset: 06-15-2013 06-15-2013 Chronic Unclassified (1 source) Unknown / UNK(Unknown) Onset: 04-08-2017 Unclassified (1 source) PT Onset: 09-16-2022 Past or Other Problems Problem Classification Problem Date Documented Da te Episodic/Chronic Blindness and vision defects (20 sources) Hypermetropia; Translations: [Hypermetropia, unspecified eye] Onset: 07-28-2014 07-28-2014 Episodic Cardiac dysrhythmias (20 sources) Bradycardia; Translations: [Bradycardia, unspecified] Onset: 08-10-2022 Episodic Coronary atherosclerosis and other heart disease (20 sources) Patient post percutaneous transluminal coronary angioplasty; Translations: [Coronary angioplasty status] Onset: 08-17-2009 08-17-2009 Episodic E Codes: Natural/environment (3 sources) Cat scratch - wound; Translations: [Scratched by cat, initial encounter] Onset: 09-10-2022 Episodic Esophageal disorders (20 sources) Esophagitis; Translations: [Esophagitis, unspecified] Onset: 06-28-2010 06-28-2010 Episodic Genitourinary symptoms and ill-defined conditions (20 sources) Nocturia; Translations: [Nocturia] Onset: 05-01-2015 05-01-2015 Episodic Nonspecific chest pain (9 sources) Chest pain; Translations: [Chest pain, unspecified] Onset: 08-10-2022 Episodic Other aftercare (1 source) Encounter for therapeutic drug level monitoring; Translations: [Medication monitoring encounter] Onset: 09-10-2022 Episodic Other eye disorders (20 sources) Excess skin of eyelid; Translations: [Dermatochalasis of unspecified eye, unspecified eyelid] Onset: 07-28-2014 07-28-2014 Episodic Other gastrointestinal disorders (20 sources) Esophageal dysphagia; Translations: [Other dysphagia] Onset: 02-10-2018 02-10-2018 Episodic Other non-traumatic joint disorders (20 sources) Pain in right knee; Translations: [Pain in joint, lower leg] Onset: 08-12-2022 Episodic Other non-traumatic joint disorders (2 sources) Pain in left knee; Translations: [Chronic pain of both knees] Onset: 08-12-2022 Episodic Residual codes; unclassified (2 sources) Other general symptoms and signs; Translations: [Other general symptoms] Onset: 09-10-2022 Episodic Skin and subcutaneous tissue infections (3 sources) Cellulitis of skin; Translations: [Cellulitis, unspecified] Onset: 09-10-2022 Episodic Spondylosis; intervertebral disc disorders; other back problems (20 sources) Neck pain; Translations: [Cervicalgia] Onset: 05-26-2013 05-26-2013 Episodic Results Test Name Value Interpretation Reference Range Facil ity Vital Signs Date Time Vital Sign Value Performing Clinician Vivi morales 09-12-2022 16:36-0400 Body height 172.7 cm Aries Chaudhary MD Work Phone: [facility] 09-12-2022 16:36-0400 Body temperature 97.59 [degF] Aries Chaudhary MD Work Phone: [facility] 09-12-2022 16:36-0400 Body weight 68.49 kg Aries Chaudhary MD Work Phone: [facility] 09-12-2022 16:36-0400 Diastolic blood pressure 54 mm[Hg] Aries Chaudhary MD Work Phone: [facility] 09-12-2022 16:36-0400 Heart rate 60 /min Aries Chaudhary MD Work Phone: [facility] 09-12-2022 16:36-0400 SaO2% (BldA) [Mass fraction] 95 % Aries Chaudhary MD Work Phone: [facility] 09-12-2022 16:36-0400 Systolic blood pressure 110 mm[Hg] Aries Chaudhary MD Work Phone: [facility] 09-10-2022 14:31-0400 Body height 172.7 cm Aries Chaudhary MD Work Phone: [facility] 09-10-2022 14:31-0400 Body weight 68.49 kg Aries Chaudhary MD Work Phone: [facility] 09-10-2022 14:31-0400 Diastolic blood pressure 46 mm[Hg] Aries Chaudhary MD Work Phone: [facility] 09-10-2022 14:31-0400 Heart rate 68 /min Aries Chaudhary MD Work Phone: [facility] 09-10-2022 14:31-0400 SaO2% (BldA) [Mass fraction] 96 % Aries Chaudhary MD Work Phone: [facility] 09-10-2022 14:31-0400 Systolic blood pressure 102 mm[Hg] Aries Chaudhary MD Work Phone: [facility] 08-09-2022 14:14-0500 Body weight 66.13 kg Brian Coy DO Work Phone: [facility] 08-09-2022 14:14-0500 Diastolic blood pressure 68 mm[Hg] Brian Coy DO Work Phone: [facility] 08-09-2022 14:14-0500 Heart rate 63 /min Brian Coy DO Work Phone: [facility] 08-09-2022 14:14-0500 Respiratory rate 18 /min Brian Coy DO Work Phone: [facility] 08-09-2022 14:14-0500 SaO2% (BldA) [Mass fraction] 100 % Brian Coy DO Work Phone: [facility] 08-09-2022 14:14-0500 Systolic blood pressure 102 mm[Hg] Brian Coy DO Work Phone: [facility] 01-16-2022 09:02-0400 Body height 172.7 cm Hemalatha Baytown DO Work Phone: [facility] 01-16-2022 09:02-0400 Body temperature 97.81 [degF] Hemalatha [place] DO Work Phone: [facility] 01-16-2022 09:02-0400 Body weight 66.13 kg Hemalatha [place] DO Work Phone: [facility] 01-16-2022 09:02-0400 Diastolic blood pressure 60 mm[Hg] Hemalatha [place] DO Work Phone: [facility] 01-16-2022 09:02-0400 Heart rate 48 /min Hemalatha [place] DO Work Phone: [facility] 01-16-2022 09:02-0400 Systolic blood pressure 128 mm[Hg] Hemalatha [place] DO Work Phone: [facility] 12-21-2021 10:09-0400 Body height 172.7 cm Nurse Wstr Work Phone: [facility] 12-21-2021 10:09-0400 Body temperature 97 [degF] Nurse Wstr Work Phone: [facility] 12-21-2021 10:09-0400 Body weight 64.86 kg Nurse Wstr Work Phone: [facility] 12-21-2021 10:09-0400 Diastolic blood pressure 72 mm[Hg] Nurse Wstr Work Phone: [facility] 12-21-2021 10:09-0400 Heart rate 50 /min Nurse Wstr Work Phone: [facility] 12-21-2021 10:09-0400 Respiratory rate 14 /min Nurse Wstr Work Phone: [facility] 12-21-2021 10:09-0400 SaO2% (BldA) [Mass fraction] 99 % Nurse Wstr Work Phone: [facility] 12-21-2021 10:09-0400 Systolic blood pressure 120 mm[Hg] Nurse Wstr Work Phone: [facility] 10-23-2021 10:06-0400 Body weight 66.68 kg NA Zabala PA-C Work Phone: [facility] 10-23-2021 10:06-0400 Diastolic blood pressure 56 mm[Hg] NA Zabala PA-C Work Phone: [facility] 10-23-2021 10:06-0400 Heart rate 44 /min NA Zabala PA-C Work Phone: [facility] 10-23-2021 10:06-0400 Respiratory rate 16 /min NA Zabala PA-C Work Phone: [facility] 10-23-2021 10:06-0400 SaO2% (BldA) [Mass fraction] 96 % NA Zabala PA-C Work Phone: [facility] 10-23-2021 10:06-0400 Systolic blood pressure 108 mm[Hg] NA Zabala PA-C Work Phone: [facility] Encounters Encounter Date Encounter Type Care Provider Facility Start: 05-19-2023 End: 05-19-2023 ambulatory ARIES RADHA Facility:[facility] Start: 05-19-2023 End: 05-19-2023 Patient encounter procedure Kandy Keenan PA-C Work Phone: Orthopaedics Procedures Date Procedure Procedure Detail Performing Clinician Start: 05-19-2023 Arthrocentesis aspir &/inj major jt/bursa w/o us Kandy Keenan PA-C Work Phone: Start: 05-12-2023 Arthrocentesis aspir &/inj major jt/bursa w/o us Kandy Keenan PA-C Work Phone: Start: 05-05-2023 Arthrocentesis aspir &/inj major jt/bursa w/o us Kandy Keenan PA-C Work Phone: Start: 01-30-2023 Arthrocentesis aspir &/inj major jt/bursa w/o us Scott Aparicio MD Work Phone: Start: 10-28-2022 Arthrocentesis aspir &/inj major jt/bursa w/o us Scott Aparicio MD Work Phone: Start: 08-12-2022 End: 08-12-2022 Visual field xm uni/bi w/interp extended exam Adriana Gaona OD Work Phone: Start: 08-12-2022 Radiologic exam knee complete 4/more views Scott Aparicio MD Work Phone: Start: 05-06-2022 Arthrocentesis aspir &/inj major jt/bursa w/o us Scott Aparicio MD Work Phone: Start: 11-07-2021 Mri brain brain stem w/o contrast material William Zabala PA-C Work Phone: Start: 10-25-2021 Arthrocentesis aspir &/inj major jt/bursa w/o us Scott Aparicio MD Work Phone: Plan of Treatment Date Care Activity Detail Author Start: 04-15-2029 Urine microalbumin profile [facility] Start: 09-10-2025 [facility] Start: 09-10-2025 Diabetes Screening Diabetes Screenin g [facility] Start: 01-25-2025 OCT OPTIC NERVE CIRR US OU (BOTH EYES) OCT OPTIC NERVE CIRRUS OU (BOTH EYES) OPHT Imaging Routine 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 Expected: 01/25/2025 [facility] Work Phone: Immunizations Immunization Date Immunization Notes Care Provider Randal milan 05-10-2023 influenza (aIIV4) vaccine, age 65+ yr, quadrivalent, PF (FLUAD QUAD) Kandy Keenan PA-C Work Phone: [facility] 04-11-2022 influenza (HD-IIV4) vaccine, age 65+ yr, high dose, quadrivalent, PF (FLUZONE HIGH-DOSE) Aries Chaudhary MD Work Phone: [facility] 04-11-2022 influenza, high dose seasonal, preservative-free Scott Aparicio MD Work Phone: [facility] 04-11-2022 influenza virus vacc ine, unspecified formulation Tima David PA-C Work Phone: [facility] 03-17-2021 influenza, high-dose , quadrivalent vaccine (FLUZONE HIGH DOSE QUADRIVALENT) JAZZY Zabala PA-C Work Phone: [facility] 04-07-2020 influenza (aIIV4) vaccine, age 65+ yr, quadrivalent, PF (FLUAD QUADRIVALENT) JAZZY Zabala PA-C Work Phone: [facility] 04-28-2019 influenza, high dose seasonal, preservative-free Aries Chaudhary MD Work Phone: [facility] 04-15-2019 tetanus toxoid, redu merle diphtheria toxoid, and acellular pertussis vaccine, adsorbed Aries Chaudhary MD Work Phone: [facility] 04-13-2018 influenza, high dose seasonal, preservative-free Aries Chaudhary MD Work Phone: [facility] 07-21-2017 influenza, high dose seasonal, preservative-free Aries Chaudhary MD Work Phone: [facility] Work Phone: 03-16-2016 influenza, seasonal, injectable Aries Chaudhary MD Work Phone: [facility] 02-24-2015 pneumococcal conjuga te vaccine, 13 valent Aries Chaudhary MD Work Phone: [facility] 04-30-2011 influenza virus vacc ine, unspecified formulation Aries Chaudhary MD Work Phone: [facility] 03-22-2010 influenza virus vacc ine, unspecified formulation Aries Chaudhary MD Work Phone: [facility] 03-23-2008 influenza virus vacc ine, unspecified formulation Aries Chaudhary MD Work Phone: [facility] Work Phone: 04-28-2007 influenza virus vacc ine, whole virus Aries Chaudhary MD Work Phone: [facility] 04-16-2005 influenza virus vacc ine, whole virus Aries Chaudhary MD Work Phone: [facility] Work Phone: 09-14-2004 diphtheria and tetan us toxoids, adsorbed for pediatric use Aries Chaudhary MD Work Phone: [facility] Work Phone: 02-18-2003 pneumococcal polysaccharide vaccine, 23 valent Aries Chaudhary MD Work Phone: [facility] Work Phone: Payers Date Payer Category Payer Unknown [employer]OS [id number] 2006-Present [phone] [address] [place] [address] Indemnity [id number] 2006 Unknown [employer] OOS [id number] 2006-Present [phone] [address] [place] [address] Indemnity [id number] 2006 Unknown [id number] 2002 Medicare MEDICARE MEDICAR E A AND B [id number] 2002-Present [phone] [place] [address] Medicare [id number] 2002 Medicare MEDICARE MEDICAR E A AND B [id number] 2002-Present [phone] [place] [address] Medicare [id number] 2002 Medicare [id number] Medicare [id number] Social History Date Type Detail Facility Start: 08-09-2022 Tobacco smoking stat [facility] Never smoked tobacco [facility] Start: 05-31-2021 End: 05-19-2023 Alcohol intake Current non-drinker of alcohol (finding) [facility] Start: 1935 Sex Assigned At Not on file [facility] Start: 10-08-2021 End: 10-18-2021 Exposure to SARS-CoV-2 (event) Unable to assess [facility] Work Phone: Start: 10-15-2021 End: 05-06-2022 Exposure to SARS-CoV-2 (event) Not sure [facility] Start: 08-09-2022 Tobacco use and exposure Smokeless tobacco non-user [facility] Start: 10-28-2022 End: 02-05-2023 History of Social function [facility] Start: 10-28-2022 End: 02-05-2023 Tobacco use panel [facility] National Score (1-100), lower number is lower risk 72 [facility] Clinical Notes 05-01-2015 to 05-19-2023 Kandy Keenan PA-C - 05/19/2023 2:20 PM Janki Moreira Ma - 05/19/2023 1:31 PM Kandy Kraft PA-C - 05/12/2023 2:05 PM Tawny Valencia RN - 05/12/2023 1:37 PM EST Note Date & Type Note Facility 05-19-2023 Note HNO ID: [id number] Author: Kandy Keenan PA-C Service: ? Author Type: Physician Cascade Operator Type: Progress Notes Filed: 05/19/2023 2:21 PM Note Text: Large Joint Arthro/Inj: bilateral knee joints Informed Consent Consent Obtained: Verbal [place] Protocol A moment to CARE was completed. SIGN IN Sign in communication not applicable due to emergent procedure. Personnel directly involved with the procedure wore the appropriate PPE. Special Equipment: N/A Patient/Surrogate Stated/Verified: Patient name, Date of , Relevant allergies and Intended procedure TIME OUT Intended patient and procedure match the source document(s). Consent documented and matches the intended procedure. Relevant labs, photos, and/or imaging studies have been reviewed. Correct side/site marked and visible. Medications required for procedure verified. No fire risk assessment and interventions applicable. No implant(s) inserted. 05/19/2023 2:21 PM The procedure site was prepped in the usual sterile fashion. Site: bilateral knee joints Medications (Right): 20 mg sodium hyaluronate 10 mg/mL(mw 2.4 -3.6 million) Medications (Left): 20 mg sodium hyaluronate 10 mg/mL(mw 2.4 -3.6 million) Outcome: Tolerated well, no immediate complications Post-injection instructions were reviewed with the patient and the patient voiced understanding of these instructions. SIGN OUT All instruments, equipment, possible retained foreign bodies accounted for. [facility] 05-19-2023 Note HNO ID: [id number] Author: Janki Barber Ma Service: ? Author Type: ? Type: Progress Notes Filed: 05/19/2023 2:21 PM Note Text: AMB ROOMING INTAKE FLOWSHEET DATA Risk Screening Do you have concerns about personal safety or safety in the home?: No Patient here today for Euflexxa injection # 3 into bilateral knees. LOT # [id number] EXP 05/11/2024 Janki Barber Ma [facility] 05-19-2023 History of Present illness Narrative Associated Order(s): Large Joint Arthro/Inj: bilateral knee joints Post-Procedure Diagnose(s): Primary osteoarthritis of both knees Large Joint Arthro/Inj: bilateral knee joints Informed Consent Consent Obtained: Verbal Ruston Protocol A moment to CARE was completed. SIGN IN Sign in communication not applicable due to emergent procedure. Personnel directly involved with the procedure wore the appropriate PPE. Special Equipment: N/A Patient/Surrogate Stated/Verified: Patient name, Date of , Relevant allergies and Intended procedure TIME OUT Intended patient and procedure match the source document(s). Consent documented and matches the intended procedure. Relevant labs, photos, and/or imaging studies have been reviewed. Correct side/site marked and visible. Medications required for procedure verified. No fire risk assessment and interventions applicable. No implant(s) inserted. 05/19/2023 2:21 PM The procedure site was prepped in the usual sterile fashion. Site: bilateral knee joints Medications (Right): 20 mg sodium hyaluronate 10 mg/mL(mw 2.4 -3.6 million) Medications (Left): 20 mg sodium hyaluronate 10 mg/mL(mw 2.4 -3.6 million) Outcome: Tolerated well, no immediate complications Post-injection instructions were reviewed with the patient and the patient voiced understanding of these instructions. SIGN OUT All instruments, equipment, possible retained foreign bodies accounted for. AMB ROOMING INTAKE FLOWSHEET DATA Risk Screening Do you have concerns about personal safety or safety in the home?: No Patient here today for Euflexxa injection # 3 into bilateral knees. LOT # [id number] EXP 05/11/2024 Janki Barber Ma documented in this encounter [facility] 05-12-2023 Note HNO ID: [id number] Author: Kandy eKenan PA-C Service: ? Author Type: Physician Cascade Operator Type: Progress Notes Filed: 05/12/2023 2:05 PM Note Text: Large Joint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 PHYSICAL THERAPY TREATMENT NOTE ASSESSMENT: Ronald Myles tolerated the session with expected muscle soreness. He demonstrated good form with all therapeutic exercises. The patient will continue to benefit from ongoing skilled physical therapy to progress toward set goals. 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 This week he has noticed the most improvement in the knee so far. Pain: Pain Pain Level: ( Very little ) Pain Location: Knee - Right Pain Level 2: ( Very little ) Pain Location 2: Knee - Left OBJECTIVE MEASURES WITH LEVEL OF FUNCTION: Larger GTB vended TREATMENT: Therapeutic Exercise: 1: Mini squat 2 x 10 2: Hip abd BLE GTB 3 x 10 3: Hip ADD GTB 3 x 10 BLE 4: Supine SLR 3# 2 x 10 each leg 5: SciFit x 4 min (HEP discussed) Skilled Intervention: Patient was educated in proper exercise technique and purpose for exercises. Correct performance of therapeutic exercises was facilitated with verbal cuing. Billing Therapeutic Exercise Treatment Minutes: 45 Total Treatment Time Minutes (timed/untimed): 45 Bk Roman PT documented in this encounter [facility] 10-14-2022 Note HNO ID: [id number] Author: Bk Roman PT Service: ? Author Type: Physical Therapist Type: Progress Notes Filed: 10/14/2022 1:34 PM Note Text: Episode Visit Count: 9 Therapist That Will Accept/Oversee The Plan Of Care: Bk Roman Start of Care Date: 08/16/22 Onset Date: 08/16/21 Plan of Care Certification Date: 10/14/22 Next Certification Due Date: 11/18/22 Patient Identified by Name and Date of : Yes REHABILITATION AND SPORTS THERAPY PHYSICAL THERAPY PROGRESS REPORT PLAN OF CARE UPDATE: Assessment: Ronald Myles demonstrates difficulty with LE strength and improvements in rising from a chair, walking, and stair negotiation. He has progressed toward goals. Patient continues to present with impairments in independence in exercise and overall function that interfere with nothing . Current prognosis is Good due to: current objective clinical presentation, good overall health status . He will benefit from continued skilled therapy services to meet the updated goals for this plan of care as noted below. Goals updated 10/14/2022 Goals for Episode of Care: created on 08/16/22 through 10/11/22 Pt will demo 10 STS score with 30 sec STS test - MET [place] in home exercise program. - Met Perform STS without pain. - MET Increased strength of BLE to 5/5 for ease of transfers - Progressing, will continue Pt will achieve overall improvement in symptoms by 70% in 4 weeks (NEW) - MET Patient Goals: Decrease knee pain Patient Goals: Decrease knee pain Planned Interventions, Frequency, and Duration: 1x/week, 4 weeks Total Number of Visits Planned: 4 Patient to be seen for Therapeutic exercise (49144), Neuromuscular re-education (08766), Manual therapy (47311), Self-assisted management (20440), Patient/Family/Caregiver Education PLAN FOR NEXT VISIT: Squats, step-ups, standing hip abd. SUBJECTIVE: Patient Reason for Visit: Pt is doing well. Did have a heavy door hit the L knee and there was some catching there. Pt is sure this will improve. HEP going well. Feels about 70% improved overall. Would like to continue 1x/week for 1 month for PT. Patient Goals: Decrease knee pain Functional Limitations: nothing Prior Level of Function: Independent without limitations Intake Information: Prescription present Pain: Pain Pain Location: Knee - Right Pain Location 2: Knee - Left PROMIS Scales T-scores: mean of general population = 50. 5 points is clinically meaningfully difference Percentiles provide an indication of how the patient's score ranks in relation to the general population. Higher percentile rankings indicate better function/quality of life. 50th percentile is the average of the general population and indicates half of respondents had a worse score. OBJECTIVE MEASURES WITH LEVEL OF FUNCTION: LE AROM R Knee Extension: 2 Degrees R Knee Flexion: 125 Degrees L Knee Extension: 3 Degrees L Knee Flexion: 125 Degrees LE Strength R Hip Extension: 4-/5 R Hip Flexion (L2): 5/5 R Hip External Rotation: 4+/5 R Knee Extension (L3): 5/5 L Hip Flexion (L2): 5/5 L Hip External Rotation: 4+/5 L Knee Extension (L3): 5/5 Functional Performance Test Results 30 Second Chair Stand Test: 10 reps TREATMENT: Therapeutic Exercise: 1: SciFit x 5 min (Discussed HEP and subjective taken at this time) 2: All objective measures taken this session 3: Supine SLR 3# 2 x 10 each leg 4: Wall slides 2 x 10 reps 5: Hip ADD GTB 2 x 10 each leg 6: Hip abd GTB 2 x 10 reps each leg Skilled Intervention: Patient was educated in proper exercise technique and purpose for exercises. Provided written instruction for home exercise program to facilitate proper performance and compliance. Correct performance of therapeutic exercises was facilitated with verbal and visual cuing. Billing Therapeutic Exercise Treatment Minutes: 42 Total Treatment Time Minutes (timed/untimed): 42 Bk Roman PT [facility] 10-14-2022 History of Present illness Narrative Episode Visit Count: 9 Therapist That Will Accept/Oversee The Plan Of Care: Bk Roman Start of Care Date: 08/16/22 Onset Date: 08/16/21 Plan of Care Certification Date: 10/14/22 Next Certification Due Date: 11/18/22 Patient Identified by Name and Date of : Yes REHABILITATION AND SPORTS THERAPY PHYSICAL THERAPY PROGRESS REPORT PLAN OF CARE UPDATE: Assessment: Ronald Myles demonstrates difficulty with LE strength and improvements in rising from a chair, walking, and stair negotiation. He has progressed toward goals. Patient continues to present with impairments in independence in exercise and overall function that interfere with nothing . Current prognosis is Good due to: current objective clinical presentation, good overall health status . He will benefit from continued skilled therapy services to meet the updated goals for this plan of care as noted below. Goals updated 10/14/2022 Goals for Episode of Care: created on 08/16/22 through 10/11/22 Pt will demo 10 STS score with 30 sec STS test - MET [place] in home exercise program. - Met Perform STS without pain. - MET Increased strength of BLE to 5/5 for ease of transfers - Progressing, will continue Pt will achieve overall improvement in symptoms by 70% in 4 weeks (NEW) - MET Patient Goals: Decrease knee pain Patient Goals: Decrease knee pain Planned Interventions, Frequency, and Duration: 1x/week, 4 weeks Total Number of Visits Planned: 4 Patient to be seen for Therapeutic exercise (53004), Neuromuscular re-education (03111), Manual therapy (48466), Self-assisted management (53517), Patient/Family/Caregiver Education PLAN FOR NEXT VISIT: Squats, step-ups, standing hip abd. SUBJECTIVE: Patient Reason for Visit: Pt is doing well. Did have a heavy door hit the L knee and there was some catching there. Pt is sure this will improve. HEP going well. Feels about 70% improved overall. Would like to continue 1x/week for 1 month for PT. Patient Goals: Decrease knee pain Functional Limitations: nothing Prior Level of Function: Independent without limitations Intake Information: Prescription present Pain: Pain Pain Location: Knee - Right Pain Location 2: Knee - Left PROMIS Scales T-scores: mean of general population = 50. 5 points is clinically meaningfully difference Percentiles provide an indication of how the patient's score ranks in relation to the general population. Higher percentile rankings indicate better function/quality of life. 50th percentile is the average of the general population and indicates half of respondents had a worse score. OBJECTIVE MEASURES WITH LEVEL OF FUNCTION: LE AROM R Knee Extension: 2 Degrees R Knee Flexion: 125 Degrees L Knee Extension: 3 Degrees L Knee Flexion: 125 Degrees LE Strength R Hip Extension: 4-/5 R Hip Flexion (L2): 5/5 R Hip External Rotation: 4+/5 R Knee Extension (L3): 5/5 L Hip Flexion (L2): 5/5 L Hip External Rotation: 4+/5 L Knee Extension (L3): 5/5 Functional Performance Test Results 30 Second Chair Stand Test: 10 reps TREATMENT: Therapeutic Exercise: 1: SciFit x 5 min (Discussed HEP and subjective taken at this time) 2: All objective measures taken this session 3: Supine SLR 3# 2 x 10 each leg 4: Wall slides 2 x 10 reps 5: Hip ADD GTB 2 x 10 each leg 6: Hip abd GTB 2 x 10 reps each leg Skilled Intervention: Patient was educated in proper exercise technique and purpose for exercises. Provided written instruction for home exercise program to facilitate proper performance and compliance. Correct performance of therapeutic exercises was facilitated with verbal and visual cuing. Billing Therapeutic Exercise Treatment Minutes: 42 Total Treatment Time Minutes (timed/untimed): 42 Bk Roman PT documented in this encounter [facility] 10-08-2022 Note HNO ID: [id number] Author: Bk Roman PT Service: ? Author Type: Physical Therapist Type: Progress Notes Filed: 10/08/2022 10:58 AM Note Text: Episode Visit Count: 8 Therapist That Will Accept/Oversee The Plan Of Care: Bk Roman Start of Care Date: 08/16/22 Onset Date: 08/16/21 Plan of Care Certification Date: 09/16/22 Next Certification Due Date: 10/21/22 Patient Identified by Name and Date of : Yes REHABILITATION AND SPORTS THERAPY PHYSICAL THERAPY TREATMENT NOTE ASSESSMENT: Ronald Myles tolerated the session with no issues. He demonstrated good form with therapeutic exercises. The patient will continue to benefit from ongoing skilled physical therapy to progress toward set goals. PLAN FOR NEXT VISIT: LE strengthening a tolerated SUBJECTIVE: Patient Reason for Visit: Doing well. It has been a good week. Minimal knee pain. Pain: Pain Pain Level: 3 Pain Location: Knee - Right Pain Level 2: 3 Pain Location 2: Knee - Left OBJECTIVE MEASURES WITH LEVEL OF FUNCTION: TREATMENT: Therapeutic Exercise: 1: SciFit x 5 min (Discussed HEP and subjective taken. Working on end range knee flexion) 2: Wall slides 2 x 12 3: 6 F step-ups 2 x 10 each leg 4: Supine SLR 2# 2 x 12 reps each leg 6: Seated hip ADD iso into ball 2 x 20 reps holding 3 sec each Skilled Intervention: Patient was educated in proper exercise technique and purpose for exercises. Correct performance of therapeutic exercises was facilitated with verbal and visual cuing. Billing Therapeutic Exercise Treatment Minutes: 40 Total Treatment Time Minutes (timed/untimed): 40 Bk Roman PT [facility] 10-08-2022 History of Present illness Narrative Episode Visit Count: 8 Therapist That Will Accept/Oversee The Plan Of Care: Bk Roman Start of Care Date: 08/16/22 Onset Date: 08/16/21 Plan of Care Certification Date: 09/16/22 Next Certification Due Date: 10/21/22 Patient Identified by Name and Date of : Yes REHABILITATION AND SPORTS THERAPY PHYSICAL THERAPY TREATMENT NOTE ASSESSMENT: Ronald Myles tolerated the session with no issues. He demonstrated good form with therapeutic exercises. The patient will continue to benefit from ongoing skilled physical therapy to progress toward set goals. PLAN FOR NEXT VISIT: LE strengthening a tolerated SUBJECTIVE: Patient Reason for Visit: Doing well. It has been a good week. Minimal knee pain. Pain: Pain Pain Level: 3 Pain Location: Knee - Right Pain Level 2: 3 Pain Location 2: Knee - Left OBJECTIVE MEASURES WITH LEVEL OF FUNCTION: TREATMENT: Therapeutic Exercise: 1: SciFit x 5 min (Discussed HEP and subjective taken. Working on end range knee flexion) 2: Wall slides 2 x 12 3: 6 F step-ups 2 x 10 each leg 4: Supine SLR 2# 2 x 12 reps each leg 6: Seated hip ADD iso into ball 2 x 20 reps holding 3 sec each Skilled Intervention: Patient was educated in proper exercise technique and purpose for exercises. Correct performance of therapeutic exercises was facilitated with verbal and visual cuing. Billing Therapeutic Exercise Treatment Minutes: 40 Total Treatment Time Minutes (timed/untimed): 40 Bk Roman PT documented in this encounter [facility] 10-01-2022 Note HNO ID: [id number] Author: Bk Roman PT Service: ? Author Type: Physical Therapist Type: Progress Notes Filed: 10/01/2022 6:57 PM Note Text: Episode Visit Count: 7 Therapist That Will Accept/Oversee The Plan Of Care: Bk Roman Start of Care Date: 08/16/22 Onset Date: 08/16/21 Plan of Care Certification Date: 09/16/22 Next Certification Due Date: 10/21/22 Patient Identified by Name and Date of : Yes REHABILITATION AND SPORTS THERAPY PHYSICAL THERAPY TREATMENT NOTE ASSESSMENT: Ronald Myles tolerated the session well. He demonstrated some slight pain with step-up exercise in the L knee. The patient will continue to benefit from ongoing skilled physical therapy to progress toward set goals. PLAN FOR NEXT VISIT: Progress gluteals/quads SUBJECTIVE: Patient Reason for Visit: The knees are slowly getting better over time. Pain: Pain Pain Location: Knee - Right Pain Location 2: Knee - Left OBJECTIVE MEASURES WITH LEVEL OF FUNCTION: TREATMENT: Therapeutic Exercise: 1: SciFit x 4 min (Discussed HEP and subjective taken at this time) 2: *Wall slides 2 x 12 (modified height) 3: *4# AW bilat with 6 F step-ups 2 x 8 each leg 4: Supine SLR x 10 each leg 6: Seated hip ADD iso into ball 2 x 20 reps holding 3 sec each Skilled Intervention: Patient was educated in proper exercise technique and purpose for exercises. Correct performance of therapeutic exercises was facilitated with verbal and visual cuing. Billing Therapeutic Exercise Treatment Minutes: 40 Total Treatment Time Minutes (timed/untimed): 40 Bk Roman PT [facility] 10-01-2022 History of Present illness Narrative Episode Visit Count: 7 Therapist That Will Accept/Oversee The Plan Of Care: Bk Roman Start of Care Date: 08/16/22 Onset Date: 08/16/21 Plan of Care Certification Date: 09/16/22 Next Certification Due Date: 10/21/22 Patient Identified by Name and Date of : Yes REHABILITATION AND SPORTS THERAPY PHYSICAL THERAPY TREATMENT NOTE ASSESSMENT: Ronald Myles tolerated the session well. He demonstrated some slight pain with step-up exercise in the L knee. The patient will continue to benefit from ongoing skilled physical therapy to progress toward set goals. PLAN FOR NEXT VISIT: Progress gluteals/quads SUBJECTIVE: Patient Reason for Visit: The knees are slowly getting better over time. Pain: Pain Pain Location: Knee - Right Pain Location 2: Knee - Left OBJECTIVE MEASURES WITH LEVEL OF FUNCTION: TREATMENT: Therapeutic Exercise: 1: SciFit x 4 min (Discussed HEP and subjective taken at this time) 2: *Wall slides 2 x 12 (modified height) 3: *4# AW bilat with 6 F step-ups 2 x 8 each leg 4: Supine SLR x 10 each leg 6: Seated hip ADD iso into ball 2 x 20 reps holding 3 sec each Skilled Intervention: Patient was educated in proper exercise technique and purpose for exercises. Correct performance of therapeutic exercises was facilitated with verbal and visual cuing. Billing Therapeutic Exercise Treatment Minutes: 40 Total Treatment Time Minutes (timed/untimed): 40 Bk Roman PT documented in this encounter [facility] 09-24-2022 Note HNO ID: [id number] Author: Bk Roman PT Service: ? Author Type: Physical Therapist Type: Progress Notes Filed: 09/24/2022 10:57 AM Note Text: Episode Visit Count: 6 Therapist That Will Accept/Oversee The Plan Of Care: Bk Roman Start of Care Date: 08/16/22 Onset Date: 08/16/21 Plan of Care Certification Date: 09/16/22 Next Certification Due Date: 10/21/22 Patient Identified by Name and Date of : Yes REHABILITATION AND SPORTS THERAPY PHYSICAL THERAPY TREATMENT NOTE ASSESSMENT: Ronald Myles tolerated the session with no issues. He demonstrated good tolerance to all therapeutic exercises. The patient will continue to benefit from ongoing skilled physical therapy to progress toward set goals. PLAN FOR NEXT VISIT: Glute/quad strengthening SUBJECTIVE: Patient Reason for Visit: Weather seems to make the knees feel worse. He has heard that weather can affect arthritic pain. Pain: Pain Pain Location: Knee - Right Pain Location 2: Knee - Left OBJECTIVE MEASURES WITH LEVEL OF FUNCTION: Decreased control with LLE on eccentric phase of hip abd exercise TREATMENT: Therapeutic Exercise: 1: SciFit x 4 min (working on knee ROM and subjective taken at this time) 2: Squat 2 x 10 (Discussed proper form and use visual demo) 3: *Standing hip abd GTB at ankles 3 x 10 each side (More challenge with LLE abducting due to increased weakness) 5: Seated HS stretch 3 x 30 sec 6: *Seated hip ADD iso into ball 2 x 20 reps holding 3 sec each Skilled Intervention: Patient was educated in proper exercise technique and purpose for exercises. Correct performance of therapeutic exercises was facilitated with verbal cuing. Billing Therapeutic Exercise Treatment Minutes: 42 Total Treatment Time Minutes (timed/untimed): 42 Bk Roman PT [facility] 09-24-2022 History of Present illness Narrative Episode Visit Count: 6 Therapist That Will Accept/Oversee The Plan Of Care: Bk Roman Start of Care Date: 08/16/22 Onset Date: 08/16/21 Plan of Care Certification Date: 09/16/22 Next Certification Due Date: 10/21/22 Patient Identified by Name and Date of : Yes REHABILITATION AND SPORTS THERAPY PHYSICAL THERAPY TREATMENT NOTE ASSESSMENT: Ronald Myles tolerated the session with no issues. He demonstrated good tolerance to all therapeutic exercises. The patient will continue to benefit from ongoing skilled physical therapy to progress toward set goals. PLAN FOR NEXT VISIT: Glute/quad strengthening SUBJECTIVE: Patient Reason for Visit: Weather seems to make the knees feel worse. He has heard that weather can affect arthritic pain. Pain: Pain Pain Location: Knee - Right Pain Location 2: Knee - Left OBJECTIVE MEASURES WITH LEVEL OF FUNCTION: Decreased control with LLE on eccentric phase of hip abd exercise TREATMENT: Therapeutic Exercise: 1: SciFit x 4 min (working on knee ROM and subjective taken at this time) 2: Squat 2 x 10 (Discussed proper form and use visual demo) 3: *Standing hip abd GTB at ankles 3 x 10 each side (More challenge with LLE abducting due to increased weakness) 5: Seated HS stretch 3 x 30 sec 6: *Seated hip ADD iso into ball 2 x 20 reps holding 3 sec each Skilled Intervention: Patient was educated in proper exercise technique and purpose for exercises. Correct performance of therapeutic exercises was facilitated with verbal cuing. Billing Therapeutic Exercise Treatment Minutes: 42 Total Treatment Time Minutes (timed/untimed): 42 Bk Roman PT documented in this encounter [facility] 09-16-2022 Note HNO ID: [id number] Author: Bk Roman PT Service: ? Author Type: Physical Therapist Type: Progress Notes Filed: 09/16/2022 3:30 PM Note Text: Episode Visit Count: 5 Therapist That Will Accept/Oversee The Plan Of Care: Bk Roman Start of Care Date: 08/16/22 Onset Date: 08/16/21 Plan of Care Certification Date: 09/16/22 Next Certification Due Date: 10/21/22 Patient Identified by Name and Date of : Yes REHABILITATION AND SPORTS THERAPY PHYSICAL THERAPY PROGRESS REPORT PLAN OF CARE UPDATE: Assessment: Ronald Myles demonstrates difficulty with continued pain in the knees with stair negotiation and decreased LE strength and improvements in rising from a chair. He has progressed toward goals. Patient continues to present with impairments in ADL's, independence in exercise, and strength that interfere with stair negotiation . Current prognosis is Good due to: current objective clinical presentation, good overall health status . He will benefit from continued skilled therapy services to meet the updated goals for this plan of care as noted below. Goals updated 09/16/2022 Goals for Episode of Care: created on 08/16/22 through 10/11/22 Pt will demo 10 STS score with 30 sec STS test - MET [place] in home exercise program. - Met Perform STS without pain. - MET Increased strength of BLE to 5/5 for ease of transfers - Progressing, will continue Pt will achieve overall improvement in symptoms by 70% in 4 weeks (NEW) (currently at 40%) Patient Goals: Decrease knee pain Patient Goals: Decrease knee pain Planned Interventions, Frequency, and Duration: 1x/week, 4 weeks Total Number of Visits Planned: 4 Patient to be seen for Therapeutic exercise (27296), Neuromuscular re-education (90223), Manual therapy (56043), Self-assisted management (81827), Patient/Family/Caregiver Education PLAN FOR NEXT VISIT: Trial squats SUBJECTIVE: Patient Reason for Visit: Had a lot of pain in the R LB after doing the hip abduction raising the leg too high caused the back pain. Pt feels that he is 30-40% improved overall. No catching in the knees lately. Getting up out of a chair is easier. Sometimes pain with stairs. Would like to continue with PT. Patient Goals: Decrease knee pain Functional Limitations: stair negotiation Prior Level of Function: Independent without limitations Intake Information: Prescription present Previous Treatment: Pain meds Falls Interview: No positive findings with falls interview Pain: Pain Pain Level: 1 Pain Location: Knee - Right Pain Level 2: 1 Pain Location 2: Knee - Left PROMIS Scales T-scores: mean of general population = 50. 5 points is clinically meaningfully difference Percentiles provide an indication of how the patient's score ranks in relation to the general population. Higher percentile rankings indicate better function/quality of life. 50th percentile is the average of the general population and indicates half of respondents had a worse score. OBJECTIVE MEASURES WITH LEVEL OF FUNCTION: LE AROM R Knee Extension: 2 Degrees R Knee Flexion: 125 Degrees L Knee Extension: 3 Degrees L Knee Flexion: 125 Degrees LE Flexibility Flexibility: Hamstring Flexibility R Hamstring Flexibility: Min tightness L Hamstring Flexibility: Min tightness LE Strength R Hip Flexion (L2): 4+/5 R Hip ABduction: 3+/5 R Hip External Rotation: 4/5 R Knee Extension (L3): 4+/5 R Ankle Dorsiflexion (L4): 5/5 L Hip Flexion (L2): 4+/5 L Hip ABduction: 3+/5 L Knee Extension (L3): 4/5 L Ankle Dorsiflexion (L4): 5/5 Gait Gait: Independent Gait Distance (feet): 50 Gait Device: None General Deviations/Observations: Wide base of support Functional Performance Test Results 30 Second Chair Stand Test: 10 reps TREATMENT: Therapeutic Exercise: 1: All objective measures taken this session 2: *Knee flexion on 2nd step x 10 each leg 3: STS holding 7# MB at chest x 10 reps 4: Sidelying hip abduction x 10 reps each leg 5: *Seated HS stretch 3 x 30 sec Skilled Intervention: Patient was educated in proper exercise technique and purpose for exercises. Correct performance of therapeutic exercises was facilitated with verbal and visual cuing. Billing Therapeutic Exercise Treatment Minutes: 40 Total Treatment Time Minutes (timed/untimed): 40 Bk Roman PT [facility] 09-16-2022 History of Present illness Narrative Episode Visit Count: 5 Therapist That Will Accept/Oversee The Plan Of Care: Bk Roman Start of Care Date: 08/16/22 Onset Date: 08/16/21 Plan of Care Certification Date: 09/16/22 Next Certification Due Date: 10/21/22 Patient Identified by Name and Date of : Yes REHABILITATION AND SPORTS THERAPY PHYSICAL THERAPY PROGRESS REPORT PLAN OF CARE UPDATE: Assessment: Ronald Myles demonstrates difficulty with continued pain in the knees with stair negotiation and decreased LE strength and improvements in rising from a chair. He has progressed toward goals. Patient continues to present with impairments in ADL's, independence in exercise, and strength that interfere with stair negotiation . Current prognosis is Good due to: current objective clinical presentation, good overall health status . He will benefit from continued skilled therapy services to meet the updated goals for this plan of care as noted below. Goals updated 09/16/2022 Goals for Episode of Care: created on 08/16/22 through 10/11/22 Pt will demo 10 STS score with 30 sec STS test - MET [place] in home exercise program. - Met Perform STS without pain. - MET Increased strength of BLE to 5/5 for ease of transfers - Progressing, will continue Pt will achieve overall improvement in symptoms by 70% in 4 weeks (NEW) (currently at 40%) Patient Goals: Decrease knee pain Patient Goals: Decrease knee pain Planned Interventions, Frequency, and Duration: 1x/week, 4 weeks Total Number of Visits Planned: 4 Patient to be seen for Therapeutic exercise (18982),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 4 Pain Location 2: Knee - Left OBJECTIVE MEASURES WITH LEVEL OF FUNCTION: R trendelenburg observed TREATMENT: Therapeutic Exercise: 1: Supine SLR 2# 2 x 12 reps each leg 2: Supine bridge 2 x 12 reps 3: STS holding 7# MB at chest 2 x 10 reps 4: *Sidelying hip abduction 2 x 10 reps Skilled Intervention: Patient was educated in proper exercise technique and purpose for exercises. Correct performance of therapeutic exercises was facilitated with verbal cuing. Manual Therapy: 1: Tibial distraction with PROM flex/ext 2 x 10 in prone position each leg Skilled Intervention: Manual skills to improve joint mobility, ROM, and decrease pain. Utilized anatomy knowledge of the therapist, and assessment of patient's response to intervention. Billing Therapeutic Exercise Treatment Minutes: 35 Manual TherapyTreatment Minutes: 8 Total Treatment Time Minutes (timed/untimed): 43 Bk Roman PT [facility] 09-02-2022 Note HNO ID: [id number] Author: Bk Roman PT Service: ? Author Type: Physical Therapist Type: Progress Notes Filed: 09/02/2022 2:27 PM Note Text: Episode Visit Count: 3 Therapist That Will Accept/Oversee The Plan Of Care: Bk Roman Start of Care Date: 08/16/22 Onset Date: 08/16/21 Plan of Care Certification Date: 08/16/22 Next Certification Due Date: 09/20/22 Patient Identified by Name and Date of : Yes REHABILITATION AND SPORTS THERAPY PHYSICAL THERAPY TREATMENT NOTE ASSESSMENT: Ronald Myles tolerated the session with no issues. He demonstrated improvements in no catching in the knees per patient report. The patient will continue to benefit from ongoing skilled physical therapy to progress toward set goals. PLAN FOR NEXT VISIT: Continue with Steps. Trial squats with sets of 12 reps. SUBJECTIVE: Patient Reason for Visit: Had to skip last week due to surgery. The exercises are going well. The knees are feeling better already. They are not locking up like they used to. Pt feels overall improved by 50% so far. Pain: Pain Pain Location: Knee - Right Pain Location 2: Knee - Left OBJECTIVE MEASURES WITH LEVEL OF FUNCTION: TREATMENT: Therapeutic Exercise: 1: SciFit (no resistance) x 5 min 2: STS 2 x 10 reps 3: 6 F step-ups LLE then RLE x 10 each 4: Supine Heel slides x 10 each 5: Supine SLR 2# B, 2 x 10 reps Skilled Intervention: Patient was educated in proper exercise technique and purpose for exercises. Correct performance of therapeutic exercises was facilitated with verbal and visual cuing. Billing Therapeutic Exercise Treatment Minutes: 40 Total Treatment Time Minutes (timed/untimed): 40 Bk Roman PT [facility] 09-02-2022 History of Present illness Narrative Episode Visit Count: 3 Therapist That Will Accept/Oversee The Plan Of Care: Bk Roman Start of Care Date: 08/16/22 Onset Date: 08/16/21 Plan of Care Certification Date: 08/16/22 Next Certification Due Date: 09/20/22 Patient Identified by Name and Date of : Yes REHABILITATION AND SPORTS THERAPY PHYSICAL THERAPY TREATMENT NOTE ASSESSMENT: Ronald Myles tolerated the session with no issues. He demonstrated improvements in no catching in the knees per patient report. The patient will continue to benefit from ongoing skilled physical therapy to progress toward set goals. PLAN FOR NEXT VISIT: Continue with Steps. Trial squats with sets of 12 reps. SUBJECTIVE: Patient Reason for Visit: Had to skip last week due to surgery. The exercises are going well. The knees are feeling better already. They are not locking up like they used to. Pt feels overall improved by 50% so far. Pain: Pain Pain Location: Knee - Right Pain Location 2: Knee - Left OBJECTIVE MEASURES WITH LEVEL OF FUNCTION: TREATMENT: Therapeutic Exercise: 1: SciFit (no resistance) x 5 min 2: STS 2 x 10 reps 3: 6 F step-ups LLE then RLE x 10 each 4: Supine Heel slides x 10 each 5: Supine SLR 2# B, 2 x 10 reps Skilled Intervention: Patient was educated in proper exercise technique and purpose for exercises. Correct performance of therapeutic exercises was facilitated with verbal and visual cuing. Billing Therapeutic Exercise Treatment Minutes: 40 Total Treatment Time Minutes (timed/untimed): 40 Bk Roman PT documented in this encounter [facility] 08-19-2022 Note HNO ID: [id number] Author: Bk Roman PT Service: ? Author Type: Physical Therapist Type: Progress Notes Filed: 08/19/2022 2:43 PM Note Text: Episode Visit Count: 2 Therapist That Will Accept/Oversee The Plan Of Care: Bk Roman Start of Care Date: 08/16/22 Onset Date: 08/16/21 Plan of Care Certification Date: 08/16/22 Next Certification Due Date: 09/20/22 Patient Identified by Name and Date of : Yes REHABILITATION AND SPORTS THERAPY PHYSICAL THERAPY TREATMENT NOTE ASSESSMENT: Ronald Myles tolerated the session with no issues. He demonstrated good tolerance to all therapeutic exercises. The patient will continue to benefit from ongoing skilled physical therapy to progress toward set goals. PLAN FOR NEXT VISIT: Progress LE strengthening as tolerated. Heel slides and Scit fit for mobility. SUBJECTIVE: Patient Reason for Visit: Pt feels the exercises are already helping him. The exercises can decrease knee stiffness. Pt states he has been doing the exercises on the floor but he is agreeable to doing them in bed. Pain: Pain Pain Location: Knee - Right Pain Location 2: Knee - Left OBJECTIVE MEASURES WITH LEVEL OF FUNCTION: TREATMENT: Therapeutic Exercise: 1: SciFit (no resistance) x 5 min (discussed HEP and subjective taken at this time) 2: Supine Heel slides x 10 each 3: Supine SLR x 10 BLE 4: Supine SLR 1# x 10 reps BLE 5: Supine bridge 2 x 10 reps 6: High perch STS 3 x 10 reps Skilled Intervention: Patient was educated in proper exercise technique and purpose for exercises. Correct performance of therapeutic exercises was facilitated with verbal and visual cuing. Billing Therapeutic Exercise Treatment Minutes: 40 Total Treatment Time Minutes (timed/untimed): 40 Bk Roman PT [facility] 08-19-2022 History of Present illness Narrative Episode Visit Count: 2 Therapist That Will Accept/Oversee The Plan Of Care: Bk Roman Start of Care Date: 08/16/22 Onset Date: 08/16/21 Plan of Care Certification Date: 08/16/22 Next Certification Due Date: 09/20/22 Patient Identified by Name and Date of : Yes REHABILITATION AND SPORTS THERAPY PHYSICAL THERAPY TREATMENT NOTE ASSESSMENT: Ronald Myles tolerated the session with no issues. He demonstrated good tolerance to all therapeutic exercises. The patient will continue to benefit from ongoing skilled physical therapy to progress toward set goals. PLAN FOR NEXT VISIT: Progress LE strengthening as tolerated. Heel slides and Scit fit for mobility. SUBJECTIVE: Patient Reason for Visit: Pt feels the exercises are already helping him. The exercises can decrease knee stiffness. Pt states he has been doing the exercises on the floor but he is agreeable to doing them in bed. Pain: Pain Pain Location: Knee - Right Pain Location 2: Knee - Left OBJECTIVE MEASURES WITH LEVEL OF FUNCTION: TREATMENT: Therapeutic Exercise: 1: SciFit (no resistance) x 5 min (discussed HEP and subjective taken at this time) 2: Supine Heel slides x 10 each 3: Supine SLR x 10 BLE 4: Supine SLR 1# x 10 reps BLE 5: Supine bridge 2 x 10 reps 6: High perch STS 3 x 10 reps Skilled Intervention: Patient was educated in proper exercise technique and purpose for exercises. Correct performance of therapeutic exercises was facilitated with verbal and visual cuing. Billing Therapeutic Exercise Treatment Minutes: 40 Total Treatment Time Minutes (timed/untimed): 40 Bk Roman PT documented in this encounter [facility] 08-16-2022 Note HNO ID: [id number] Author: Bk Roman PT Service: ? Author Type: Physical Therapist Type: Progress Notes Filed: 08/16/2022 1:01 PM Note Text: Episode Visit Count: 1 Therapist That Will Accept/Oversee The Plan Of Care: Bk Roman Start of Care Date: 08/16/22 Onset Date: 08/16/21 Plan of Care Certification Date: 08/16/22 Next Certification Due Date: 09/20/22 Patient Identified by Name and Date of : Yes REHABILITATION AND SPORTS THERAPY PHYSICAL THERAPY EVALUATION PLAN OF CARE: Assessment: Ronald Mlyes presents with chief complaint of B knee pain that interferes with stair negotiation, rising from a chair . He presents with impairments in independence in exercise, overall function, range of motion, and strength. Patient did not complete the PROMIS? (Patient Reported Outcome Measures Information System). Prognosis for therapy is Good due to: current objective clinical presentation, good overall health status . He will benefit from skilled therapy services to meet the goals established for this plan of care as noted below. Goals for Episode of Care: created on 08/16/22 through 10/11/22 Pt will demo 10 STS score with 30 sec STS test [place] in home exercise program. Perform STS without pain. Increased strength of BLE to 5/5 for ease of transfers Patient Goals: Decrease knee pain Planned Interventions, Frequency, and Duration: Current Frequency: 1x/week Duration: 4 weeks Total Number of Visits Planned: 4 Planned Treatment Interventions: Therapeutic exercise (16383), Neuromuscular re-education (99776), Manual therapy (92884), Self-assisted management (29367), Patient/Family/Caregiver Education PLAN FOR NEXT VISIT: Assess reaction to the HEP. Possibly add LAQ. mod STS Patient demonstrates good understanding of plan of care and treatment. The above goals and plan of care were discussed and agreed upon by patient/family. SUBJECTIVE: Ronald Myles is a 86 year old male seen today for Bilateral knee pain. The knees can lock up when going to stand. The L knee locks more. Uses a cane when walking longer distances. Patient Goals: Decrease knee pain Functional Limitations: stair negotiation, rising from a chair Prior Level of Function: Independent without limitations Home Environment Home Type: Multi-Level Entry To Home: Stairs, Without Rail Number Of Stairs Into Home: 1 Intake Information: Prescription present Previous Treatment: Pain meds Falls Interview: No positive findings with falls interview Pain: Pain Pain Level: 2 Pain Location: Knee - Right Description: Sharp Additional Pain Information : Location 2 Pain Level 2: 2 Pain Location 2: Knee - Left Description 2: Sharp PROMIS Scales T-scores: mean of general population = 50. 5 points is clinically meaningfully difference Percentiles provide an indication of how the patient's score ranks in relation to the general population. Higher percentile rankings indicate better function/quality of life. 50th percentile is the average of the general population and indicates half of respondents had a worse score. OBJECTIVE MEASURES WITH LEVEL OF FUNCTION: Posture / Alignment R LE Anatomical Alignment Weight-Bearing: R Genu varus L LE Anatomical Alignment Weight-Bearing: L Genu varus LE AROM R Knee Extension: 3 Degrees R Knee Flexion: 121 Degrees L Knee Extension: 4 Degrees L Knee Flexion: 121 Degrees LE Strength R Hip Extension: 3+/5 R Hip Flexion (L2): 4/5 R Knee Extension (L3): 4/5 L Hip Extension: 4/5 L Hip Flexion (L2): 4/5 L Knee Extension (L3): 4/5 Gait Gait: Independent Gait Distance (feet): 50 Gait Device: None Gait Deviations: General Deviations General Deviations/Observations: Kendy decreased, Step length decreased, Wide base of support Functional Performance Test Results 30 Second Chair Stand Test: 7 reps (Needs to use BUE) Education: Education Learning Preferences: Demonstration, Explanation, Performance, Printed Materials Barriers: None Learning/educational needs: Home exercise program, Plan of Care Education Provided: Yes, see treatment interventions for education provided Education Provided To: Patient Education Mode/Type: Demonstration, Explanation/Discussion, Literature/Printed Materials, Performance Response to Education/Teach Back: States/Identifies, Return Demonstration Knee OA Overview Class: Completed Exercise and Knee OA Class: Completed TREATMENT: PT Treatment Interventions: Therapeutic Exercise Evaluation Therapeutic Exercise: 1: Discussed therapy goals, exam findings, purpose of the HEP. Discussed Moving Smarter Class and the benefits of taking said class. Expressed the benefits of PT to improve pain and function. 2: Supine Heel slides strap assist x 10 each leg 3: Supine SLR x 10 each leg Skilled Intervention: Patient was educated in proper exercise technique and purpose for exercises. Skilled ju (more content not included)... [facility] 08-16-2022 History of Present illness Narrative Episode Visit Count: 1 Therapist That Will Accept/Oversee The Plan Of Care: Bk Roman Start of Care Date: 08/16/22 Onset Date: 08/16/21 Plan of Care Certification Date: 08/16/22 Next Certification Due Date: 09/20/22 Patient Identified by Name and Date of : Yes REHABILITATION AND SPORTS THERAPY PHYSICAL THERAPY EVALUATION PLAN OF CARE: Assessment: Ronald Myles presents with chief complaint of B knee pain that interferes with stair negotiation, rising from a chair . He presents with impairments in independence in exercise, overall function, range of motion, and strength. Patient did not complete the PROMIS (Patient Reported Outcome Measures Information System). Prognosis for therapy is Good due to: current objective clinical presentation, good overall health status . He will benefit from skilled therapy services to meet the goals established for this plan of care as noted below. Goals for Episode of Care: created on 08/16/22 through 10/11/22 Pt will demo 10 STS score with 30 sec STS test [place] in home exercise program. Perform STS without pain. Increased strength of BLE to 5/5 for ease of transfers Patient Goals: Decrease knee pain Planned Interventions, Frequency, and Duration: Current Frequency: 1x/week Duration: 4 weeks Total Number of Visits Planned: 4 Planned Treatment Interventions: Therapeutic exercise (84749), Neuromuscular re-education (38036), Manual therapy (86529), Self-assisted management (98330), Patient/Family/Caregiver Education PLAN FOR NEXT VISIT: Assess reaction to the HEP. Possibly add LAQ. mod STS Patient demonstrates good understanding of plan of care and treatment. The above goals and plan of care were discussed and agreed upon by patient/family. SUBJECTIVE: Ronald Myles is a 86 year old male seen today for Bilateral knee pain. The knees can lock up when going to stand. The L knee locks more. Uses a cane when walking longer distances. Patient Goals: Decrease knee pain Functional Limitations: stair negotiation, rising from a chair Prior Level of Function: Independent without limitations Home Environment Home Type: Multi-Level Entry To Home: Stairs, Without Rail Number Of Stairs Into Home: 1 Intake Information: Prescription present Previous Treatment: Pain meds Falls Interview: No positive findings with falls interview Pain: Pain Pain Level: 2 Pain Location: Knee - Right Description: Sharp Additional Pain Information : Location 2 Pain Level 2: 2 Pain Location 2: Knee - Left Description 2: Sharp PROMIS Scales T-scores: mean of general population = 50. 5 points is clinically meaningfully difference Percentiles provide an indication of how the patient's score ranks in relation to the general population. Higher percentile rankings indicate better function/quality of life. 50th percentile is the average of the general population and indicates half of respondents had a worse score. OBJECTIVE MEASURES WITH LEVEL OF FUNCTION: Posture / Alignment R LE Anatomical Alignment Weight-Bearing: R Genu varus L LE Anatomical Alignment Weight-Bearing: L Genu varus LE AROM R Knee Extension: 3 Degrees R Knee Flexion: 121 Degrees L Knee Extension: 4 Degrees L Knee Flexion: 121 Degrees LE Strength R Hip Extension: 3+/5 R Hip Flexion (L2): 4/5 R Knee Extension (L3): 4/5 L Hip Extension: 4/5 L Hip Flexion (L2): 4/5 L Knee Extension (L3): 4/5 Gait Gait: Independent Gait Distance (feet): 50 Gait Device: None Gait Deviations: General Deviations General Deviations/Observations: Kendy decreased, Step length decreased, Wide base of support Functional Performance Test Results 30 Second Chair Stand Test: 7 reps (Needs to use BUE) Education: Education Learning Preferences: Demonstration, Explanation, Performance, Printed Materials Barriers: None Learning/educational needs: Home exercise program, Plan of Care Education Provided: Yes, see treatment interventions for education provided Education Provided To: Patient Education Mode/Type: Demonstration, Explanation/Discussion, Literature/Printed Materials, Performance Response to Education/Teach Back: States/Identifies, Return Demonstration Knee OA Overview Class: Completed Exercise and Knee OA Class: Completed TREATMENT: PT Treatment Interventions: Therapeutic Exercise Evaluation Therapeutic Exercise: 1: Discussed therapy goals, exam findings, purpose of the HEP. Discussed Moving Smarter Class and the benefits of taking said class. Expressed the benefits of PT to improve pain and function. 2: Supine Heel slides strap assist x 10 each leg 3: Supine SLR x 10 each leg Skilled Intervention: Patient was educated in proper exercise technique and purpose for exercises. Skilled judgment was provided in selection of appropriate interventions. Provided written instruction for home exercise program to facilitate proper performance and compliance. Billing * Evaluation Low Complexity: 1 Unit Therapeutic Exercise Treatment Minutes: 23 Total Treatment Time Minutes (timed/untimed): 45 Bk Roman PT documented in this encounter [facility] 08-12-2022 Note HNO ID: [id number] Author: Adriana Gaona OD Service: ? Author Type: WIENER PACKER Type: Progress Notes Filed: 08/12/2022 3:21 PM Note Text: ASSESSMENT/PLAN: 1. Combined form of senile cataract of both eyes - ICD9: 366.19, ICD10: H25.813 (primary diagnosis) Moderate cataract in both eyes. Well tolerated at this time. Discussed possible future affect on daily activities to watch for. Monitor as instructed. 2. 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 3. Early dry stage nonexudative age-related macular degeneration of both eyes - ICD9: 362.51, ICD10: H35.3131 Recommended the use of artificial tears four times per day to maintain good vision and comfort. Discussed contacting the office if there is a change in comfort or vision. 4. Hyperopia of both eyes - ICD9: 367.0, ICD10: H52.03 5. Regular astigmatism of both eyes - ICD9: 367.21, ICD10: H52.223 6. Presbyopia - ICD9: 367.4, ICD10: H52.4 Continue to wear his glasses time buyer with the update. Return in 6 months for glaucoma work up Adriana Gaona, OD I have confirmed and edited as necessary the relevant ophthalmic history, ROS, and the neuro exam findings as obtained by others. [facility] 08-12-2022 Instructions Adriana Gaona, POONAM - 08/12/2022 2:53 PM EST ASSESSMENT/PLAN: 1. Combined form of senile cataract of both eyes - ICD9: 366.19, ICD10: H25.813 (primary diagnosis) Moderate cataract in both eyes. Well tolerated at this time. Discussed possible future affect on daily activities to watch for. Monitor as instructed. 2. 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 3. Early dry stage nonexudative age-related macular degeneration of both eyes - ICD9: 362.51, ICD10: H35.3131 Recommended the use of artificial tears four times per day to maintain good vision and comfort. Discussed contacting the office if there is a change in comfort or vision. 4. Hyperopia of both eyes - ICD9: 367.0, ICD10: H52.03 5. Regular astigmatism of both eyes - ICD9: 367.21, ICD10: H52.223 6. Presbyopia - ICD9: 367.4, ICD10: H52.4 Continue to wear his glasses time buyer with the update. Return in 6 months for glaucoma work up documented in this encounter [facility] 08-12-2022 History of Present illness Narrative ASSESSMENT/PLAN: 1. Combined form of senile cataract of both eyes - ICD9: 366.19, ICD10: H25.813 (primary diagnosis) Moderate cataract in both eyes. Well tolerated at this time. Discussed possible future affect on daily activities to watch for. Monitor as instructed. 2. 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 3. Early dry stage nonexudative age-related macular degeneration of both eyes - ICD9: 362.51, ICD10: H35.3131 Recommended the use of artificial tears four times per day to maintain good vision and comfort. Discussed contacting the office if there is a change in comfort or vision. 4. Hyperopia of both eyes - ICD9: 367.0, ICD10: H52.03 5. Regular astigmatism of both eyes - ICD9: 367.21, ICD10: H52.223 6. Presbyopia - ICD9: 367.4, ICD10: H52.4 Continue to wear his glasses time buyer with the update. Return in 6 months for glaucoma work up Adriana Gaona, OD I have confirmed and edited as necessary the relevant ophthalmic history, ROS, and the neuro exam findings as obtained by others. documented in this encounter [facility] 08-12-2022 Note Patient Outreach (GHANSHYAM STACY) RONALD MYLES ([id number]) 1935 M Date Time Provider Department 08/12/22 NO PCP NETNAV During your visit today, we recorded the following information about you: Stephania Black 08/12/2022 11:02 AM Signed [employer] [facility] NAVIGATION OUTREACH Action/[facility] [place] Support: Called pt to schedule an appt in Pain Management. Lvm for pt to call [phone] for scheduling. Patient Identified by Name and : NO Outreach Outcome/Action Unable to reach patient: Left message Did you use a PCP flex slot to schedule this appointment? No Reason for Outreach Care Gap or Scheduling/Wellness visits Payer: Payor: MEDICARE / Plan: MEDICARE A AND B / Product Type: Medicare / Care Gap Reviewed:: Specialty Scheduling Reminder: Reminder note to check Health Maintenance for items below Health Maintenance items due: FECAL OCCULT BLOOD due on 07/03/2020 ADVANCE DIRECTIVE DISCUSSION due on 06/16/2022 LDL CHOLESTEROL due on 08/31/2022 Navigation Signature: Stephania Wayne August 12, 2022 11:00 AM Allergies As of Date: 08/12/2022 Noted Allergy Reaction CODEINE 05/16/2005 Comments: facial swelling AND gi upset Date Reviewed: 08/12/2022 Reviewed by: Scott Aparicio MD - Fully Assessed Prescriptions as of 08/12/2022 - amiodarone (PACERONE) 200 mg tablet Take 100 mg by mouth once daily. - nitroglycerin sublingual (NITROQUICK) 0.4 mg SL tablet Dissolve 1 tablet under the tongue as needed. FOR CHEST PAIN. IF NO RELIEF CALL 911 - amLODIPine (NORVASC) 5 mg tablet Take 1 tablet by mouth once daily. - tamsulosin (FLOMAX) 0.4 mg TAKE 1 CAPSULE BY MOUTH EVERYDAY AT BEDTIME - hydroCHLOROthiazide (HYDRODIURIL, ESIDRIX) 25 mg tablet Take 1 tablet by mouth once daily. Sun, Tues, Thurs, Sat only - rosuvastatin (CRESTOR) 10 mg tablet Take 1 tablet by mouth one time a week. - omeprazole (PRILOSEC) 20 mg capsule Take 20 mg by mouth once daily. - lisinopril (ZESTRIL, PRINIVIL) 20 mg tablet Take 1 tablet by mouth once daily. - aspirin(ECOTRIN LOW STRENGTH 81 MG TAB) Take one(1) tablet daily. - COD LIVER OIL CAP Take one(1) tablet daily. - omega-3 fatty acids/vitamin e(FISH OIL 1,000 MG CAP) Take one(1) tablet daily. - cranberry extract(CRANBERRY 250 MG TAB) Take one(1) tablet daily. - ascorbic acid (VITAMIN C) 500 mg ORAL Tab Take one(1) tablet two(2) times daily. - multivitamin ORAL Tab Take one(1) tablet daily. - Vbddpypbfzq-Tajkipyzk-Llk C-Mn (GLUCOSAMINE CHONDROITIN SMCONC) 716-647-37-5 mg ORAL Tab Take one(1) tablet daily. Facility-Administered Medications as of 08/12/2022 - leuprolide 30 mg injection (ELIGARD) Problem List As Of Date 08/12/2022 Noted Resolved Hypertension [I10] 08/29/2016 Esophageal reflux [K21.9] HYPOGLYCEMIA NOS [E16.2] Personal history of colonic polyps [Z86.010] HLD (hyperlipidemia) [E78.5] 05/16/2005 Coronary atherosclerosis [I25.10] 05/16/2005 INSOMIA DUE TO OTHER MEDICAL COND [G47.01] 05/16/2005 Hypertrophy of prostate with urinary obstructio*06/10/2006 08/29/2016 MALIGN NEOPL PROSTATE [C61] 12/26/2006 Acute gastritis without mention of hemorrhage [*05/21/2007 08/29/2016 Elevated prostate specific antigen (PSA) [R97.2*03/14/2008 02/28/2016 Bladder neck obstruction [N32.0] 06/12/2009 08/29/2016 Postsurgical Percutaneous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 Gave info on Aricept to review. Discussed common senescent brain changes. Will work up for any metaboic issues. - MRI BRAIN WO IVCON - CBC - COMP METABOLIC PANEL - TSH BLD - VITAMIN B12 BLOOD - FOLATE SERUM - HEAVY METALS SCRN BL - SYPHILIS TOTAL W/REFLEX 35 minute visit with significant education component at least 15 minutes. 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/12/2009 017 Elevated prostate specific antigen (PSA) 008 02/28/2016 Acute gastritis without mention of hemorrhage 08/29/2016 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 08/29/2016 Hypertension 08/29/2016 documented as of this encounter (statuses as of 09/20/2021) [facility] of Past illness Narrative* Problem Noted Date Resolved Date Urinary tract infection with hematuria 5 02/28/2016 Subconjunctival hemorrhage 04/14/201502/27 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 017 Lateral epicondylitis 12/21/2010 08/16/2014 Closed fracture of upper end of tibia 08/21/2010 08/16/2014 Gross hematuria 06/04/2010 08/29/2016 Allergic rhinitis 02/05/2010 02/12/2010 Bladder neck obstruction 06/12/2009 017 Elevated prostate specific antigen (PSA) 008 02/28/2016 Acute gastritis without mention of hemorrhage 08/29/2016 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 08/29/2016 Hypertension 08/29/2016 documented as of this encounter (statuses as of 10/23/2021) [facility] of [facility] Narrative* Problem Noted Date Resolved Date Urinary tract infection with hematuria 5 02/28/2016 Subconjunctival hemorrhage 04/14/201502/27 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 017 Lateral epicondylitis 12/21/2010 08/16/2014 Closed fracture of upper end of tibia 08/21/2010 08/16/2014 Gross hematuria 06/04/2010 08/29/2016 Allergic rhinitis 02/05/2010 02/12/2010 Bladder neck obstruction 06/12/2009 017 Elevated prostate specific antigen (PSA) 008 02/28/2016 Acute gastritis without mention of hemorrhage 08/29/2016 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 08/29/2016 Hypertension 08/29/2016 documented as of this encounter (statuses as of 10/27/2021) [facility] of [facility] Narrative* Problem Noted Date Resolved Date Urinary tract infection with hematuria 5 02/28/2016 Subconjunctival hemorrhage 04/14/201502/27 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 017 Lateral epicondylitis 12/21/2010 08/16/2014 Closed fracture of upper end of tibia 08/21/2010 08/16/2014 Gross hematuria 06/04/2010 08/29/2016 Allergic rhinitis 02/05/2010 02/12/2010 Bladder neck obstruction 06/12/2009 017 Elevated prostate specific antigen (PSA) 008 02/28/2016 Acute gastritis without mention of hemorrhage 08/29/2016 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 08/29/2016 Hypertension 08/29/2016 documented as of this encounter (statuses as of 11/08/2021) [facility] of [facility] Narrative* Problem Noted Date Resolved Date Urinary tract infection with hematuria 5 02/28/2016 Subconjunctival hemorrhage 04/14/201502/27 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 017 Lateral epicondylitis 12/21/2010 08/16/2014 Closed fracture of upper end of tibia 08/21/2010 08/16/2014 Gross hematuria 06/04/2010 08/29/2016 Allergic rhinitis 02/05/2010 02/12/2010 Bladder neck obstruction 06/12/2009 017 Elevated prostate specific antigen (PSA) 008 02/28/2016 Acute gastritis without mention of hemorrhage 08/29/2016 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 08/29/2016 Hypertension 08/29/2016 documented as of this encounter (statuses as of 11/09/2021) [facility] Narrative* Problem Noted Date Resolved Date Urinary tract infection with hematuria 5 02/28/2016 Subconjunctival hemorrhage 04/14/201502/27 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 017 Lateral epicondylitis 12/21/2010 08/16/2014 Closed fracture of upper end of tibia 08/21/2010 08/16/2014 Gross hematuria 06/04/2010 08/29/2016 Allergic rhinitis 02/05/2010 02/12/2010 Bladder neck obstruction 06/12/2009 017 Elevated prostate specific antigen (PSA) 008 02/28/2016 Acute gastritis without mention of hemorrhage 08/29/2016 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 08/29/2016 Hypertension 08/29/2016 documented as of this encounter (statuses as of 11/26/2021) [facility] of [facility] Narrative* Problem Noted Date Resolved Date Urinary tract infection with hematuria 5 02/28/2016 Subconjunctival hemorrhage 04/14/201502/27 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 017 Lateral epicondylitis 12/21/2010 08/16/2014 Closed fracture of upper end of tibia 08/21/2010 08/16/2014 Gross hematuria 06/04/2010 08/29/2016 Allergic rhinitis 02/05/2010 02/12/2010 Bladder neck obstruction 06/12/2009 017 Elevated prostate specific antigen (PSA) 008 02/28/2016 Acute gastritis without mention of hemorrhage 08/29/2016 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 08/29/2016 Hypertension 08/29/2016 documented as of this encounter (statuses as of 11/26/2021) [facility] of [facility] Narrative* Problem Noted Date Resolved Date Urinary tract infection with hematuria 5 02/28/2016 Subconjunctival hemorrhage 04/14/201502/27 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 017 Lateral epicondylitis 12/21/2010 08/16/2014 Closed fracture of upper end of tibia 08/21/2010 08/16/2014 Gross hematuria 06/04/2010 08/29/2016 Allergic rhinitis 02/05/2010 02/12/2010 Bladder neck obstruction 06/12/2009 017 Elevated prostate specific antigen (PSA) 008 02/28/2016 Acute gastritis without mention of hemorrhage 08/29/2016 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 08/29/2016 Hypertension 08/29/2016 documented as of this encounter (statuses as of 12/18/2021) [facility] of [facility] Narrative* Problem Noted Date Resolved Date Urinary tract infection with hematuria 5 02/28/2016 Subconjunctival hemorrhage 04/14/201502/27 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 017 Lateral epicondylitis 12/21/2010 08/16/2014 Closed fracture of upper end of tibia 08/21/2010 08/16/2014 Gross hematuria 06/04/2010 08/29/2016 Allergic rhinitis 02/05/2010 02/12/2010 Bladder neck obstruction 06/12/2009 017 Elevated prostate specific antigen (PSA) 008 02/28/2016 Acute gastritis without mention of hemorrhage 08/29/2016 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 08/29/2016 Hypertension 08/29/2016 documented as of this encounter (statuses as of 12/21/2021) [facility] of [facility] Narrative* Problem Noted Date Resolved Date Urinary tract infection with hematuria 5 02/28/2016 Subconjunctival hemorrhage 04/14/201502/27 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 017 Lateral epicondylitis 12/21/2010 08/16/2014 Closed fracture of upper end of tibia 08/21/2010 08/16/2014 Gross hematuria 06/04/2010 08/29/2016 Allergic rhinitis 02/05/2010 02/12/2010 Bladder neck obstruction 06/12/2009 017 Elevated prostate specific antigen (PSA) 008 02/28/2016 Acute gastritis without mention of hemorrhage 08/29/2016 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 08/29/2016 Hypertension 08/29/2016 documented as of this encounter (statuses as of 01/16/2022) [facility] of [facility]arrative* Problem Noted Date Resolved Date Urinary tract infection with hematuria 5 02/28/2016 Subconjunctival hemorrhage 04/14/201502/27 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 017 Lateral epicondylitis 12/21/2010 08/16/2014 Closed fracture of upper end of tibia 08/21/2010 08/16/2014 Gross hematuria 06/04/2010 08/29/2016 Allergic rhinitis 02/05/2010 02/12/2010 Bladder neck obstruction 06/12/2009 017 Elevated prostate specific antigen (PSA) 008 02/28/2016 Acute gastritis without mention of hemorrhage 08/29/2016 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 08/29/2016 Hypertension 08/29/2016 documented as of this encounter (statuses as of 02/15/2022) [facility] of [facility] Narrative* Problem Noted Date Resolved Date Urinary tract infection with hematuria 5 02/28/2016 Subconjunctival hemorrhage 04/14/201502/27 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 017 Lateral epicondylitis 12/21/2010 08/16/2014 Closed fracture of upper end of tibia 08/21/2010 08/16/2014 Gross hematuria 06/04/2010 08/29/2016 Allergic rhinitis 02/05/2010 02/12/2010 Bladder neck obstruction 06/12/2009 017 Elevated prostate specific antigen (PSA) 008 02/28/2016 Acute gastritis without mention of hemorrhage 08/29/2016 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 08/29/2016 Hypertension 08/29/2016 documented as of this encounter (statuses as of 02/20/2022) [facility] Narrative* Problem Noted Date Resolved Date Urinary tract infection with hematuria 5 02/28/2016 Subconjunctival hemorrhage 04/14/201502/27 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 017 Lateral epicondylitis 12/21/2010 08/16/2014 Closed fracture of upper end of tibia 08/21/2010 08/16/2014 Gross hematuria 06/04/2010 08/29/2016 Allergic rhinitis 02/05/2010 02/12/2010 Bladder neck obstruction 06/12/2009 017 Elevated prostate specific antigen (PSA) 008 02/28/2016 Acute gastritis without mention of hemorrhage 08/29/2016 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 08/29/2016 Hypertension 08/29/2016 documented as of this encounter (statuses as of 02/25/2022) [facility] of [facility] Narrative* Problem Noted Date Resolved Date Urinary tract infection with hematuria 5 02/28/2016 Subconjunctival hemorrhage 04/14/201502/27 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 017 Lateral epicondylitis 12/21/2010 08/16/2014 Closed fracture of upper end of tibia 08/21/2010 08/16/2014 Gross hematuria 06/04/2010 08/29/2016 Allergic rhinitis 02/05/2010 02/12/2010 Bladder neck obstruction 06/12/2009 017 Elevated prostate specific antigen (PSA) 008 02/28/2016 Acute gastritis without mention of hemorrhage 08/29/2016 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 08/29/2016 Hypertension 08/29/2016 documented as of this encounter (statuses as of 06/02/2022) [facility] of [facility] Narrative* Problem Noted Date Resolved Date Urinary tract infection with hematuria 5 02/28/2016 Subconjunctival hemorrhage 04/14/201502/27 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 017 Lateral epicondylitis 12/21/2010 08/16/2014 Closed fracture of upper end of tibia 08/21/2010 08/16/2014 Gross hematuria 06/04/2010 08/29/2016 Allergic rhinitis 02/05/2010 02/12/2010 Bladder neck obstruction 06/12/2009 017 Elevated prostate specific antigen (PSA) 008 02/28/2016 Acute gastritis without mention of hemorrhage 08/29/2016 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 08/29/2016 Hypertension 08/29/2016 documented as of this encounter (statuses as of 07/08/2022) [facility] of [facility] Narrative* Problem Noted Date Resolved Date Urinary tract infection with hematuria 5 02/28/2016 Subconjunctival hemorrhage 04/14/201502/27 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 017 Lateral epicondylitis 12/21/2010 08/16/2014 Closed fracture of upper end of tibia 08/21/2010 08/16/2014 Gross hematuria 06/04/2010 08/29/2016 Allergic rhinitis 02/05/2010 02/12/2010 Bladder neck obstruction 06/12/2009 017 Elevated prostate specific antigen (PSA) 008 02/28/2016 Acute gastritis without mention of hemorrhage 08/29/2016 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 08/29/2016 Hypertension 08/29/2016 documented as of this encounter (statuses as of 07/11/2022) [facility] of [facility]arrative* Problem Noted Date Resolved Date Urinary tract infection with hematuria 5 02/28/2016 Subconjunctival hemorrhage 04/14/201502/27 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 017 Lateral epicondylitis 12/21/2010 08/16/2014 Closed fracture of upper end of tibia 08/21/2010 08/16/2014 Gross hematuria 06/04/2010 08/29/2016 Allergic rhinitis 02/05/2010 02/12/2010 Bladder neck obstruction 06/12/2009 017 Elevated prostate specific antigen (PSA) 008 02/28/2016 Acute gastritis without mention of hemorrhage 08/29/2016 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 08/29/2016 Hypertension 08/29/2016 documented as of this encounter (statuses as of 08/07/2022) [address]16-2015 History of Past illness Narrative* Problem Noted Date Resolved Date Urinary tract infection with hematuria 5 02/28/2016 Subconjunctival hemorrhage 04/14/201502/27 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 017 Lateral epicondylitis 12/21/2010 08/16/2014 Closed fracture of upper end of tibia 08/21/2010 08/16/2014 Gross hematuria 06/04/2010 08/29/2016 Allergic rhinitis 02/05/2010 02/12/2010 Bladder neck obstruction 06/12/2009 017 Elevated prostate specific antigen (PSA) 008 02/28/2016 Acute gastritis without mention of hemorrhage 08/29/2016 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 08/29/2016 Hypertension 08/29/2016 documented as of this encounter (statuses as of 08/10/2022) [facility] Narrative* Problem Noted Date Resolved Date Urinary tract infection with hematuria 5 02/28/2016 Subconjunctival hemorrhage 04/14/201502/27 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 017 Lateral epicondylitis 12/21/2010 08/16/2014 Closed fracture of upper end of tibia 08/21/2010 08/16/2014 Gross hematuria 06/04/2010 08/29/2016 Allergic rhinitis 02/05/2010 02/12/2010 Bladder neck obstruction 06/12/2009 017 Elevated prostate specific antigen (PSA) 008 02/28/2016 Acute gastritis without mention of hemorrhage 08/29/2016 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 08/29/2016 Hypertension 08/29/2016 documented as of this encounter (statuses as of 08/12/2022) [facility] Narrative* Problem Noted Date Resolved Date Urinary tract infection with hematuria 5 02/28/2016 Subconjunctival hemorrhage 04/14/201502/27 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 017 Lateral epicondylitis 12/21/2010 08/16/2014 Closed fracture of upper end of tibia 08/21/2010 08/16/2014 Gross hematuria 06/04/2010 08/29/2016 Allergic rhinitis 02/05/2010 02/12/2010 Bladder neck obstruction 06/12/2009 017 Elevated prostate specific antigen (PSA) 008 02/28/2016 Acute gastritis without mention of hemorrhage 08/29/2016 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 08/29/2016 Hypertension 08/29/2016 documented as of this encounter (statuses as of 08/13/2022) [facility] of [facility]arrative* Problem Noted Date Resolved Date Urinary tract infection with hematuria 5 02/28/2016 Subconjunctival hemorrhage 04/14/201502/27 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 017 Lateral epicondylitis 12/21/2010 08/16/2014 Closed fracture of upper end of tibia 08/21/2010 08/16/2014 Gross hematuria 06/04/2010 08/29/2016 Allergic rhinitis 02/05/2010 02/12/2010 Bladder neck obstruction 06/12/2009 017 Elevated prostate specific antigen (PSA) 008 02/28/2016 Acute gastritis without mention of hemorrhage 08/29/2016 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 08/29/2016 Hypertension 08/29/2016 documented as of this encounter (statuses as of 08/16/2022) [facility] of [facility]arrative* Problem Noted Date Resolved Date Urinary tract infection with hematuria 5 02/28/2016 Subconjunctival hemorrhage 04/14/201502/27 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 017 Lateral epicondylitis 12/21/2010 08/16/2014 Closed fracture of upper end of tibia 08/21/2010 08/16/2014 Gross hematuria 06/04/2010 08/29/2016 Allergic rhinitis 02/05/2010 02/12/2010 Bladder neck obstruction 06/12/2009 017 Elevated prostate specific antigen (PSA) 008 02/28/2016 Acute gastritis without mention of hemorrhage 08/29/2016 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 08/29/2016 Hypertension 08/29/2016 documented as of this encounter (statuses as of 08/19/2022) [facility] of [facility]arrative* Problem Noted Date Resolved Date Urinary tract infection with hematuria 5 02/28/2016 Subconjunctival hemorrhage 04/14/201502/27 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 017 Lateral epicondylitis 12/21/2010 08/16/2014 Closed fracture of upper end of tibia 08/21/2010 08/16/2014 Gross hematuria 06/04/2010 08/29/2016 Allergic rhinitis 02/05/2010 02/12/2010 Bladder neck obstruction 06/12/2009 017 Elevated prostate specific antigen (PSA) 008 02/28/2016 Acute gastritis without mention of hemorrhage 08/29/2016 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 08/29/2016 Hypertension 08/29/2016 documented as of this encounter (statuses as of 09/02/2022) [facility] Narrative* Problem Noted Date Resolved Date Urinary tract infection with hematuria 5 02/28/2016 Subconjunctival hemorrhage 04/14/201502/27 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 017 Lateral epicondylitis 12/21/2010 08/16/2014 Closed fracture of upper end of tibia 08/21/2010 08/16/2014 Gross hematuria 06/04/2010 08/29/2016 Allergic rhinitis 02/05/2010 02/12/2010 Bladder neck obstruction 06/12/2009 017 Elevated prostate specific antigen (PSA) 008 02/28/2016 Acute gastritis without mention of hemorrhage 08/29/2016 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 08/29/2016 Hypertension 08/29/2016 documented as of this encounter (statuses as of 09/09/2022) [facility] [place] [facility] Diagnosis 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) [facility] [place] [facility] Diagnosis 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) [facility] Chronic pain of both knees- Primary Primary osteoarthritis of both knees Primary localized osteoarthrosis, lower leg [facility] Prostate cancer (HCC)- Primary Malignant neoplasm of [facility] Mild cognitive impairment- Primary Mild cognitive impairment, so stated [facility] Diagnosis Hypertrophy of testis Other specified disorder of male genital organs 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 and other lower urinary tract symptoms (LUTS) [facility] Hypertrophy of testis Other specified disorder of male genital organs 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 and other lower urinary tract symptoms (LUTS) [facility] Chronic pain of both knees- Primary Primary osteoarthritis of both knees Primary localized osteoarthrosis, lower leg [facility] Diagnosis 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)- Primary [facility] Pain in both knees, unspecified chronicity- Primary [facility] Diagnosis Bradycardia- Primary Other specified cardiac dysrhythmias Chest pain, unspecified type Atherosclerosis of coronary artery of [place] heart without angina pectoris, unspecified vessel or lesion type [facility] this [facility] [place] [facility]* Diagnosis 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 macular degeneration of both eyes Hyperopia of both eyes Regular astigmatism of both eyes Regular astigmatism Presbyopia documented in this [facility] [place] [facility]* Diagnosis Chronic pain of both knees- Primary Primary osteoarthritis of both knees Primary localized osteoarthrosis, lower leg [facility] [place] [facility]* Diagnosis Primary osteoarthritis of both knees- Primary Primary localized osteoarthrosis, lower leg Chronic pain of both knees [facility] [place] [facility]* Diagnosis Chronic pain of both knees- Primary Primary osteoarthritis of both knees Primary localized osteoarthrosis, lower leg documented [facility] [place] [facility]* Diagnosis Cat scratch- Primary Other and unspecified superficial injury of other, multiple, and unspecified sites, without mention of infection Cellulitis of skin Cellulitis and abscess of unspecified site Atherosclerosis of coronary artery of [place] heart without angina pectoris, unspecified vessel or lesion type Bradycardia Other specified cardiac dysrhythmias Medication monitoring encounter Encounter for therapeutic drug monitoring Other general symptoms and signs 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) Thrombocytopenia, unspecified (HCC) Thrombocytopenia, unspecified [facility] [place] [facility]* Diagnosis Cat scratch- Primary Other and unspecified superficial injury of other, multiple, and unspecified sites, without mention of infection Cellulitis of skin Cellulitis and abscess of unspecified site [facility] Diagnosis Primary osteoarthritis of both knees- Primary Primary localized osteoarthrosis, lower leg Chronic pain of both knees documented [facility] this [facility] [place] [facility]* Diagnosis Primary osteoarthritis of both knees- Primary Primary localized osteoarthrosis, lower leg Chronic pain of both knees documented [facility] this [facility] [place] [facility]* Diagnosis Primary osteoarthritis of both knees- Primary Primary localized osteoarthrosis, lower leg Chronic pain of both knees documented [facility] this [facility] [place] [facility]* Diagnosis Primary osteoarthritis of both knees- Primary Primary localized osteoarthrosis, lower leg Chronic pain of both knees [facility] Diagnosis Primary osteoarthritis of both knees- Primary Primary localized osteoarthrosis, lower leg Chronic pain of both knees documented [facility] this [facility] [place] [facility]* Diagnosis Chronic pain of both knees- Primary Primary osteoarthritis of both knees Primary localized osteoarthrosis, lower leg [facility] [place] [facility] Diagnosis Primary osteoarthritis of both knees- Primary Primary localized osteoarthrosis, lower leg Chronic pain of both knees [facility] [place] [facility] Diagnosis Chronic pain of both knees- Primary Primary osteoarthritis of both knees Primary localized osteoarthrosis, lower leg [facility] [place] [facility]* Diagnosis 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- 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 documented [facility] this [facility] [place] [facility]* Diagnosis Hypertrophy of testis Other specified disorder of male genital organs 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 and other lower urinary tract symptoms (LUTS) documented in this encounter [facility] note* Diagnosis Pain in both knees, unspecified chronicity [facility] [place] [facility]* Diagnosis Primary osteoarthritis of both knees- Primary Primary localized osteoarthrosis, lower leg documented in this encounter [facility] note* Diagnosis Primary osteoarthritis of both knees- Primary Primary localized osteoarthrosis, lower leg documented [facility] [place] [facility]* Diagnosis Primary osteoarthritis of both knees- Primary Primary localized osteoarthrosis, lower leg [facility] - Authorized Specialty Diagnoses / Procedures Referred By Vanita hinds Referred To Contact Diagnoses Mild cognitive impairment Procedures CONSULT TO [facility] Hemlaatha Shah DO [address] [place] [address] Referral ID Status Reason Start Date Expiration Date V isits Requested Visits Authorized [id number] Authorized 01/16/2022 04/16/2022 1 1 * Consult, Test, Treat (Routine) - Authorized Specialty Diagnoses / Procedures Referred By Vanita t Referred To Contact Neurology Diagnoses Mild cognitive impairment Procedures CONSULT TO NEUROLOGY OFFICE/OUTPATIENT [facility] 60-74 MINUTES Hemalatha Shah DO [address] [place] [address] Referral ID Status Reason Start Date Expiration Date Visits Requested Visits Authorized [id number] Authorized PCP Requested Referral 01/16/2022 01/16/2023 1 1 [facility] for referral (narrative)* Diagnostic Procedure Only (Routine) - Pending Review Specialty Diagnoses / Procedures Referred By Contac t Referred To Contact XR IMAGING Diagnoses Pain in both knees, unspecified chronicity Procedures XR KNEE GENERAL 4V AP BOTH/PA BOTH/LAT/MERC BILATERAL RADIOLOGIC EXAM KNEE COMPLETE 4/MORE VIEWS Scott Aparicio MD [address] [place] [address] Xr Imaging Referral ID Status Reason Start Date Expiration Date Visits Requested Visits Authorized [id number] Pending Review Auto-Generat ed Referral 08/07/2022 09/06/2023 1 1 [facility] for referral (narrative)* Diagnostic Procedure Only (Routine) - Closed Specialty Diagnoses / Procedures Referred By Vanita t Referred To Contact XR IMAGING Diagnoses Pain in both knees, unspecified chronicity Procedures XR KNEE GENERAL 4V AP BOTH/PA BOTH/LAT/MERC BILATERAL RADIOLOGIC EXAM KNEE COMPLETE 4/MORE VIEWS Scott Aparicio MD [address] [place] [address] [place] [address] Referral ID Status Reason Start Date Expiration Date V isits Requested Visits Authorized [id number] Closed Auto-Generate d Referral 08/07/2022 09/06/2023 1 1 [facility] for visit Narrative* Diagnostic Procedure Only (Routine) - Closed Specialty Diagnoses / Procedures Referred By Contac t Referred To Contact XR IMAGING Diagnoses Pain in both knees, unspecified chronicity Procedures XR KNEE GENERAL 4V AP BOTH/PA BOTH/LAT/MERC BILATERAL RADIOLOGIC EXAM KNEE COMPLETE 4/MORE VIEWS Scott Aparicio MD [address] [place] [address] [place] [id number] Referral ID Status Reason Start Date Expiration Date V isits Requested Visits Authorized [id number] Closed Auto-Generate d Referral 08/07/2022 09/06/2023 1 1 [facility] Summary Purpose Family History No Family History Records FoundNo Family History Records FoundNo Family History Records Found Advance Directives No Advanced Directives Records FoundDocuments on File Type Date Recorded 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 Advance Directive(s) 02/23/2018 11:37 AM Advance Directive(s) 04/07/2017 2:38 PM Documents on File Type Date Recorded 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 Advance Directive(s) 02/23/2018 11:37 AM Advance Directive(s) 04/07/2017 2:38 PM Reason for Referral Specialty Diagnoses / Procedures Referred By Contac t Referred To Contact MR IMAGING Diagnoses 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) Procedures MRI BRAIN WO IVCON MRI BRAIN BRAIN STEM W/O CONTRAST MATERIAL William Zabala PA-C [address] [place] [address] Mr Imaging Referral ID Status Reason Start Date Expiration Date Visits Requested Visits Authorized [id number] Authorized Auto-Generat ed Referral 10/23/2021 11/22/2022 1 1 Referral ID Status Reason Start Date Expiration Date V isits Requested Visits Authorized [id number] Closed Auto-Generate d Referral 10/23/2021 11/22/2022 1 1 Specialty Diagnoses / Procedures Referred By Contac t Referred To Contact Diagnoses 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 Bk Roman, PT [address] [place] [address] [facility] [address] [address] Referral ID Status Reason Start Date Expiration Date Visits Requested Visits Authorized [id number] Pending Review PCP Requested Referral Auto-Generate d Referral 08/16/2022 11/14/2022 1 1 Specialty Diagnoses / Procedures Referred By Contac t Referred To Contact [facility] Diagnoses Chronic pain of both knees Primary osteoarthritis of both knees Procedures CONSULT TO PAIN MGT OFFICE/OUTPATIENT [facility] 60-74 MINUTES Scott Aparicio MD [address] [place] [address] [facility] [place] [address] [place] [id number] Referral ID Status Reason Start Date Expiration Date V isits Requested Visits Authorized [id number] Closed PCP Requested Referral 08/12/2022 08/12/2023 1 1 Specialty Diagnoses / Procedures Referred By Contac t Referred To Contact [facility] Diagnoses Chronic pain of both knees Primary osteoarthritis of both knees Procedures CONSULT TO PHYSICAL THERAPY PHYSICAL THERAPY EVALUATION HIGH COMPLEX 45 MINS Scott Aparicio MD [address] [place] [address] [facility] [address] [address] Referral ID Status Reason Start Date Expiration Date Visits Requested Visits Authorized [id number] Authorized PCP Requested Referral Auto-Generate d Referral 08/12/2022 08/12/2023 99 99 Specialty Diagnoses / Procedures Referred By Contac t Referred To Contact [facility] Diagnoses Primary osteoarthritis of both knees Chronic pain of both knees Procedures PT REHAB FOLLOW UP ORDER THERAPEUTIC EXERCISES RE, EA 15 MIN. Bk Roman, PT [address] [place] [address] [facility] [address] [address] Referral ID Status Reason Start Date Expiration Date Visits Requested Visits Authorized [id number] Pending Review PCP Requested Referral Auto-Generate d Referral 09/16/2022 12/15/2022 1 1 Referral ID Status Reason Start Date Expiration Date Visits Requested Visits Authorized [id number] Pending Review PCP Requested Referral Auto-Generate d Referral 10/14/2022 01/12/2023 1 1 Medications Administered Section Inactive Administered Medications - up to 3 most recent administrations Medication Order MAR Action Action Date Dose Rate Site betamethasone acetate-betamethasone sodium phosphate 6 mg injection (CELESTONE) 6 mg, Injection - FOR ORTHO USE ONLY, ONE TIME INJECTION, 1 dose, Starting on Estefany 10/25/21 at 1511, Until Estefany 10/25/21 at 1511 Given 10/25/2021 3:11 PM EDT 6 mg lidocaine (PF) 10 mg/mL (1 %) 4 mL injection (XYLOCAINE) 4 mL, Injection - FOR ORTHO USE ONLY, ONE TIME INJECTION, 1 dose, Starting on Estefany 10/25/21 at 1511, Until Estefany 10/25/21 at 1511 Given 10/25/2021 3:11 PM EDT 4 mL Active Administered Medications - up to 3 most recent administrations Medication Order MAR Action Action Date Dose Rate Site leuprolide 30 mg injection (ELIGARD) 30 mg, SUBCUTANEOUS, EVERY 4 MONTHS, 12 doses, First dose on Fri11/27/21 at 0000, Last dose on 07/09/25 at 0000, Hazardous Chemotherapy Drug: Use appropriate PPE. Given 12/21/2021 11:05 AM EDT 30 mg Abdomen, RLQ Inactive Administered Medications - up to 3 most recent administrations Medication Order MAR Action Action Date Dose Rate Site betamethasone acetate-betamethasone sodium phosphate 6 mg injection (CELESTONE) 6 mg, Injection - FOR ORTHO USE ONLY, ONE TIME INJECTION, 1 dose, Starting on Fri05/06/22 at 1153, Until Fri05/06/22 at 1153 Given 05/06/2022 11:53 AM EST 6 mg Knee, Left betamethasone acetate-betamethasone sodium phosphate 6 mg injection (CELESTONE) 6 mg, Injection - FOR ORTHO USE ONLY, ONE TIME INJECTION, 1 dose, Starting on Fri05/06/22 at 1153, Until Fri05/06/22 at 1153 Given 05/06/2022 11:53 AM EST 6 mg Knee, Right lidocaine (PF) 10 mg/mL (1 %) 4 mL injection (XYLOCAINE) 4 mL, Injection - FOR ORTHO USE ONLY, ONE TIME INJECTION, 1 dose, Starting on Fri05/06/22 at 1153, Until Fri05/06/22 at 1153 Given 05/06/2022 11:53 AM EST 4 mL Knee, Left lidocaine (PF) 10 mg/mL (1 %) 4 mL injection (XYLOCAINE) 4 mL, Injection - FOR ORTHO USE ONLY, ONE TIME INJECTION, 1 dose, Starting on Fri05/06/22 at 1153, Until Fri05/06/22 at 1153 Given 05/06/2022 11:53 AM EST 4 mL Knee, Right Inactive Administered Medications - up to 3 most recent administrations Medication Order MAR Action Action Date Dose Rate Site fluorescein-proparacaine 1 Drop eye drops (FLUCAINE, FLUORACAINE) 1 Drop, BOTH EYES, ONCE, 1 dose, On Fri08/12/22 at 1430, FOR THE EYE. REFRIGERATE Given 08/12/2022 2:30 PM EST 1 Drop tropicamide 1 % 1 Drop (MYDRIACYL) 1 Drop, BOTH EYES, ONCE, 1 dose, On Fri08/12/22 at 1430, FOR THE EYE Given 08/12/2022 2:30 PM EST 1 Drop Inactive Administered Medications - up to 3 most recent administrations Medication Order MAR Action Action Date Dose Rate Site betamethasone acetate-betamethasone sodium phosphate 6 mg injection (CELESTONE) 6 mg, Injection - FOR ORTHO USE ONLY, ONE TIME INJECTION, 1 dose, Starting on Fri10/28/22 at 1029, Until Fri10/28/22 at 1029 Given 10/28/2022 10:29 AM EDT 6 mg Knee, Left betamethasone acetate-betamethasone sodium phosphate 6 mg injection (CELESTONE) 6 mg, Injection - FOR ORTHO USE ONLY, ONE TIME INJECTION, 1 dose, Starting on Fri10/28/22 at 1029, Until Fri10/28/22 at 1029 Given 10/28/2022 10:29 AM EDT 6 mg Knee, Right lidocaine (PF) 10 mg/mL (1 %) 4 mL injection (XYLOCAINE) 4 mL, Injection - FOR ORTHO USE ONLY, ONE TIME INJECTION, 1 dose, Starting on Fri10/28/22 at 1029, Until Fri10/28/22 at 1029 Given 10/28/2022 10:29 AM EDT 4 mL Knee, Left lidocaine (PF) 10 mg/mL (1 %) 4 mL injection (XYLOCAINE) 4 mL, Injection - FOR ORTHO USE ONLY, ONE TIME INJECTION, 1 dose, Starting on 10/28/22 at 1029, Until 10/28/22 at 1029 Given 10/28/2022 10:29 AM EDT 4 mL Knee, Right Inactive Administered Medications - up to 3 most recent administrations Medication Order MAR Action Action Date Dose Rate Site betamethasone acetate-betamethasone sodium phosphate 6 mg injection (CELESTONE) 6 mg, Injection - FOR ORTHO USE ONLY, ONE TIME INJECTION, 1 dose, Starting on Fri01/30/23 at 0824, Until Fri01/30/23 at 0824 Given 01/30/2023 8:24 AM EDT 6 mg Kn ee, Left betamethasone acetate-betamethasone sodium phosphate 6 mg injection (CELESTONE) 6 mg, Injection - FOR ORTHO USE ONLY, ONE TIME INJECTION, 1 dose, Starting on Fri01/30/23 at 0824, Until Fri01/30/23 at 0824 Given 01/30/2023 8:24 AM EDT 6 mg Kn ee, Right lidocaine (PF) 10 mg/mL (1 %) 4 mL injection (XYLOCAINE) 4 mL, Injection - FOR ORTHO USE ONLY, ONE TIME INJECTION, 1 dose, Starting on Fri01/30/23 at 0824, Until Fri01/30/23 at 0824 Given 01/30/2023 8:24 AM EDT 4 mL Kn ee, Left lidocaine (PF) 10 mg/mL (1 %) 4 mL injection (XYLOCAINE) 4 mL, Injection - FOR ORTHO USE ONLY, ONE TIME INJECTION, 1 dose, Starting on Fri01/30/23 at 0824, Until Fri01/30/23 at 0824 Given 01/30/2023 8:24 AM EDT 4 mL Kn ee, Right Active Administered Medications - up to 3 most recent administrations Medication Order MAR Action Action Date Dose Rate Site fluorescein-benoxinate 0.25-0.4 % 1 Drop (FLURESS) 1 Drop, BOTH EYES, DIRECTED, Starting on Fri02/05/23 at 1100, Until Fri02/05/23 at 2259, Administer for applanation tonometry. In the event of a Fluress shortage, administer [place]-Fluor 1 drop into both eyes as directed for applanation tonometry Given 02/05/2023 11:00 AM EDT 1 Drop Inactive Administered Medications - up to 3 most recent administrations Medication Order MAR Action Action Date Dose Rate Site sodium hyaluronate 20 mg injection (EUFLEXXA) 20 mg, Injection - FOR ORTHO USE ONLY, ONCE, 1 dose, Starting on Fri05/05/23 at 1234, Until Fri05/05/23 at 1234 Given 05/05/2023 12:34 PM EST 20 mg Knee , Left sodium hyaluronate 20 mg injection (EUFLEXXA) 20 mg, Injection - FOR ORTHO USE ONLY, ONCE, 1 dose, Starting on Fri05/05/23 at 1234, Until Fri05/05/23 at 1234 Given 05/05/2023 12:34 PM EST 20 mg Knee , Right Inactive Administered Medications - up to 3 most recent administrations Medication Order MAR Action Action Date Dose Rate Site sodium hyaluronate 20 mg injection (EUFLEXXA) 20 mg, Injection - FOR ORTHO USE ONLY, ONCE, 1 dose, Starting on Fri05/12/23 at 1405, Until Fri05/12/23 at 1405 Given 05/12/2023 2:05 PM EST 20 mg Knee, Left sodium hyaluronate 20 mg injection (EUFLEXXA) 20 mg, Injection - FOR ORTHO USE ONLY, ONCE, 1 dose, Starting on Fri05/12/23 at 1405, Until Fri05/12/23 at 1405 Given 05/12/2023 2:05 PM EST 20 mg Knee, Right Inactive Administered Medications - up to 3 most recent administrations Medication Order MAR Action Action Date Dose Rate Site sodium hyaluronate 20 mg injection (EUFLEXXA) 20 mg, Injection - FOR ORTHO USE ONLY, ONCE, 1 dose, Starting on Fri05/19/23 at 1421, Until Fri05/19/23 at 1421 Given 05/19/2023 2:21 PM EST 20 mg Knee, Left sodium hyaluronate 20 mg injection (EUFLEXXA) 20 mg, Injection - FOR ORTHO USE ONLY, ONCE, 1 dose, Starting on Fri05/19/23 at 1421, Until Fri05/19/23 at 1421 Given 05/19/2023 2:21 PM EST 20 mg Knee, Right Additional Source Comments (unrecognized sect ion and content) No Status Records FoundNo Status Records FoundNo Status Records Found INFORMATION SOURCE (unrecogn ized section and content) DATE CREATED AUTHOR AUTHOR'S ORGANIZ DARREN 12/04/2017 [facility] DATE CREATED AUTHOR AUTHOR'S ORGANIZ ATION 05/21/2023 [facility] Source Comments (unrecognize d section and content) In the event this informatio n is protected by the Federal Confidentiality of Alcohol and Drug Abuse Patient Records regulations: The Federal rules restrict any use of the information to criminally investigate or prosecute any alcohol or drug abuse patient.[facility] the event this information is protected by the Federal Confidentiality of Alcohol and Drug Abuse Patient Records regulations: The Federal rules restrict any use of the information to criminally investigate or prosecute any alcohol or drug abuse patient.[facility] the event this information is protected by the Federal Confidentiality of Alcohol and Drug Abuse Patient Records regulations: The Federal rules restrict any use of the information to criminally investigate or prosecute any alcohol or drug abuse patient.[facility] the event this information is protected by the Federal Confidentiality of Alcohol and Drug Abuse Patient Records regulations: The Federal rules restrict any use of the information to criminally investigate or prosecute any alcohol or drug abuse patient.[facility] the event this information is protected by the Federal Confidentiality of Alcohol and Drug Abuse Patient Records regulations: The Federal rules restrict any use of the information to criminally investigate or prosecute any alcohol or drug abuse patient.[facility] the event this information is protected by the Federal Confidentiality of Alcohol and Drug Abuse Patient Records regulations: The Federal rules restrict any use of the information to criminally investigate or prosecute any alcohol or drug abuse patient.[facility] the event this information is protected by the Federal Confidentiality of Alcohol and Drug Abuse Patient Records regulations: The Federal rules restrict any use of the information to criminally investigate or prosecute any alcohol or drug abuse patient.[facility] the event this information is protected by the Federal Confidentiality of Alcohol and Drug Abuse Patient Records regulations: The Federal rules restrict any use of the information to criminally investigate or prosecute any alcohol or drug abuse patient.[facility] the event this information is protected by the Federal Confidentiality of Alcohol and Drug Abuse Patient Records regulations: The Federal rules restrict any use of the information to criminally investigate or prosecute any alcohol or drug abuse patient.[facility] the event this information is protected by the Federal Confidentiality of Alcohol and Drug Abuse Patient Records regulations: The Federal rules restrict any use of the information to criminally investigate or prosecute any alcohol or drug abuse patient.[facility] the event this information is protected by the Federal Confidentiality of Alcohol and Drug Abuse Patient Records regulations: The Federal rules restrict any use of the information to criminally investigate or prosecute any alcohol or drug abuse patient.[facility] the event this information is protected by the Federal Confidentiality of Alcohol and Drug Abuse Patient Records regulations: The Federal rules restrict any use of the information to criminally investigate or prosecute any alcohol or drug abuse patient.[facility] the event this information is protected by the Federal Confidentiality of Alcohol and Drug Abuse Patient Records regulations: The Federal rules restrict any use of the information to criminally investigate or prosecute any alcohol or drug abuse patient.[facility] the event this information is protected by the Federal Confidentiality of Alcohol and Drug Abuse Patient Records regulations: The Federal rules restrict any use of the information to criminally investigate or prosecute any alcohol or drug abuse patient.[facility] the event this information is protected by the Federal Confidentiality of Alcohol and Drug Abuse Patient Records regulations: The Federal rules restrict any use of the information to criminally investigate or prosecute any alcohol or drug abuse patient.[facility] Hospital[facility] the event this information is protected by the Federal Confidentiality of Alcohol and Drug Abuse Patient Records regulations: The Federal rules restrict any use of the information to criminally investigate or prosecute any alcohol or drug abuse patient.[facility] HospitalIn the event this information is protected by the Federal Confidentiality of Alcohol and Drug Abuse Patient Records regulations: The Federal rules restrict any use of the information to criminally investigate or prosecute any alcohol or drug abuse patient.[facility] HospitalIn the event this information is protected by the Federal Confidentiality of Alcohol and Drug Abuse Patient Records regulations: The Federal rules restrict any use of the information to criminally investigate or prosecute any alcohol or drug abuse patient.[facility] HospitalIn the event this information is protected by the Federal Confidentiality of Alcohol and Drug Abuse Patient Records regulations: The Federal rules restrict any use of the information to criminally investigate or prosecute any alcohol or drug abuse patient.[facility] HospitalIn the event this information is protected by the Federal Confidentiality of Alcohol and Drug Abuse Patient Records regulations: The Federal rules restrict any use of the information to criminally investigate or prosecute any alcohol or drug abuse patient.[facility] HospitalIn the event this information is protected by the Federal Confidentiality of Alcohol and Drug Abuse Patient Records regulations: The Federal rules restrict any use of the information to criminally investigate or prosecute any alcohol or drug abuse patient.[facility] HospitalIn the event this information is protected by the Federal Confidentiality of Alcohol and Drug Abuse Patient Records regulations: The Federal rules restrict any use of the information to criminally investigate or prosecute any alcohol or drug abuse patient.[facility] HospitalIn the event this information is protected by the Federal Confidentiality of Alcohol and Drug Abuse Patient Records regulations: The Federal rules restrict any use of the information to criminally investigate or prosecute any alcohol or drug abuse patient.[facility] HospitalIn the event this information is protected by the Federal Confidentiality of Alcohol and Drug Abuse Patient Records regulations: The Federal rules restrict any use of the information to criminally investigate or prosecute any alcohol or drug abuse patient.[facility] HospitalIn the event this information is protected by the Federal Confidentiality of Alcohol and Drug Abuse Patient Records regulations: The Federal rules restrict any use of the information to criminally investigate or prosecute any alcohol or drug abuse patient.[facility] HospitalIn the event this information is protected by the Federal Confidentiality of Alcohol and Drug Abuse Patient Records regulations: The Federal rules restrict any use of the information to criminally investigate or prosecute any alcohol or drug abuse patient.[facility] HospitalIn the event this information is protected by the Federal Confidentiality of Alcohol and Drug Abuse Patient Records regulations: The Federal rules restrict any use of the information to criminally investigate or prosecute any alcohol or drug abuse patient.[facility] HospitalIn the event this information is protected by the Federal Confidentiality of Alcohol and Drug Abuse Patient Records regulations: The Federal rules restrict any use of the information to criminally investigate or prosecute any alcohol or drug abuse patient.[facility] HospitalIn the event this information is protected by the Federal Confidentiality of Alcohol and Drug Abuse Patient Records regulations: The Federal rules restrict any use of the information to criminally investigate or prosecute any alcohol or drug abuse patient.[facility] HospitalIn the event this information is protected by the Federal Confidentiality of Alcohol and Drug Abuse Patient Records regulations: The Federal rules restrict any use of the information to criminally investigate or prosecute any alcohol or drug abuse patient.[facility] HospitalIn the event this information is protected by the Federal Confidentiality of Alcohol and Drug Abuse Patient Records regulations: The Federal rules restrict any use of the information to criminally investigate or prosecute any alcohol or drug abuse patient.[facility] HospitalIn the event this information is protected by the Federal Confidentiality of Alcohol and Drug Abuse Patient Records regulations: The Federal rules restrict any use of the information to criminally investigate or prosecute any alcohol or drug abuse patient.[facility] HospitalIn the event this information is protected by the Federal Confidentiality of Alcohol and Drug Abuse Patient Records regulations: The Federal rules restrict any use of the information to criminally investigate or prosecute any alcohol or drug abuse patient.[facility] HospitalIn the event this information is protected by the Federal Confidentiality of Alcohol and Drug Abuse Patient Records regulations: The Federal rules restrict any use of the information to criminally investigate or prosecute any alcohol or drug abuse patient.[facility] HospitalIn the event this information is protected by the Federal Confidentiality of Alcohol and Drug Abuse Patient Records regulations: The Federal rules restrict any use of the information to criminally investigate or prosecute any alcohol or drug abuse patient.[facility] HospitalIn the event this information is protected by the Federal Confidentiality of Alcohol and Drug Abuse Patient Records regulations: The Federal rules restrict any use of the information to criminally investigate or prosecute any alcohol or drug abuse patient.[facility] HospitalIn the event this information is protected by the Federal Confidentiality of Alcohol and Drug Abuse Patient Records regulations: The Federal rules restrict any use of the information to criminally investigate or prosecute any alcohol or drug abuse patient.[facility] HospitalIn the event this information is protected by the Federal Confidentiality of Alcohol and Drug Abuse Patient Records regulations: The Federal rules restrict any use of the information to criminally investigate or prosecute any alcohol or drug abuse patient.[facility] HospitalIn the event this information is protected by the Federal Confidentiality of Alcohol and Drug Abuse Patient Records regulations: The Federal rules restrict any use of the information to criminally investigate or prosecute any alcohol or drug abuse patient.[facility] HospitalIn the event this information is protected by the Federal Confidentiality of Alcohol and Drug Abuse Patient Records regulations: The Federal rules restrict any use of the information to criminally investigate or prosecute any alcohol or drug abuse patient.[facility] HospitalIn the event this information is protected by the Federal Confidentiality of Alcohol and Drug Abuse Patient Records regulations: The Federal rules restrict any use of the information to criminally investigate or prosecute any alcohol or drug abuse patient.[facility] HospitalIn the event this information is protected by the Federal Confidentiality of Alcohol and Drug Abuse Patient Records regulations: The Federal rules restrict any use of the information to criminally investigate or prosecute any alcohol or drug abuse patient.[facility] HospitalIn the event this information is protected by the Federal Confidentiality of Alcohol and Drug Abuse Patient Records regulations: The Federal rules restrict any use of the information to criminally investigate or prosecute any alcohol or drug abuse patient.[facility] HospitalIn the event this information is protected by the Federal Confidentiality of Alcohol and Drug Abuse Patient Records regulations: The Federal rules restrict any use of the information to criminally investigate or prosecute any alcohol or drug abuse patient.[facility] Reason for Visit (unrecogniz ed section and content) Specialty Diagnoses / Procedures Referred By Vanita hinds Referred To Contact [facility] Diagnoses Chronic pain of both knees Primary osteoarthritis of both knees Procedures CONSULT TO PHYSICAL THERAPY PHYSICAL THERAPY EVALUATION HIGH COMPLEX 45 MINS Scott Aparicio MD [address] [place] [address] [facility] [address] [place] [address] Referral ID Status Reason Start Date Expiration Date Visits Requested Visits Authorized [id number] Authorized PCP Requested Referral Auto-Generate d Referral 08/12/2022 08/12/2023 99 99 Reason Comments PT Progress Note Specialty Diagnoses / Procedures Referred By Vanita hinds Referred To Contact [facility] Diagnoses Chronic pain of both knees Primary osteoarthritis of both knees Procedures CONSULT TO PHYSICAL THERAPY PHYSICAL THERAPY EVALUATION HIGH COMPLEX 45 MINS Scott Aparicio MD [address] [place] [address] [facility] [address] [place] [address] Reason Comments Prescription Refills Reason Comments Memory Loss Reason Comments Results Specialty Diagnoses / Procedures Referred By Contac t Referred To Contact [facility] Diagnoses 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) Procedures MRI BRAIN WO IVCON MRI BRAIN BRAIN STEM W/O CONTRAST MATERIAL William Zabala PA-C [address] [place] [address] Mr Imaging Referral ID Status Reason Start Date Expiration Date V isits Requested Visits Authorized [id number] Closed Auto-Generate d Referral 10/23/2021 11/22/2022 1 1 Reason Comments Established Patient Knee Pain Reason Comments PSA results for Lupron injection Reason Onset Date Comments Refill Request 12/15/2021 Reason Comments Follow Up Reason Comments New Patient [facility]ness Specialty Diagnoses / Procedures Referred By Contac t Referred To Contact Diagnoses 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) Procedures CONSULT TO [facility] OFFICE/OUTPATIENT NEW HIGH MDM 60-74 MINUTES Aries Chaudhary MD [address] [place] [address] Referral ID Status Reason Start Date Expiration Date V isits Requested Visits Authorized [id number] Closed PCP Requested Referral 11/09/2021 11/09/2022 1 1 Reason Onset Date Comments Refill Request 01/26/2022 Reason Comments Refill Request Reason Onset Date Comments Opened In Error 02/25/2022 Reason Comments Established Patient Follow Up Established Patient 14 wks post Monovisc injections Follow Up 14 wks post Monovisc injections Reason Onset Date Comments Refill Request 07/08/2022 Reason Comments Results MRI Reason Comments ER F/U Chest pain and left shoulder pain 08/08/22 [facility] Reason Comments Glaucoma Suspect Evaluation Macular Degeneration Evaluation Reason Comments PT Eval Reason Comments Physical Therapy Reason Comments Established Patient Knee Pain Reason Comments Abrasion Reason Comments Follow Up Knee Pain Reason Onset Date Comments Refill Request 11/13/2022 Reason Onset Date Comments Refill Request 12/23/2022 Reason Comments Glaucoma Evaluation Reason Comments Knee Pain 13 weeks 4 days post visit bilateral knee pain with injections given Established Patient 13 weeks 4 days post visit bilateral knee pain with injections given Knee Pain Established Patient Reason Comments Established Patient Euflexxa injection # 2 bilateral knees Established Patient Reason Comments Established Patient Injections Care Teams (unrecognized sec tion and content) Gift Basket Packer Relationship Specialty Start Date End Date Aries Chaudhary MD [address] [place] [address] PCP - General Family Practice 02/24/15 Gift Basket Packer Relationship Specialty Start Date End Date Aries Chaudhary MD [address] [place] [address] PCP - General Family Practice 02/24/15 Gift Basket Packer Relationship Specialty Start Date End Date Aries Chaudhary MD [address] [place] [address] PCP - General Family Practice 02/24/15 Gift Basket Packer Relationship Specialty Start Date End Date Aries Chaudhary MD [address] [place] [address] PCP - General Family Practice 02/24/15 Gift Basket Packer Relationship Specialty Start Date End Date Aries Chaudhary MD [address] [place] [address] PCP - General Family Practice 02/24/15 Gift Basket Packer Relationship Specialty Start Date End Date Aries Chaudhary MD [address] [place] [address] PCP - General Family Practice 02/24/15 Gift Basket Packer Relationship Specialty Start Date End Date Aries Chaudhary MD [address] [place] [address] PCP - General Family Practice 02/24/15 Gift Basket Packer Relationship Specialty Start Date End Date Aries Chaudhary MD [address] [place] [address] PCP - General Family Practice 02/24/15 Gift Basket Packer Relationship Specialty Start Date End Date Aries Chaudhary MD [address] [place] [address] PCP - General Family Practice 02/24/15 Gift Basket Packer Relationship Specialty Start Date End Date Aries Chaudhary MD [address] [place] [address] PCP - General Family Practice 02/24/15 Gift Basket Packer Relationship Specialty Start Date End Date Aries Chaudhary MD [address] [place] [address] PCP - General Family Practice 02/24/15 Gift Basket Packer Relationship Specialty Start Date End Date Aries Chaudhary MD [address] [place] [address] PCP - General Family Medicine 02/24/15 Gift Basket Packer Relationship Specialty Start Date End Date Aries Chaudhary MD [address] [place] [address] PCP - General Family Medicine 02/24/15 Gift Basket Packer Relationship Specialty Start Date End Date Aries Chaudhary MD [address] [place] [address] PCP - General Family Medicine 02/24/15 Gift Basket Packer Relationship Specialty Start Date End Date Aries Chaudhary MD [address] [place] [address] PCP - General Family Medicine 02/24/15 Gift Basket Packer Relationship Specialty Start Date End Date Aries Chaudhary MD [address] [place] [address] PCP - General Family Medicine 02/24/15 Gift Basket Packer Relationship Specialty Start Date End Date Aries Chaudhary MD [address] [place] [address] PCP - General Family Medicine 02/24/15 Gift Basket Packer Relationship Specialty Start Date End Date Aries Chaudhary MD [address] [place] [address] PCP - General Family Medicine 02/24/15 Gift Basket Packer Relationship Specialty Start Date End Date Aries Chaudhary MD [address] [place] [address] PCP - General Family Medicine 02/24/15 Gift Basket Packer Relationship Specialty Start Date End Date Aries Chaudhary MD [address] [place] [address] PCP - General Family Medicine 02/24/15 Gift Basket Packer Relationship Specialty Start Date End Date Aries Chaudhary MD [address] [place] [address] PCP - General Family Medicine 02/24/15 Gift Basket Packer Relationship Specialty Start Date End Date Aries Chaudhary MD [address] [place] [address] PCP - General Family Medicine 02/24/15 Gift Basket Packer Relationship Specialty Start Date End Date Aries Chaudhary MD [address] [place] [address] PCP - General Family Medicine 02/24/15 Gift Basket Packer Relationship Specialty Start Date End Date Aries Chaudhary MD [address] [place] [address] PCP - General Family Medicine 02/24/15 Gift Basket Packer Relationship Specialty Start Date End Date Aries Chaudhary MD [address] [place] [address] PCP - General Family Medicine 02/24/15 Gift Basket Packer Relationship Specialty Start Date End Date Aries Chaudhary MD [address] [place] [address] PCP - General Family Medicine 02/24/15 Gift Basket Packer Relationship Specialty Start Date End Date Aries Chaudhary MD [address] [place] [address] PCP - General Family Medicine 02/24/15 Gift Basket Packer Relationship Specialty Start Date End Date Aries Chaudhary MD [address] [place] [address] PCP - General Family Medicine 02/24/15 Gift Basket Packer Relationship Specialty Start Date End Date Aries Chaudhary MD [address] [place] [address] PCP - General Family Medicine 02/24/15 Gift Basket Packer Relationship Specialty Start Date End Date Aries Chaudhary MD [address] [place] [address] PCP - General Family Medicine 02/24/15 Gift Basket Packer Relationship Specialty Start Date End Date Aries Chaudhary MD [address] [place] [address] PCP - General Family Medicine 02/24/15 Gift Basket Packer Relationship Specialty Start Date End Date Aries Chaudhary MD [address] [place] [address] PCP - General Family Medicine 02/24/15 Gift Basket Packer Relationship Specialty Start Date End Date Aries Chaudhary MD [address] [place] [address] PCP - General Family Medicine 02/24/15 Gift Basket Packer Relationship Specialty Start Date End Date Aries Chaudhary MD [address] [place] [address] PCP - General Family Medicine 02/24/15 FOR RECORDS PERTAINING TO PATIENTS WHO ARE OR HAVE BEEN ENROLLED IN A CHEMICAL DEPENDENCY/SUBSTANCEABUSE PROGRAM, SOME INFORMATION MAY BE OMITTED. This clinical summary was aggregated from multiple sources. Caution should be exercised in using it in the provision of clinical care. This summary normalizes information from multiple sources, and as a consequence, information in this document may materially change the coding, format and clinical context of patient data. In addition, data may be omitted in some cases. CLINICAL DECISIONS SHOULD BE BASED ON THE PRIMARY CLINICAL RECORDS. [facility] [employer] [facility]. provides no warranty or guarantee of the accuracy or completeness of information in this document.
[2023-07-10 11:36] LABS: PSA,Total- Diagnostic 4.62 ng/mL (0.0-4.0)
== END | disposition home or self-care (01) ==
LOC: LAB 10:54
PROVIDERS: PCP Family Medicine; Referring Provider Nurse Practitioner; Visit Provider Nurse Practitioner
DX: C61 Malignant neoplasm of prostate (principal)
CPT/HCPCS: 36415; 84153

== ENCOUNTER 2023-11-29 13:24 | Emergency (ER) | payer MEDICARE, BC, SELFPAY ==
[2023-11-29 13:25] VITALS: BP 113/66; PULSE 71; RESP 18; TEMP 36.6; O2SAT 97; BMI 21.7
--- NOTE | 2023-11-29 13:38 | RAD_ITS ---
HISTORY: Pain and swelling. TECHNIQUE: XR Hand Min 3 Views. COMPARISON: None. FINDINGS: BONES : No acute fracture identified. Degenerative osteophytes and subchondral cysts. JOINTS: No dislocation. 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 SOFT TISSUES: Soft tissue swelling of the wrist and hand. Surgical clips adjacent to the distal radius RAD/Hand Min 3 Views IMPRESSION: No acute fracture or dislocation identified in the left hand. Moderate arthritis with soft tissue swelling. Electronically Signed: Leticia Rascon MD at 14:27 EDT ,
--- NOTE | 2023-11-29 13:38 | EX.ED.UPPERE ---
HPI History of Present Illness Chief Complaint: Upper Extremity Injury Narrative Narrative: 88-year-old male who denies significant past medical history presents with his because of left hand pain and swelling that started around 5:00 this morning when he awoke. He is right-hand dominant. He denies any injury. No fevers or chills, no nausea or vomiting or other symptoms. He states he put a salve on his left hand and took a pain pill which helped relieve his symptoms. He went to urgent care where he was evaluated, but sent to the emergency department for x-ray of his left hand. He thinks may be he had a bug bite at the base of his left second digit because he states that area is itchy as well. [facility] Medical History Wears glasses Wears partial dentures Wears dentures Cancer Arthritis Prostate disease High cholesterol Injury of back Difficulty swallowing History of hiatal hernia Non-smoker History of edema History of stress test History of heart attack History of irregular heartbeat Stenosis of left carotid artery Atherosclerosis of coronary artery bypass graft of [place] heart with angina pectoris Secondary pulmonary arterial hypertension Bilateral carotid artery stenosis History of esophageal stricture Glaucoma Premature ventricular contractions Hyperlipidemia Essential (primary) hypertension Prostate cancer Home Medications ?Medication ?Instructions ?Recorded ?Last Taken ?Type ascorbic acid (vitamin C) 500 mg 500 mg PO DAILY@0800 04/09/15 03/27/17 History tablet tamsulosin 0.4 mg capsule 0.4 cap PO QHS 04/09/15 03/27/17 History aspirin 81 mg chewable tablet 81 mg PO QHS 04/11/15 03/01/19 History rosuvastatin 10 mg tablet 10 mg PO QWEEK #14 tabs 09/14/19 Unknown Rx Handicap placard #1 ea 08/31/21 Unknown Rx hydrochlorothiazide 25 mg tablet 25 mg PO 4XW 08/31/21 Unknown History flaxseed oil 1,000 mg capsule 1,000 mg PO DAILY 12/25/21 Unknown History cholecalciferol (vitamin D3) 25 25 mcg PO DAILY 03/05/22 Unknown History mcg (1,000 unit) tablet coenzyme Q10 200 mg capsule 200 mg PO DAILY 03/05/22 Unknown History cyanocobalamin (vitamin B-12) 500 500 mcg PO DAILY 03/05/22 Unknown History mcg tablet (Vitamin B-12) multivitamin 1 tab PO DAILY 03/05/22 Unknown History omega-3 fatty acids 1,000 mg 1,000 mg PO DAILY 03/05/22 Unknown History capsule pyridoxine (vitamin B6) 100 mg 100 mg PO DAILY 03/05/22 Unknown History tablet saw palmetto 450 mg capsule 450 mg PO DAILY 03/05/22 Unknown History vitamin E (dl, acetate) 180 mg 180 mg PO DAILY 03/05/22 Unknown History (400 unit) capsule rummowm-xvdpvlmmn-[id number] 333 mg-133 1 tab PO DAILY 08/22/22 Unknown History mg-5 mg tablet cod liver oil 1 cap PO DAILY 08/22/22 Unknown History glucosamine mensah dipot-chond mensah 1 cap PO DAILY 08/22/22 Unknown History sod-C-Mn 500 mg-400 mg-66 mg-3 mg cap sour adrian extract 1,000 mg 1,000 mg PO DAILY 08/22/22 Unknown History capsule (Tart Adrian Extract) metoprolol succinate 25 mg 25 mg PO DAILY #90 tabs 02/07/23 Unknown Rx tablet,extended release 24 hr (Toprol XL) isosorbide mononitrate 30 mg See Rx Instructions .Route 06/23/23 Unknown Rx tablet,extended release 24 hr .COMPLEX #90 tabs lisinopril 10 mg tablet 20 mg PO DAILY This is a dose 09/23/23 Unknown History decrease nitroglycerin 0.4 mg sublingual 0.4 mg sublingual Q5-15M PRN Chest 09/29/23 Unknown Rx tablet Pain #25 tabs omeprazole 20 mg capsule,delayed 20 mg PO DAILY #90 caps 11/03/23 Unknown Rx release amiodarone 100 mg tablet 100 mg PO DAILY requests 100 11/27/23 Unknown Rx mg tablets #90 tabs Allergy/AdvReac Type Severity Reaction Status Date / Time codeine AdvReac Unknown Verified 11/29/23 13:25 Fowuoyd-KMK-LyY Reductase AdvReac myalgias Verified 11/29/23 13:25 Inhibitor (Jzviffg-Udc-Xyi Reductase Inhibitor) Family History Brother Cancer prostate Diabetes Heart disease Daughter Breast cancer Father Heart disease Mother Cancer skin Hypertension Sister Cancer lung Hypertension Surgical History History of esophagogastroduodenoscopy (EGD) (~10/2020) History of left heart catheterization (03/01/19) History of esophageal dilatation History of spinal fusion History of coronary artery stent placement (07/22/12) H/O coronary artery bypass surgery (11/09/02) Social History Smoking Status: Never smoker alcohol intake: never substance use type: does not use caffeine: No ROS ROS ED ROS Narrative Constitutional: No fever, no chills. HEENT: No sore throat. No neck pain. No loss of vision. No rhinorrhea. Cardiovascular: No chest pain. No palpitations. No pedal edema. Respiratory: No cough, no shortness of breath. Abdominal: No abdominal pain. No nausea. No vomiting. Genitourinary: No dysuria. No hematuria. Musculoskeletal: No myalgias. Left hand swelling at base of second digit, and base of first digit. Itchiness at base of left second digit. Neurologic: No headaches. No dizziness. No lightheadedness. Skin: No rash. No change in color. Psychiatric: No depression. No anxiety. EXAM Physical Exam Narrative Exam Narrative: Afebrile. Vital signs noted. Nontoxic-appearing. HEENT: Normocephalic. Atraumatic. PERRL, EOMI. Neck soft and supple. No point tenderness or step off. Cardiovascular: Regular rate and rhythm. No murmurs, rubs, or gallops appreciated. Respiratory: No tachypnea. Lungs clear to auscultation bilaterally. Gastrointestinal: Abdomen soft, nontender, with normoactive bowel sounds. No rebound or guarding. Neurological: Awake. Alert. Nonfocal, nonlateralizing. Skin: No rash. Normal color. No pallor. Musculoskeletal: No pedal edema. Full range of motion extremities. Positive swelling at base of second digit at MCP joint. Minimal erythema, no lymphangitic streaking. Small raised area which may be consistent with bug bite. Mild swelling at base of left thumb/MCP joint first digit. Able to oppose thumb. Full range of motion of digits. Good capillary refill digits left hand. Const Vital Signs: 11/29/23 13:25 Temperature 98 F Temperature Source Temporal Pulse Rate 71 Respiratory Rate 18 Blood Pressure 113/66 Blood Pressure Mean 81 Pulse Ox 97 Oxygen Delivery Method Room Air MDM MDM MDM Narrative Medical decision making narrative: In the differential diagnosis is swelling secondary to inflammation from bug bite, versus osteo-arthritis. I have low suspicion for septic joint because he has full range of motion of his digits. No feel antibiotics are indicated as there is no lymphangitic streaking. X-rays were obtained of the left hand and 3 views and interpreted by myself independently. On my independent interpretation, there is no evidence of fracture. He does have DJD of the hand especially in those localized areas of swelling. I reviewed the radiology report which confirms my independent interpretation as well. At this point in time, I do not think it is a cellulitis that requires antibiotics. I do feel that he is probably having more osteoarthritis problems in those particular joints where it is swollen. He will continue ice and elevation of his hand and wqny-php-[id number] medications as directed. Follow-up with his primary care provider. Return instructions to the emergency department were reviewed. Disposition is discharged home in stable condition. Radiography X-Ray: Read by ED Physician, Read by Radiologist, No Fracture and DJD Discharge Plan Triage Chief Complaint: Upper Extremity Injury ED Provider: Mahendra Garcia Dx/Rx/DC Orders Clinical Impression: Swelling of finger joint of left hand, Osteoarthritis of left hand Instructions: ED Osteoarthritis Prescriptions: No Action rosuvastatin 10 mg tablet 10 mg PO QWEEK Qty: 14 4RF hydrochlorothiazide 25 mg tablet 25 mg PO 4XW Patient Comments: blood pressure (DME) Handicap placard See Rx Instructions .Route .MEDSUPPLY Qty: 1 0RF Rx Instructions: lifetime multivitamin Tablet 1 tab PO DAILY omega-3 fatty acids 1,000 mg capsule 1,000 mg PO DAILY cyanocobalamin (vitamin B-12) [Vitamin B-12] 500 mcg tablet 500 mcg PO DAILY pyridoxine (vitamin B6) 100 mg tablet 100 mg PO DAILY coenzyme Q10 200 mg capsule 200 mg PO DAILY saw palmetto 450 mg capsule 450 mg PO DAILY Rx Instructions: give with food (meal/snack) cholecalciferol (vitamin D3) 25 mcg (1,000 unit) tablet 25 mcg PO DAILY vitamin E (dl, acetate) 180 mg (400 unit) capsule 180 mg PO DAILY Tart Adrian Extract 1,000 mg capsule 1,000 mg PO DAILY iiukarm-wekngbign-ebil [id number] mg tablet 1 tab PO DAILY flaxseed oil 1,000 mg capsule 1,000 mg PO DAILY Rx Instructions: administer with a meal lisinopril 10 mg tablet 20 mg PO DAILY ascorbic acid (vitamin C) 500 MG tablet 500 mg PO DAILY@0800 Patient Comments: supplement tamsulosin 0.4 MG capsule 0.4 cap PO QHS Patient Comments: prostate/ urination aspirin 81 MG tablet,chewable 81 mg PO QHS Patient Comments: instructed by Dr Garcia to stop on 11/24 cod liver oil Capsule 1 cap PO DAILY Patient Comments: supplement glucosam mensah zrx-lvydnmzzc-E-Mn [id number] mg capsule 1 cap PO DAILY Patient Comments: bone supplement metoprolol succinate [Toprol XL] 25 mg tablet extended release 24 hr 25 mg PO DAILY Qty: 90 3RF isosorbide mononitrate 30 mg tablet extended release 24 hr See Rx Instructions .ROUTE .COMPLEX Qty: 90 3RF Dose Instruction: TAKE 1 TABLET BY MOUTH EVERY DAY Rx Instructions: TAKE 1 TABLET BY MOUTH EVERY DAY nitroglycerin 0.4 mg tablet, sublingual 0.4 mg sublingual Q5-15M PRN (Reason: Chest Pain) Qty: 25 3RF Rx Instructions: do not exceed 3 doses per episode omeprazole 20 mg capsule,delayed release(/EC) 20 mg PO DAILY Qty: 90 3RF amiodarone 100 mg tablet 100 mg PO DAILY Qty: 90 1RF Primary Care Provider: Aries Chaudhary Referrals: Aries Chaudhary MD [Primary Care Provider] - As soon as possible Activity Restrictions/Additional Instructions: Return with swelling of entire hand, fever, increased redness, new or worsening symptoms. Print Language: Nepali Disposition Disposition: Home, Self Care
== END 2023-11-29 15:08 | disposition home or self-care (01) ==
PROVIDERS: Emergency Provider Emergency Medicine; PCP Family Medicine; Visit Provider Emergency Medicine
DX: M19.042 Primary osteoarthritis, left hand (principal); M79.89 Other specified soft tissue disorders; E78.00 Pure hypercholesterolemia, unspecified; I25.810 Atherosclerosis of coronary artery bypass graft(s) without angina pectoris; I10 Essential (primary) hypertension; Z79.899 Other long term (current) drug therapy; Z79.82 Long term (current) use of aspirin
CPT/HCPCS: 73130; 99282

== ENCOUNTER → 2023-12-22 | Outpatient (CLI) | payer MEDICARE, BC, SELFPAY ==
--- NOTE | 2023-12-22 09:28 | CDU_ITS ---
Reason For Study: Carotid Stenosis Rt. Velocities/BP Lt. Velocities/BP Prox CCA 86/17 cm/sec. Prox CCA 95/27 cm/sec. Mid CCA 111/25 cm/sec. Mid CCA 58/17 cm/sec. Dist CCA 116/23 cm/sec. Dist CCA 77/19 cm/sec. Prox ICA 59/16 cm/sec. Prox ICA 145/52 cm/sec. Mid ICA 98/36 cm/sec. Mid ICA 96/29 cm/sec. Dist ICA 94/34 cm/sec. Dist ICA 73/26 cm/sec. Rt. ICA/CCA = 0.9. Lt. ICA/CCA = 2.5. Prox ECA 109/8 cm/sec. Prox ECA 107/10 cm/sec. Rt. Vert. 46/12 cm/sec. Lt. Vert. 54/17 cm/sec. Right Extracranial There is heterogeneous, irregular atherosclerotic plaque noted in the right common carotid artery. There is heterogeneous, irregular atherosclerotic plaque noted in the right internal carotid artery. There is intimal thickening but no significant atherosclerotic plaque noted in the right external carotid artery. Antegrade flow is noted in the right vertebral artery. Left Extracranial There is heterogeneous, irregular atherosclerotic plaque noted in the left common carotid artery. There is heterogeneous, irregular atherosclerotic plaque noted in the left internal carotid artery. There is intimal thickening but no significant atherosclerotic plaque noted in the left external carotid artery. Antegrade flow is noted in the left vertebral artery. Procedure Carotid Duplex 14695. This is a Carotid Duplex examination using B-mode, color flow and specral Doppler. Exam performed in department. VL/Carotid Duplex Ultrasound Interpretation Summary Heterogenous irregular plaque at the proximal right internal carotid artery wit h less than 50% stenosis Less than 50% stenosis right external carotid artery Irregular plaque at the proximal left internal carotid artery with less than 50 % stenosis Less than 50% stenosis left external carotid artery Patent and antegrade vertebral arteries bilaterally No progression of disease from the previous examination of December 19, 2022 Ordering Physician: [place] Olvera Referring Physician: Aries Chaudhary Performed By: Aneudy CAMACHO RDCS, Aparna and Student
== END | disposition home or self-care (01) ==
PROVIDERS: PCP Family Medicine; Referring Provider Physician Assistant; Visit Provider Physician Assistant
DX: R55 Syncope and collapse (principal)
CPT/HCPCS: 93880

== ENCOUNTER → 2024-01-01 | Outpatient (CLI) | payer MEDICARE, BC, SELFPAY | END | disposition home or self-care (01) | PROVIDERS: PCP Family Medicine; Referring Provider Nurse Practitioner; Visit Provider Nurse Practitioner | DX: C61 Malignant neoplasm of prostate (principal) | CPT/HCPCS: 36415; 84153 ==

== ENCOUNTER → 2024-04-07 | Outpatient (CLI) | payer MEDICARE, BC, SELFPAY ==
[2024-04-07 15:01] LABS: Absolute Lymphocyte Count 2.19 X10^3/uL (0.83-4.51); Absolute Neutrophil Count 2.5 X10^3/uL (2.0-7.7); Basophil# 0.04 X10^3/uL; Basophil% 0.8 % (0-1); Eosinophil# 0.08 X10^3/uL; Eosinophils% 1.5 % (0-5); Hematocrit 37.9 % (40-54); Hemoglobin 12.1 g/dL (13.0-16.5); Lymphocyte # 2.19 X10^3/ul (0.83-4.51); Mean Corp Hgb Conc 31.9 g/dL (32-36); Mean Platelet Vol. 9.2 fl (6.2-12.0); Monocyte# 0.34 X10^3/uL; Monocyte% 6.5 % (0-10); NRBC Flagged by Analyzer 0 % (0-5); Neutrophil # 2.54 X10^3/uL (2.7-7.7); Neutrophil % 48.8 % (47-70); Platelet Count 260 K/mm3 (150-450); RBC Distribution Width CV 13.2 % (11.6-14.6); RBC Distribution Width SD 45.9 fl (35.1-43.9); Red Blood Count 4.03 M/mm3 (4.6-6.2); White Blood Count 5.2 K/mm3 (4.4-11.0)
[2024-04-07 16:01] LABS: ALB/GLOB Ratio 1.1 RATIO (0.9-2.4); AST(SGOT) 17 U/L (15-37); Alanine Aminotransfer ALT/SGPT 22 U/L (16-61); Albumin, Serum 3.4 g/dL (3.2-5.0); Alkaline Phosphatase 77 U/L (45-117); Anion Gap 6 (5-15); BUN 23 mg/dL (7-18); BUN/Creat Ratio 20.2 RATIO (10-20); Calcium,Total 9.1 mg/dL (8.5-10.1); Chloride 103 mmol/L (98-107); Cholesterol 169 mg/dL (200); Creatinine, Serum 1.14 mg/dL (0.70-1.30); EST Glomerular Filtration Rate 65 mL/min (>60); Est Glom Filt Rate - Afr Amer 78 mL/min (>60); Globulin 3.1 g/dL (2.2-4.2); Glucose 112 mg/dL (74-106); High Density Lipoprotein 74 mg/dL; Potassium 3.7 mmol/L (3.5-5.1); Protein, Total 6.5 g/dL (6.4-8.2); Sodium Level 139 mmol/L (136-145); T4 Free Direct 1.14 ng/dL (0.76-1.46); Triglycerides 81 mg/dL; Very Low Density Lipoprotein 16 mg/dL (5-40)
== END | disposition home or self-care (01) ==
LOC: LAB 13:41
PROVIDERS: PCP Family Medicine; Referring Provider Family Medicine; Visit Provider Nurse Practitioner Family
DX: I25.709 Atherosclerosis of coronary artery bypass graft(s), unspecified, with unspecified angina pectoris (principal); E78.2 Mixed hyperlipidemia; I49.3 Ventricular premature depolarization; Z79.899 Other long term (current) drug therapy
CPT/HCPCS: 36415; 80053; 80061; 84439; 84443; 85025

== ENCOUNTER → 2024-04-13 | Outpatient (CLI) | payer MEDICARE, BC, SELFPAY ==
[2024-04-13 13:02] LABS: PSA,Total- Diagnostic 0.68 ng/mL (0.0-4.0)
== END | disposition home or self-care (01) ==
LOC: LAB 11:35
PROVIDERS: PCP Family Medicine; Referring Provider Urology; Visit Provider Urology
DX: C61 Malignant neoplasm of prostate (principal)
CPT/HCPCS: 36415; 84153

== ENCOUNTER → 2024-09-23 | Outpatient (CLI) | payer MEDICARE, BC, SELFPAY ==
[2024-09-23 15:01] LABS: AST(SGOT) 34 U/L (<=37); Alanine Aminotransfer ALT/SGPT 19 U/L (<=46); Albumin, Serum 3.7 g/dL (3.4-4.8); Alkaline Phosphatase 77 U/L (40-129); Anion Gap 13 (5-15); BUN 15 mg/dL (4-19); BUN/Creat Ratio 14.7 RATIO (10-20); Bilirubin, Direct 0.52 mg/dL (0.00-0.30); Calcium,Total 8.9 mg/dL (7.6-11.0); Carbon Dioxide 25.1 mmol/L (21.0-32.0); Chloride 96 mmol/L (98-108); Cholesterol 126 mg/dL (<=200); Creatinine, Serum 1.02 mg/dL (0.70-1.20); EST Glomerular Filtration Rate 71 (>60); Glucose 102 mg/dL (70-99); High Density Lipoprotein 73 mg/dL; Low Density Lipoprotein Calc. 43 mg/dL; Protein, Total 6.7 g/dL (5.9-8.4); Sodium Level 134 mmol/L (133-145); Total Bilirubin 1.06 mg/dL (0.00-1.30); Triglycerides 51 mg/dL; Very Low Density Lipoprotein 10 mg/dL (5-40); cholesterol:hdl ratio screen 1.74
== END | disposition home or self-care (01) ==
LOC: LAB 13:38
PROVIDERS: PCP Family Medicine; Referring Provider Nurse Practitioner Family; Visit Provider Nurse Practitioner Family
DX: E78.00 Pure hypercholesterolemia, unspecified (principal)
CPT/HCPCS: 36415; 80048; 80061; 80076

== ENCOUNTER → 2024-10-07 | Outpatient (CLI) | payer MEDICARE, BC, SELFPAY ==
[2024-10-07 13:15] LABS: PSA,Total- Diagnostic 4.13 ng/mL (0.00-4.00)
[2024-10-07 15:25] LABS: Anion Gap 11 (5-15); BUN 19 mg/dL (4-19); BUN/Creat Ratio 20.4 RATIO (10-20); Calcium,Total 8.8 mg/dL (7.6-11.0); Carbon Dioxide 22.6 mmol/L (21.0-32.0); Chloride 103 mmol/L (98-108); Creatinine, Serum 0.94 mg/dL (0.70-1.20); EST Glomerular Filtration Rate 79 (>60); Glucose 122 mg/dL (70-99); Potassium 4.3 mmol/L (3.3-5.1); Sodium Level 136 mmol/L (133-145)
== END | disposition home or self-care (01) ==
LOC: LAB 11:43
PROVIDERS: Physician Assistant Medical; PCP Family Medicine; Referring Provider Urology; Visit Provider Urology
DX: R97.21 Rising PSA following treatment for malignant neoplasm of prostate (principal)
CPT/HCPCS: 36415; 80048; 84153

== ENCOUNTER → 2024-11-02 | Outpatient (CLI) | payer MEDICARE, BC, SELFPAY ==
[2024-11-02 16:09] LABS: Anion Gap 10 (5-15); BUN 19 mg/dL (4-19); BUN/Creat Ratio 20.2 RATIO (10-20); Carbon Dioxide 26.1 mmol/L (21.0-32.0); Chloride 105 mmol/L (98-108); Creatinine, Serum 0.96 mg/dL (0.70-1.20); EST Glomerular Filtration Rate 77 (>60); Glucose 115 mg/dL (70-99); Sodium Level 141 mmol/L (133-145)
== END | disposition home or self-care (01) ==
LOC: LAB 13:54
PROVIDERS: PCP Family Medicine; Referring Provider Internal Medicine Cardiovascular Disease; Visit Provider Internal Medicine Cardiovascular Disease
DX: I49.3 Ventricular premature depolarization (principal); Z79.899 Other long term (current) drug therapy
CPT/HCPCS: 36415; 80048; 84443

== ENCOUNTER 2024-11-24 15:43 | Emergency (ER) | payer MEDICARE, BC, SELFPAY ==
[2024-11-24] VITALS (11 sets, daily range): BP systolic 84–155; BP diastolic 59–96; PULSE 57–74; RESP 10–18; TEMP 36.2–36.8; O2SAT 93–100; BMI 22.1
--- NOTE | 2024-11-24 16:02 | ED.VIS.FALL ---
HPI HPI - Fall History of Present Illness Chief Complaint: Dislocation Informant: patient Occured/Mechanism Occurred: Today Narrative: Fell off of a lawnmower Pain/Injury Pain Location: head, neck and upper extremity (Left shoulder) Quality of Pain: Stabbing Current Severity: Severe Maximum Severity: Severe Worsened by: Movement Relieved by: Nothing Associated Symptoms Associated Symptoms: Negative for Parasthesias, Weakness, Loss of function, Inability to ambulate, Loss of consciousness or Amnesia Narrative Narrative: Patient presents with left shoulder injury that occurred today. Patient states he was on his riding lawnmower and was going down a hill. Patient states he felt like he was going to roll over. Patient states he grabbed a pole and pulled himself off of the mower. Patient states he felt his left shoulder pop at that time. Patient states his pain is sharp and stabbing. Patient states it hurt worse with movement. Patient states that continues to help with it. Patient thinks he hit his head. Patient denies any loss of consciousness. Patient was able to ambulate after he fell. Patient admits to some pain over the right side of his neck. Patient denies any paresthesias or weakness. 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 Secondary pulmonary arterial hypertension Bilateral carotid artery stenosis History of esophageal stricture Glaucoma Premature ventricular contractions Hyperlipidemia Essential (primary) hypertension Prostate cancer Home Medications ?Medication ?Instructions ?Recorded ?Last Taken ?Type ascorbic acid (vitamin C) 500 mg 500 mg PO DAILY@0800 04/09/15 03/27/17 History tablet tamsulosin 0.4 mg capsule 0.4 cap PO QHS 04/09/15 03/27/17 History aspirin 81 mg chewable tablet 81 mg PO QHS 04/11/15 03/01/19 History rosuvastatin 10 mg tablet 10 mg PO QWEEK #14 tabs 09/14/19 Unknown Rx Handicap placard #1 ea 08/31/21 Unknown Rx flaxseed oil 1,000 mg capsule 1,000 mg PO DAILY 12/25/21 Unknown History cholecalciferol (vitamin D3) 25 25 mcg PO DAILY 03/05/22 Unknown History mcg (1,000 unit) tablet coenzyme Q10 200 mg capsule 200 mg PO DAILY 03/05/22 Unknown History multivitamin 1 tab PO DAILY 03/05/22 Unknown History omega-3 fatty acids 1,000 mg 1,000 mg PO DAILY 03/05/22 Unknown History capsule pyridoxine (vitamin B6) 100 mg 100 mg PO DAILY 03/05/22 Unknown History tablet saw palmetto 450 mg capsule 450 mg PO DAILY 03/05/22 Unknown History vitamin E (dl, acetate) 180 mg 180 mg PO DAILY 03/05/22 Unknown History (400 unit) capsule xprcsyt-anajcjjct-tcio 333 mg-133 1 tab PO DAILY 08/22/22 Unknown History mg-5 mg tablet glucosamine mensah dipot-chond mensah 1 cap PO DAILY 08/22/22 Unknown History sod-C-Mn 500 mg-400 mg-66 mg-3 mg cap sour adrian extract 1,000 mg 1,000 mg PO DAILY 08/22/22 Unknown History capsule (Tart Adrian Extract) nitroglycerin 0.4 mg sublingual 0.4 mg sublingual Q5-15M PRN Chest 09/29/23 Unknown Rx tablet Pain #25 tabs metoprolol succinate 25 mg 25 mg PO DAILY #90 tabs 02/02/24 Unknown Rx tablet,extended release 24 hr (Toprol XL) amiodarone 100 mg tablet 100 mg PO DAILY requests 100 05/27/24 Unknown Rx mg tablets #90 tabs isosorbide mononitrate 30 mg 30 mg PO DAILY #90 TABLETS 06/11/24 Unknown Rx tablet,extended release 24 hr cod liver oil 1 cap PO BID 09/08/24 Unknown History ferrous sulfate 325 mg (65 mg 325 mg PO QDAY 09/08/24 Unknown History iron) tablet omeprazole 20 mg capsule,delayed 40 mg PO DAILY 11/02/24 Unknown History release spironolactone 25 mg tablet 25 mg PO QDAY #90 tabs 11/02/24 Unknown Rx Allergy/AdvReac Type Severity Reaction Status Date / Time codeine AdvReac Unknown Verified 11/24/24 15:45 Nwneflg-MQM-ReZ Reductase AdvReac myalgias Verified 11/24/24 15:45 Inhibitor (Mwphyvd-Cdk-Umc Reductase Inhibitor) Family History Brother Cancer prostate Diabetes Heart disease Daughter Breast cancer Father Heart disease Mother Cancer skin Hypertension Sister Cancer lung Hypertension Surgical History History of esophagogastroduodenoscopy (EGD) (~10/2020) History of left heart catheterization (03/01/19) History of esophageal dilatation History of spinal fusion History of coronary artery stent placement (07/22/12) H/O coronary artery bypass surgery (11/09/02) Social History Smoking Status: Never smoker alcohol intake: never substance use type: does not use caffeine: No ROS ROS ED Constitutional Constitutional ED: Denies chills or fever(s) Eyes Eyes: Denies blurry vision or change in vision ENT ENT ED: Denies rhinorrhea or sore throat Cardiovascular Cardiovascular: Denies chest pain or palpitations Respiratory/Chest Respiratory/Chest: Denies cough or dyspnea Gastrointestinal Gastrointestinal: Denies nausea or vomiting Genitourinary Genitourinary ED: Denies dysuria or hematuria Musculoskeletal Musculoskeletal: Reports neck pain; Denies back pain Integumentary Reports Abrasions; Denies abscess or rash Neurologic Neurologic: Denies headache(s) or weakness Allergic/Immunologic Allergic/Immunologic ED: Denies mouth swelling or urticaria EXAM Physical Exam Const Vital Signs: 11/24/24 15:45 11/24/24 15:55 11/24/24 16:44 Temperature 98.1 F Temperature Source Oral Pulse Rate 66 61 Pulse Rate [1 (Initial Baseline)] Pulse Rate [2] Respiratory Rate 10 L 15 Respiratory Rate [1 (Initial Baseline)] Respiratory Rate [2] Blood Pressure 137/67 H 145/96 H Blood Pressure [1 (Initial Baseline)] Blood Pressure [2] Blood Pressure Mean 90 112 Baseline BP Pulse Ox 93 98 Oxygen Delivery Method Room Air Room Air Oxygen Delivery Method [1 (Initial Baseline)] Oxygen Delivery Method [2] Oxygen Flow Rate (L/min) [1 (Initial Baseline)] Oxygen Flow Rate (L/min) [2] EtCo2 - Document during CPR and with ROSC EtCo2 - Document during CPR and with ROSC [1 (Initial Baseline)] EtCo2 - Document during CPR and with ROSC [2] 11/24/24 17:56 11/24/24 18:00 11/24/24 18:06 Temperature 98.2 F Temperature Source Pulse Rate 62 62 Pulse Rate [1 (Initial Baseline)] 63 Pulse Rate [2] 61 Respiratory Rate 17 12 Respiratory Rate [1 (Initial Baseline)] 12 Respiratory Rate [2] 16 Blood Pressure 155/75 H 115/67 Blood Pressure [1 (Initial Baseline)] 116/60 Blood Pressure [2] 84/71 L Blood Pressure Mean Baseline BP 155/75 Pulse Ox 99 99 Oxygen Delivery Method Room Air Room Air Oxygen Delivery Method [1 (Initial Baseline)] Nasal Cannula Oxygen Delivery Method [2] Nasal Cannula Oxygen Flow Rate (L/min) [1 (Initial Baseline)] 2 Oxygen Flow Rate (L/min) [2] 5 EtCo2 - Document during CPR and with ROSC 33 38 EtCo2 - Document during CPR and with ROSC [1 (Initial Baseline)] 33 EtCo2 - Document during CPR and with ROSC [2] 33 11/24/24 18:09 11/24/24 18:12 11/24/24 18:24 Temperature Temperature Source Pulse Rate 57 L 61 Pulse Rate [1 (Initial Baseline)] Pulse Rate [2] Respiratory Rate 14 17 Respiratory Rate [1 (Initial Baseline)] Respiratory Rate [2] Blood Pressure 112/59 L 127/62 H Blood Pressure [1 (Initial Baseline)] Blood Pressure [2] Blood Pressure Mean Baseline BP Pulse Ox 100 99 Oxygen Delivery Method Room Air Room Air Oxygen Delivery Method [1 (Initial Baseline)] Oxygen Delivery Method [2] Oxygen Flow Rate (L/min) [1 (Initial Baseline)] Oxygen Flow Rate (L/min) [2] EtCo2 - Document during CPR and with ROSC 34 33 38 EtCo2 - Document during CPR and with ROSC [1 (Initial Baseline)] EtCo2 - Document during CPR and with ROSC [2] 11/24/24 19:00 Temperature Temperature Source Pulse Rate 60 Pulse Rate [1 (Initial Baseline)] Pulse Rate [2] Respiratory Rate 14 Respiratory Rate [1 (Initial Baseline)] Respiratory Rate [2] Blood Pressure 149/69 H Blood Pressure [1 (Initial Baseline)] Blood Pressure [2] Blood Pressure Mean 95 Baseline BP Pulse Ox 99 Oxygen Delivery Method Room Air Oxygen Delivery Method [1 (Initial Baseline)] Oxygen Delivery Method [2] Oxygen Flow Rate (L/min) [1 (Initial Baseline)] Oxygen Flow Rate (L/min) [2] EtCo2 - Document during CPR and with ROSC EtCo2 - Document during CPR and with ROSC [1 (Initial Baseline)] EtCo2 - Document during CPR and with ROSC [2] Positive well nourished and well developed General Appearance ED: well developed and NAD HEENT Reports TM's normal bilaterally Eyes PERRL and EOMs intact bilaterally Neck Neck Narrative: There is tenderness over the right cervical paraspinal muscles. There is mild midline tenderness. There is no bony crepitus or step-off. Range of motion was limited in all motions of the cervical spine secondary to pain. Chest Wall inspection of chest normal and palpation of chest normal Resp normal respiratory effort and clear to auscultation bilaterally Cardio regular rate and regular rhythm GI non-tender and non-distended Palpation: soft Extremity Extremity Narrative: There is tenderness over the left shoulder. There is edema and ecchymosis. Range of motion was limited in all motions of the left shoulder secondary to pain. Strength is 5/5 in the radial, median, and ulnar areas. Sensation was intact to light touch in the radial, median, and ulnar areas. There is also abrasions and contusions over bilateral knees. There is some mild tenderness over the left wrist. There is good range of motion of the bilateral knees. There is good range of motion of the left wrist. Neuro oriented x3, CN's II-XII intact bilaterally, moves all extremities, no focal motor deficits and no sensory deficits noted Sepideh Coma Scale: document GCS findings Spontaneous Obeys Commands Oriented 15 Sensorium / Orientation: alert Motor Exam: strength 5/5 throughout Psych mental status grossly normal and thought process normal MDM MDM MDM Narrative Medical decision making narrative: Differential diagnosis includes cervical spine fracture, cervical strain, closed head injury, intracranial bleeding, proximal humerus fracture, shoulder dislocation, and sprain. X-rays of the left shoulder will be obtained to assess for fracture or dislocation. CT scan of the cervical spine will be obtained to assess for cervical spine fracture and spondylolisthesis. CT scan of the brain will be obtained to assess for intracranial bleeding. Radiography Diagnostic Testing: Clinical Impression(s) from Imaging Studies Brain CT 11/24/24 16:13 IMPRESSION: No acute intracranial process. Reading Location: [id number] Cervical Spine CT 11/24/24 16:13 IMPRESSION: No acute cervical fracture or subluxations. Amhi-bv-zbpgnjae multilevel degenerative changes of the cervical spine as above. Right upper lobe reticular densities may reflect atypical pneumonia, postinflammatory changes, and/or component of interstitial edema. There is likely underlying mild interstitial edema. Right mastoid air cell opacification may reflect mastoiditis. Reading Location: [id number] Shoulder X-Ray 11/24/24 16:48 IMPRESSION: Anterior dislocation of the left shoulder. No acute fracture. Mild degenerative changes of the left shoulder. Visualized portions of the left lung are clear. Reading Location: [id number] Shoulder X-Ray 11/24/24 18:30 IMPRESSION: Interval reduction and resolution of anterior shoulder dislocation now in appropriate alignment. No new dislocations or fractures. Mild degenerative changes of the left shoulder. Reading Location: [facility] CT scan of the brain was obtained. There is no acute intracranial abnormality. This was interpreted by the radiologist and was also independently reviewed by myself. CT scan of the cervical spine was obtained. There is no acute fracture or spondylolisthesis. There is no soft tissue swelling. There are diffuse degenerative changes. This was interpreted by the radiologist and was also independently reviewed by myself. X-rays of the left shoulder were obtained. There are 2 views. On my independent interpretation, there is no acute fracture. There is subcoracoid dislocation. Radiologist also interpreted the x-rays and agrees. Repeat x-rays of the left shoulder were obtained. There are 2 views. On my independent interpretation, the previous reduction is adequately reduced. There is good alignment. There is no acute fracture. Radiologist also interpreted the x-rays and agrees. X-rays of the left hip were obtained. There are 3 views. On my independent interpretation, there is no acute fracture or dislocation noted. There are degenerative changes noted. Radiologist also interpreted the x-rays and agrees. Treatment and Re-Evaluation Narrative: Patient was advised of his findings. Patient was advised of the need for sedation to reduce the shoulder dislocation. Patient was given the opportunity ask questions. Patient had no further questions. Patient denies any history of problems with anesthesia or family history of problems with anesthesia. After informed consent, the patient was placed on cardiac and continuous pulse oximeter monitors. Patient was given a dose of 50 mg of propofol. After adequate sedation, the shoulder was reduced without difficulty. Patient tolerated the procedure well. Patient felt better after the procedure. Neurovascular exam was intact before and after the procedure. Patient had no adverse effects. Patient tolerated the procedure well. Patient was placed in a sling and swath. Patient was instructed to follow-up with his primary care physician in 5 to 7 days. Patient was instructed to return if worse in any way. Patient understood and was agreeable with the plan. All questions were answered. Procedures Procedural Sedation 1 (Initial Baseline): Consent Signed: Yes Any Problems With Anesthesia: No You/Your family experience fever (hyperthermia) w/anesthesia: No Sedation medication: Propofol Dose: 50 Maliampati Score: Class II ASA Classification: II Discharge Plan Triage Chief Complaint: Dislocation ED Provider: Devon Gross Dx/Rx/DC Orders Clinical Impression: Anterior dislocation of left shoulder, Contusion of left hip, initial encounter, Acute cervical myofascial strain Instructions: ED Dislocation: Shoulder (Reduced) Prescriptions: No Action rosuvastatin 10 mg tablet 10 mg PO QWEEK Qty: 14 4RF (DME) Handicap placard See Rx Instructions .Route .MEDSUPPLY Qty: 1 0RF Rx Instructions: lifetime multivitamin Tablet 1 tab PO DAILY omega-3 fatty acids 1,000 mg capsule 1,000 mg PO DAILY pyridoxine (vitamin B6) 100 mg tablet 100 mg PO DAILY coenzyme Q10 200 mg capsule 200 mg PO DAILY saw palmetto 450 mg capsule 450 mg PO DAILY Rx Instructions: give with food (meal/snack) cholecalciferol (vitamin D3) 25 mcg (1,000 unit) tablet 25 mcg PO DAILY vitamin E (dl, acetate) 180 mg (400 unit) capsule 180 mg PO DAILY Tart Adrian Extract 1,000 mg capsule 1,000 mg PO DAILY zoesxik-zpgrddxvy-cepb 333-133-5 mg tablet 1 tab PO DAILY flaxseed oil 1,000 mg capsule 1,000 mg PO DAILY Rx Instructions: administer with a meal spironolactone 25 mg tablet 25 mg PO QDAY Qty: 90 3RF omeprazole 20 mg capsule,delayed release(DR/EC) 40 mg PO DAILY ferrous sulfate 325 mg (65 mg iron) tablet 325 mg PO QDAY ascorbic acid (vitamin C) 500 MG tablet 500 mg PO DAILY@0800 Patient Comments: supplement tamsulosin 0.4 MG capsule 0.4 cap PO QHS Patient Comments: prostate/ urination aspirin 81 MG tablet,chewable 81 mg PO QHS Patient Comments: instructed by Dr Garcia to stop on 11/24 glucosam mensah dvz-vzxwdwqkn-C-Mn 190-948-91-3 mg capsule 1 cap PO DAILY Patient Comments: bone supplement cod liver oil Capsule 1 cap PO BID Patient Comments: supplement nitroglycerin 0.4 mg tablet, sublingual 0.4 mg sublingual Q5-15M PRN (Reason: Chest Pain) Qty: 25 3RF Rx Instructions: do not exceed 3 doses per episode metoprolol succinate [Toprol XL] 25 mg tablet extended release 24 hr 25 mg PO DAILY Qty: 90 3RF amiodarone 100 mg tablet 100 mg PO DAILY Qty: 90 3RF isosorbide mononitrate 30 mg tablet extended release 24 hr 30 mg PO DAILY Qty: 90 3RF Primary Care Provider: Aries Chaudhary Referrals: Aries Chaudhary MD [Primary Care Provider] - 5-7 Days Print Language: Guinean Disposition Disposition: Home, Self Care
--- NOTE | 2024-11-24 16:13 | CT_ITS ---
PROCEDURE: BRAIN/HEAD WITHOUT CONTRAST 11/24/2024 REASON FOR EXAM: INJURY/PAIN TECHNIQUE: Head CT without intravenous contrast. Coronal and Sagittal reconstruction series were provided. One or more dose reduction techniques were used (e.g., Automated exposure control, adjustment of the mA and/or kV according to patient size, use of iterative reconstruction technique. RADIATION DOSE SUMMARY: DLP: 1160 mGycm COMPARISON: None FINDINGS: There is no acute infarct, intracranial hemorrhage, or mass effect. There is no hydrocephalus or significant midline shift. There is mild chronic microvascular ischemic changes and mild parenchymal volume loss. No acute, depressed calvarial fractures. No large scalp hematomas. Sphenoid sinus fluid may reflect sinusitis. CT/Brain/Head without Contrast IMPRESSION: No acute intracranial process. Reading Location: [id number]
--- NOTE | 2024-11-24 16:13 | CT_ITS ---
PROCEDURE: SPINE CERVICAL WITHOUT CONTRAS 11/24/2024 REASON FOR EXAM: INJURY/PAIN TECHNIQUE: Cervical spine CT without contrast. Coronal and Sagittal reconstruction series were provided. One or more dose reduction techniques were used (e.g., Automated exposure control, adjustment of the mA and/or kV according to patient size, use of iterative reconstruction technique RADIATION DOSE SUMMARY: DLP: 371 mGycm COMPARISON: None FINDINGS: No acute compression deformity, fracture, or subluxation. Wire posterior fixation hardware seen at the spinous processes of C5 to C7. Gevo-fj-vimusogq multilevel degenerative changes with mild multilevel foraminal stenosis due to facet hypertrophy and uncovertebral hypertrophy. Mild multilevel central canal stenosis without high- grade stenosis. The prevertebral soft tissues are not thickened. Thyroid is unremarkable. Limited sections of the lung apices demonstrate no pneumothorax. Right upper lobe reticular densities may reflect atypical pneumonia, postinflammatory changes, and/or component of interstitial edema. There is likely underlying interstitial edema. Right mastoid air cell opacification may reflect mastoiditis. CT/Spine Cervical without Contras IMPRESSION: No acute cervical fracture or subluxations. Xefi-xy-apyyuvls multilevel degene rative changes of the cervical spine as above. Right upper lobe reticular densities may reflect atypical pneumonia, postinflam matory changes, and/or component of interstitial edema. There is likely underlying mild interstitial edema. Right mastoid air cell opacification may reflect mastoiditis. Reading Location: [id number]
[2024-11-24] MEDS: Ondansetron 4 MG/2 ML Vial IV (16:22)
[2024-11-24] MEDS: Morphine 4 MG/ML Syringe IM (16:22)
--- NOTE | 2024-11-24 16:48 | RAD_ITS ---
PROCEDURE: SHOULDER MIN 2 VIEWS 11/24/2024 REASON FOR EXAM: INJURY/PAIN TECHNIQUE: Two views of the left shoulder COMPARISON: None RAD/Shoulder min 2 Views IMPRESSION: Anterior dislocation of the left shoulder. No acute fracture. Mild degenerati ve changes of the left shoulder. Visualized portions of the left lung are clear. Reading Location: [id number]
[2024-11-24] MEDS: Propofol 200 MG/20 ML Vial IV BOLUS (18:08)
--- NOTE | 2024-11-24 18:30 | RAD_ITS ---
PROCEDURE: SHOULDER MIN 2 VIEWS 11/24/2024 REASON FOR EXAM: INJURY/PAIN TECHNIQUE: Two views of the left shoulder COMPARISON: Earlier in the day on 11/24/2024 RAD/Shoulder min 2 Views IMPRESSION: Interval reduction and resolution of anterior shoulder dislocation now in appro priate alignment. No new dislocations or fractures. Mild degenerative changes of the left shoulder. Reading Location: [id number]
--- NOTE | 2024-11-24 19:05 | RAD_ITS ---
PROCEDURE: HIP, UNI W/ PELVIS 2-3 VIEWS 11/24/2024 REASON FOR EXAM: INJURY/PAIN TECHNIQUE: AP view of the pelvis and two views of the left hip FINDINGS: No visible pelvic or left hip fracture. Positive for vascular calcification RAD/HIP, UNI W/ Pelvis 2-3 Views IMPRESSION: Negative for fracture Reading Location: [facility]
== END 2024-11-24 21:22 | disposition home or self-care (01) ==
PROVIDERS: Emergency Provider Emergency Medicine; PCP Family Medicine; Visit Provider Emergency Medicine
DX: S43.015A Anterior dislocation of left humerus, initial encounter (principal); S16.1XXA Strain of muscle, fascia and tendon at neck level, initial encounter; S70.02XA Contusion of left hip, initial encounter; W17.89XA Other fall from one level to another, initial encounter; E78.00 Pure hypercholesterolemia, unspecified; I25.10 Atherosclerotic heart disease of native coronary artery without angina pectoris; I10 Essential (primary) hypertension; Z95.5 Presence of coronary angioplasty implant and graft; Z79.82 Long term (current) use of aspirin; Z79.899 Other long term (current) drug therapy
CPT/HCPCS: 23650; 70450; 72125; 73030; 73502; 96372; 96374; 96376; 99285; A4216; J2405

== ENCOUNTER → 2025-01-06 | Outpatient (CLI) | payer MEDICARE, BC, SELFPAY ==
--- NOTE | 2025-01-06 15:01 | CDU_ITS ---
Reason For Study Reason For Study: Carotid stenosis Rt. Velocities/BP Lt. Velocities/BP Prox CCA 73.8/7.9 cm/sec. Prox CCA 71/11 cm/sec. Mid CCA 83.9/10.2 cm/sec. Mid CCA 90/13.9 cm/sec. Dist CCA 86.3/11.4 cm/sec. Dist CCA 66.7/9 cm/sec. Prox ICA 50.4/11.6 cm/sec. Prox ICA 141.2/24.3 cm/sec. Mid ICA 63.6/19.2 cm/sec. Mid ICA 67.4/13.5 cm/sec. Dist ICA 65.5/18.2 cm/sec. Dist ICA 63/16.8 cm/sec. Rt. ICA/CCA = 0.78. Lt. ICA/CCA = 1.57. Prox ECA 85.1 cm/sec. Prox ECA 96.1/6.5 cm/sec. Rt. Vert. 34.3/6.9 cm/sec. Lt. Vert. 40.1/9.5 cm/sec. Right Extracranial There is heterogeneous, irregular atherosclerotic plaque noted in the right common carotid artery. There is heterogeneous, irregular atherosclerotic plaque noted in the right internal carotid artery. There is intimal thickening but no significant atherosclerotic plaque noted in the right external carotid artery. Antegrade flow is noted in the right vertebral artery. Left Extracranial There is heterogeneous, irregular atherosclerotic plaque noted in the left common carotid artery. There is heterogeneous, irregular atherosclerotic plaque noted in the left internal carotid artery. There is intimal thickening but no significant atherosclerotic plaque noted in the left external carotid artery. Antegrade flow is noted in the left vertebral artery. Procedure Carotid Duplex [id number]. This is a Carotid Duplex examination using B-mode, color flow and specral Doppler. Exam performed in department. VL/Carotid Duplex Ultrasound Interpretation Summary Mild (<50%) stenosis right extracranial internal carotid. Moderate (50-69%) stenosis left extracranial internal carotid. Patent and antegrade vertebrals bilaterally. Ordering Physician: Devon Coello Referring Physician: Aries Chaudhary Performed By: Alberta Santiago Solo
== END | disposition home or self-care (01) ==
LOC: CVS 15:01
PROVIDERS: PCP Family Medicine; Referring Provider Surgery Trauma Surgery; Visit Provider Surgery Trauma Surgery
DX: I65.22 Occlusion and stenosis of left carotid artery (principal)
CPT/HCPCS: 93880

== ENCOUNTER → 2025-03-07 | Outpatient (CLI) | payer MEDICARE, BC, SELFPAY ==
[2025-03-07 13:06] LABS: AST(SGOT) 26 U/L (<=37); Alanine Aminotransfer ALT/SGPT 18 U/L (<=46); Albumin, Serum 4.0 g/dL (3.4-4.8); Alkaline Phosphatase 81 U/L (40-129); Bilirubin, Direct 0.42 mg/dL (0.00-0.30); Cholesterol 148 mg/dL (<=200); Globulin 2.5 g/dL (2.2-4.2); Low Density Lipoprotein Calc. 67 mg/dL; Triglycerides 57 mg/dL; Very Low Density Lipoprotein 11 mg/dL (5-40); cholesterol:hdl ratio screen 2.13
[2025-03-07 13:14] LABS: PSA,Total- Diagnostic 2.77 ng/mL (0.00-4.00)
== END | disposition home or self-care (01) ==
LOC: LAB 11:04
PROVIDERS: Nurse Practitioner Family; PCP Family Medicine; Referring Provider Urology; Visit Provider Urology
DX: C61 Malignant neoplasm of prostate (principal); E78.00 Pure hypercholesterolemia, unspecified
CPT/HCPCS: 36415; 80061; 80076; 84153

== ENCOUNTER → 2025-05-18 | Outpatient (CLI) | payer MEDICARE, BC, SELFPAY ==
[2025-05-18 13:01] LABS: Hematocrit 44.7 % (40-54); Hemoglobin 14.4 g/dL (13.0-16.5); Immature Granulocytes Count 0.020 X10^3/uL (0.0-0.0); Mean Corp Hgb Conc 32.2 g/dL (32-36); Mean Corpuscular Volume 93.5 fL (80-94); Mean Platelet Vol. 9.3 fl (6.2-12.0); NRBC Flagged by Analyzer 0 % (0-5); Platelet Count 298 K/mm3 (150-450); RBC Distribution Width CV 13.3 % (11.6-14.6); RBC Distribution Width SD 46.1 fl (35.1-43.9); Red Blood Count 4.78 M/mm3 (4.6-6.2); White Blood Count 7.9 K/mm3 (4.4-11.0)
[2025-05-18 13:46] LABS: AST(SGOT) 27 U/L (<=37); Alanine Aminotransfer ALT/SGPT 16 U/L (<=46); Albumin, Serum 4.2 g/dL (3.4-4.8); Alkaline Phosphatase 90 U/L (40-129); Anion Gap 10 (5-15); BUN 21 mg/dL (4-19); BUN/Creat Ratio 20.3 RATIO (10-20); Bilirubin, Direct 0.42 mg/dL (0.00-0.30); Calcium,Total 9.8 mg/dL (7.6-11.0); Carbon Dioxide 26.4 mmol/L (21.0-32.0); Chloride 103 mmol/L (98-108); Globulin 2.8 g/dL (2.2-4.2); Glucose 121 mg/dL (70-99); Magnesium 2.3 mg/dL (1.5-2.2); Potassium 5.0 mmol/L (3.3-5.1)
== END | disposition home or self-care (01) ==
LOC: LAB 12:06
PROVIDERS: PCP Family Medicine; Referring Provider Nurse Practitioner Family; Visit Provider Nurse Practitioner Family
DX: I10 Essential (primary) hypertension (principal); I25.709 Atherosclerosis of coronary artery bypass graft(s), unspecified, with unspecified angina pectoris; E78.2 Mixed hyperlipidemia; I49.3 Ventricular premature depolarization; Z79.899 Other long term (current) drug therapy
CPT/HCPCS: 36415; 80048; 80076; 83735; 84443; 85025